=== PATIENT | female | born 1965 | race Caucasian/White ===

== ENCOUNTER → 2016-04-11 | Outpatient (CLI) | payer OTHER ==
[~2016-04-11] MED LIST: ALBU1.25 IH; ALBU17AE3 INH; ALBU2.5V4 IH; ALBU2.5V4 NEB; ALBUTEROL INHALER; CLTR1C90 TP; CODEINE; DESV50TA PO; DIAZ2TAB PO; FLUT1DIS26 IH; GUAI-647 PO; HYDR-3584 PO; HYDR-3922 PO; KLONOPIN; LEVO750T39 PO; LISI10TA2 PO; METF500T8 PO; PRD10T PO; PROMETHAZINE; RT-ALBUINH IH; TERB15CR8 TOP; TIOT4MIS2 IH; TRAZ100T92 PO; XANAX; [UNRECOGNIZED DRUG - REMARK]
--- NOTE | 2016-04-11 19:53 | Diagnostic Imaging Report ---
Digital mammogram bilateral screening. This study was compared to the prior exams of 01/14/2015 and 12/09/2014. At this time, there are no current complaints. The current study was also evaluated with a Computer Aided Detection (CAD) system. FINDINGS: The fibroglandular tissue in both breasts is dense. This does limit the sensitivity of this exam. Overall, there does not appear to have been any significant change when compared to the prior study. No primary or secondary sign of malignancy is noted. IMPRESSION: There is no radiographic evidence for malignancy. ACR BI-RADS Category 1: Negative. Result letter will be mailed to the patient. Note: At least 10% of breast cancer is not imaged by mammography. Dictated by: Dictated on workstation # [id number]
== END ==
LOC: RAD 14:09
PROVIDERS: ATTEND Nurse Practitioner Adult Health
DX: Z12.31 Encounter for screening mammogram for malignant neoplasm of breast (principal)

== ENCOUNTER 2017-02-16 05:30 | Outpatient (CLI) | payer MEDICAID ==
[~2017-02-16] VITALS: Ht 167.6 cm; Wt 78.0 kg
[2017-02-16] MEDS ORDERED: ASPI-586 PO (08:59)
== END 2017-02-16 09:05 ==
LOC: PREOP 05:30
PROVIDERS: ATTEND Surgery
DX: Z01.818 Encounter for other preprocedural examination (principal); L72.9 Follicular cyst of the skin and subcutaneous tissue, unspecified

== ENCOUNTER 2017-02-23 06:57 | Day surgery (SDC) | payer MEDICARE, MEDICAID ==
[~2017-02-23] VITALS: Ht 167.6 cm; Wt 78.0 kg
[~2017-02-23 06:57] MED LIST changes: +ASPI-586 PO
[2017-02-23 07:20] VITALS: BP 154/74
--- OUTSIDE RECORDS SUMMARY | 2017-02-23 07:44 | XMS REPORT ---
Author GERDA López [facility] eClinicalWorks Address Unknown Phone Unavailable Care Team Providers Care Psychologist Personnel Name Role Phone GERDA STARKS CP Unavailable Allergies, Adverse Reactions, Alerts Substance Reaction Event Type Xanax vomiting, wheezing, too stong for pt Drug Allergy Seroquel nausea Drug Allergy Neurontin nausea Drug Allergy Keflex dizziness Drug Allergy Flonase epistaxis Drug Allergy Chantix nausea and vomiting Drug Allergy Amitriptyline HCl nausea Drug Allergy Problems Problem Type Condition Code Onset Dates Condition Status Assessment Right ear impacted cerumen H61.21 Active Problem Prediabetes R73.09 Active Problem Essential hypertension I10 Active Problem Anxiety F41.9 Active Problem Nicotine addiction F17.200 Active Problem Right ear impacted cerumen H61.21 Active Problem Allergic rhinitis J30.9 Active Problem COPD (chronic obstructive pulmonary disease) J44.9 Active Problem Mood disorder F39 Active Problem Insomnia G47.00 Active Medications Medication Code System Code Instructions Start Date End Date Status Dosage Blood Glucose Monitor [facility] 0 one touch ultra 2 times a day 3 times weekly Dec 01, 2014 test blood sugar Trazodone HCl [facility] [address]-41 100 mg Orally PRN Dec 01, 2014 1 tablet at bedtime as needed Advair Diskus [facility] [address]-22 250-50 MCG/DOSE Inhalation Twice a day Feb 19, 2014 1 puff Spiriva HandiHaler [facility] [address]-09 18 MCG Inhalation Once a day Dec 01, 2014 1 capsule Proventil HFA [facility] [address]-66 108 (90 Base) MCG/ACT Inhalation every 4 hrs July 28, 2014 2 puffs as needed MetFORMIN HCl ER [facility] [address]-82 500 MG Orally Once a day Nov 11, 2014 1 tablet with evening meal Albuterol Sulfate [facility] [address]-68 (2.5 MG/3ML) 0.083% Inhalation every 6 hrs as needed Oct 31, 2014 3 ml Procedures Procedure Coding System Code Date Office Visit, Est Pt., Level 3 CPT-4 68270 Mar 04, 2015 Vital Signs Date/Time: Mar 04, 2015 Temperature 98.8 F Weight 170.1 lbs Height 66 in BMI 27.45 Index Blood Pressure Diastolic 70 mmHg Blood Pressure Systolic 138 mmHg Cardiac Monitoring Heart Rate 88 bpm Results No Known Results Summary Purpose eClinicalWorks Submission
[2017-02-23] MEDS ORDERED: RT-ALBUTEROL SULF 2.5 MG/3 ML PRE-MIX VIAL INH ONE (07:45)
--- OUTSIDE RECORDS SUMMARY | 2017-02-23 07:45 | XMS REPORT ---
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
--- OUTSIDE RECORDS SUMMARY | 2017-02-23 07:45 | XMS REPORT ---
Author Author TAVON STUART Organization eClinicalWorks Address Unknown Phone Unavailable Care Team Providers Care Cooling Tower Operator Name Role Phone TAVON STUART CP Unavailable Allergies No Known Allergies Problems Problem Type Condition Code Onset Dates Condition Status Assessment Hypercholesterolemia E78.0 Active Problem Prediabetes R73.09 Active Problem Essential hypertension I10 Active Problem Anxiety F41.9 Active Problem Nicotine addiction F17.200 Active Problem Right ear impacted cerumen H61.21 Active Problem Allergic rhinitis J30.9 Active Problem COPD (chronic obstructive pulmonary disease) J44.9 Active Problem Mood disorder F39 Active Problem Insomnia G47.00 Active Medications Medication Code System Code Instructions Start Date End Date Status Dosage Atorvastatin Calcium [facility] [address]-69 20 MG Orally Once a day Apr 30, 2015 1 tablet Results No Known Results Summary Purpose eClinicalWorks Submission
--- OUTSIDE RECORDS SUMMARY | 2017-02-23 07:45 | XMS REPORT ---
Author GERDA López Organization eClinicalWorks Address Unknown Phone Unavailable Care Team Providers Care Carbon Brushes Assembler Name Role Phone GERDA STARKS CP Unavailable Allergies No Known Allergies Problems Problem Type Condition Code Onset Dates Condition Status Problem Essential hypertension I10 Active Problem Nicotine addiction F17.200 Active Problem Mood disorder F39 Active Problem Anxiety F41.9 Active Problem COPD (chronic obstructive pulmonary disease) J44.9 Active Problem Prediabetes R73.09 Active Problem Insomnia G47.00 Active Problem Allergic rhinitis J30.9 Active Medications No Known Medications Results No Known Results Summary Purpose eClinicalWorks Submission
--- OUTSIDE RECORDS SUMMARY | 2017-02-23 07:45 | XMS REPORT ---
Author Author GERDA STARKS [facility] eClinicalWorks Address Unknown Phone Unavailable Care Team Providers Care Swing Frame Grinder Operator Name Role Phone GERDA STARKS CP Unavailable Allergies No Known Allergies Problems Problem Type Condition ICD-9 Code Onset Dates Condition Status Problem Nondependent tobacco use disorder 305.1 Active Problem Left eye pain 379.91 Active Problem Anxiety state, unspecified 300.00 Active Problem Prediabetes 790.29 Active Problem Hypertension 401.9 Active Problem COPD (chronic obstructive pulmonary disease) 496 Active Problem Emphysema/COPD 492.8 Active Problem Night sweats 780.8 Active Problem Allergic rhinitis 477.9 Active Problem Shortness of breath 786.05 Active Assessment Breast cancer screening V76.10 Active Problem Benign neoplasm of adrenal gland 227.0 Active Problem Insomnia, unspecified 780.52 Active Problem Unspecified episodic mood disorder 296.90 Active Medications No Known Medications Results No Known Results Summary Purpose eClinicalWorks Submission
--- OUTSIDE RECORDS SUMMARY | 2017-02-23 07:45 | XMS REPORT ---
Author GERDA López [facility] eClinicalWorks Address Unknown Phone Unavailable Care Team Providers Care Generation Engineer Name Role Phone GERDA STARKS CP Unavailable Allergies, Adverse Reactions, Alerts Substance Reaction Event Type Xanax vomiting, wheezing, too stong for pt Drug Allergy Seroquel nausea Drug Allergy Neurontin nausea Drug Allergy Keflex dizziness Drug Allergy Flonase epistaxis Drug Allergy Chantix nausea and vomiting Drug Allergy Amitriptyline HCl nausea Drug Allergy Problems Problem Type Condition Code Onset Dates Condition Status Assessment Prediabetes R73.09 Active Problem Essential hypertension I10 Active Assessment Essential hypertension I10 Active Assessment Allergic rhinitis J30.9 Active Problem Nicotine addiction F17.200 Active Problem Mood disorder F39 Active Problem Anxiety F41.9 Active Problem COPD (chronic obstructive pulmonary disease) J44.9 Active Problem Prediabetes R73.09 Active Problem Insomnia G47.00 Active Problem Allergic rhinitis J30.9 Active Medications Medication Code System Code Instructions Start Date End Date Status Dosage MetFORMIN HCl ER [facility] [address]-39 500 MG Orally Once a day Nov 11, 2014 1 tablet with evening meal Proventil HFA [facility] [address]-19 108 (90 Base) MCG/ACT Inhalation every 4 hrs July 28, 2014 2 puffs as needed Blood Glucose Monitor [facility] 0 one touch ultra 2 times a day 3 times weekly Dec 01, 2014 test blood sugar Advair Diskus [facility] [address]-05 250-50 MCG/DOSE Inhalation Twice a day Feb 19, 2014 1 puff Claritin [facility] [address]-70 10 MG Orally Once a day Jan 14, 2015 1 tablet Trazodone HCl [facility] [address]-42 100 mg Orally PRN Dec 01, 2014 1 tablet at bedtime as needed HydrOXYzine HCl [facility] [address]-88 10 MG Orally twice daily PRN September 23, 2014 1 Lisinopril [facility] [address]-07 10 MG Orally Once a day Nov 11, 2014 1 tablet Albuterol Sulfate [facility] [address]-38 (2.5 MG/3ML) 0.083% Inhalation every 6 hrs as needed Oct 31, 2014 3 ml Spiriva HandiHaler [facility] [address]-74 18 MCG Inhalation Once a day Dec 01, 2014 1 capsule Procedures Procedure Coding System Code Date Office Visit, Est Pt., Level 3 CPT-4 83642 Jan 14, 2015 Vital Signs Date/Time: Jan 14, 2015 Temperature 97.0 F Weight 166.0 lbs Height 66 in BMI 26.79 Index Blood Pressure Diastolic 78 mmHg Blood Pressure Systolic 138 mmHg Cardiac Monitoring Heart Rate 78 bpm Results No Known Results Summary Purpose eClinicalWorks Submission
--- OUTSIDE RECORDS SUMMARY | 2017-02-23 07:45 | XMS REPORT ---
Author TAVON Griffin Organization eClinicalWorks Address Unknown Phone Unavailable Care Team Providers Care Electrician Helper Powerhouse Name Role Phone TAVON STUART CP Unavailable Allergies No Known Allergies Problems Problem Type Condition Code Onset Dates Condition Status Problem Mood disorder F39 Active Problem Anxiety F41.9 Active Problem Nicotine addiction F17.200 Active Problem Compression fracture T14.8 Active Problem Slow transit constipation K59.01 Active Problem Paroxysmal atrial fibrillation I48.0 Active Problem Neuropathy G62.9 Active Problem Right ear impacted cerumen H61.21 Active Problem Non compliance w medication regimen Z91.14 Active Problem Hypercholesterolemia E78.0 Active Problem Prediabetes R73.09 Active Problem COPD (chronic obstructive pulmonary disease) J44.9 Active Problem Allergic rhinitis J30.9 Active Problem Essential hypertension I10 Active Problem Insomnia G47.00 Active Medications No Known Medications Results No Known Results Summary Purpose eClinicalWorks Submission
--- OUTSIDE RECORDS SUMMARY | 2017-02-23 07:45 | XMS REPORT ---
Author TAVON Griffin [facility] eClinicalWorks Address Unknown Phone Unavailable Care Team Providers Care Executive Personal Assistant Name Role Phone TAVON STUART Unavailable Allergies No Known Allergies Problems Problem Type Condition Code Onset Dates Condition Status Problem Mood disorder F39 Active Problem Anxiety F41.9 Active Problem Nicotine addiction F17.200 Active Problem Compression fracture T14.8 Active Assessment Compression fracture T14.8 Active Problem Slow transit constipation K59.01 Active Assessment Slow transit constipation K59.01 Active Assessment Hypercholesterolemia E78.0 Active Problem Paroxysmal atrial fibrillation I48.0 Active Problem Neuropathy G62.9 Active Problem Right ear impacted cerumen H61.21 Active Problem Non compliance w medication regimen Z91.14 Active Problem Hypercholesterolemia E78.0 Active Assessment Neuropathy G62.9 Active Assessment Essential hypertension I10 Active Assessment Paroxysmal atrial fibrillation I48.0 Active Assessment Anxiety F41.9 Active Problem Prediabetes R73.09 Active Problem COPD (chronic obstructive pulmonary disease) J44.9 Active Assessment COPD (chronic obstructive pulmonary disease) J44.9 Active Problem Allergic rhinitis J30.9 Active Assessment Prediabetes R73.09 Active Problem Essential hypertension I10 Active Problem Insomnia G47.00 Active Medications Medication Code System Code Instructions Start Date End Date Status Dosage Lisinopril [facility] [address]-28 10 MG Orally Once a day Nov 11, 2014 1 tablet Cetirizine HCl [facility] [address]-95 10 MG Orally Once a day Feb 13, 2015 1 tablet as needed Blood Glucose Monitor [facility] 0 one touch ultra Once a day Dec 01, 2014 test blood sugar MetFORMIN HCl ER [facility] [address]-08 500 MG Orally Once a day Nov 11, 2014 1 tablet with evening meal Albuterol Sulfate [facility] [address]-20 (2.5 MG/3ML) 0.083% Inhalation every 6 hrs as needed Oct 31, 2014 3 ml HydrOXYzine HCl [facility] [address]-69 10 MG Orally twice daily PRN September 23, 2014 1 Albuterol Sulfate [facility] [address]-10 108 (90 Base) MCG/ACT Inhalation every 4 hrs October 01, 2015 1 puff as needed Atorvastatin Calcium [facility] [address]-22 20 MG Orally Once a day Apr 30, 2015 1 tablet Gabapentin [facility] [address]-83 100 MG Orally 3 times a day June 15, 2015 as directed Triamcinolone Acetonide [facility] [address]-70 0.5 % Externally- apply to rash on legs Twice a day Apr 23, 2015 1 application to affected area Advair Diskus [facility] [address]-77 250-50 MCG/DOSE Inhalation Twice a day Feb 19, 2014 1 puff MiraLax [facility] [address]-77 17 gm/dose Orally Once a day October 01, 2015 as directed Tylenol/Codeine #3 [facility] [address]-29 300-30 MG Orally at night as needed October 09, 2015 1 tablet Spiriva HandiHaler [facility] [address]-81 18 MCG Inhalation Once a day Dec 01, 2014 1 capsule Proventil HFA [facility] [address]-80 108 (90 Base) MCG/ACT Inhalation every 4 hrs July 28, 2014 2 puffs as needed Toprol XL [facility] [address]-66 25 MG Orally Once a day October 01, 2015 1 tablet Procedures Procedure Coding System Code Date Office Visit, Est Pt., Level 4 CPT-4 19882 Oct 22, 2015 Results No Known Results Summary Purpose eClinicalWorks Submission
--- OUTSIDE RECORDS SUMMARY | 2017-02-23 07:45 | XMS REPORT ---
Author Author GERDA STARKS Organization eClinicalWorks Address Unknown Phone Unavailable Care Team Providers Care Forgeman Helper Name Role Phone GERDA STARKS CP Unavailable Allergies No Known Allergies Problems Problem Type Condition Code Onset Dates Condition Status Problem Nondependent tobacco use disorder 305.1 Active Problem Left eye pain 379.91 Active Problem Anxiety state, unspecified 300.00 Active Problem Prediabetes 790.29 Active Problem Hypertension 401.9 Active Problem COPD (chronic obstructive pulmonary disease) 496 Active Problem Emphysema/COPD 492.8 Active Problem Night sweats 780.8 Active Problem Allergic rhinitis 477.9 Active Problem Shortness of breath 786.05 Active Problem Benign neoplasm of adrenal gland 227.0 Active Problem Insomnia, unspecified 780.52 Active Problem Unspecified episodic mood disorder 296.90 Active Medications No Known Medications Results No Known Results Summary Purpose eClinicalWorks Submission
--- NOTE | 2017-02-23 07:46 | Progress Note-Pre Operative ---
Pre-Operative Progress Note H&P Reviewed The H&P was reviewed, patient examined and no changes noted. Date Seen by Provider: Feb 23, 2017 Time Seen by Provider: 07:45 Date H&P Reviewed: Feb 23, 2017 Time H&P Reviewed: 07:46 Pre-Operative Diagnosis: cyst of head CAIO LANCASTER DO Feb 23, 2017 07:46
--- OUTSIDE RECORDS SUMMARY | 2017-02-23 07:46 | XMS REPORT ---
Author NAYLA Law [facility] eClinicalWorks Address Unknown Phone Unavailable Care Team Providers Care Multi Township Assessor Name Role Phone NAYLA MCKEON CP Unavailable Allergies, Adverse Reactions, Alerts Substance Reaction Event Type Xanax vomiting, wheezing, too stong for pt Drug Allergy Seroquel nausea Drug Allergy Neurontin nausea Drug Allergy Keflex dizziness Drug Allergy Flonase epistaxis Drug Allergy Chantix nausea and vomiting Drug Allergy Amitriptyline HCl nausea Drug Allergy Problems Problem Type Condition ICD-9 Code Onset [...] Problem Shortness of breath 786.05 Active Assessment COPD (chronic obstructive pulmonary disease) 496 Active Problem Benign neoplasm of adrenal gland 227.0 Active Assessment Hypertension 401.9 Active Problem Insomnia, unspecified 780.52 Active Assessment Prediabetes 790.29 Active Problem Unspecified episodic mood disorder 296.90 Active Medications Medication Code System Code Instructions Start Date End Date Status Dosage Albuterol Sulfate [facility] [address]-43 (2.5 MG/3ML) 0.083% Inhalation every 6 hrs as needed Oct 31, 2014 3 ml Lisinopril [facility] [address]-17 10 MG Orally Once a day Nov 11, 2014 1 tablet Advair Diskus [facility] [address]-68 250-50 MCG/DOSE Inhalation Twice a day Feb 19, 2014 1 puff HydrOXYzine HCl [facility] [address]-64 10 MG Orally twice daily PRN September 23, [address] [facility] [address]-76 50 MG Orally Once a day October 16, 2014 1 tablet Proventil HFA [facility] [address]-76 108 (90 Base) MCG/ACT Inhalation every 4 hrs July 28, 2014 2 puffs as needed MetFORMIN HCl ER [facility] [address]-00 500 MG Orally Once a day Nov 11, 2014 1 tablet with evening meal Spiriva HandiHaler [facility] [address]-72 18 MCG Inhalation Once a day Dec 01, 2014 1 capsule Trazodone HCl [facility] [address]-12 100 mg Orally PRN Dec 01, 2014 1 tablet at bedtime as needed Procedures Procedure Coding System Code Date Office Visit, Est Pt., Level 4 CPT-4 22374 Dec 01, 2014 Vital Signs Date/Time: Dec 01, 2014 Temperature 98.6 F Weight 168.1 lbs Height 66 in BMI 27.13 Index Blood Pressure Diastolic 68 mmHg Blood Pressure Systolic 126 mmHg Cardiac Monitoring Heart Rate 84 bpm Results No Known Results Summary Purpose eClinicalWorks Submission
--- OUTSIDE RECORDS SUMMARY | 2017-02-23 07:46 | XMS REPORT ---
Author Author TAVON STUART Organization eClinicalWorks Address Unknown Phone Unavailable Care Team Providers Care Poultry Debeaker Name Role Phone TAVON STUART CP Unavailable [...]
--- OUTSIDE RECORDS SUMMARY | 2017-02-23 07:46 | XMS REPORT ---
Author Author GERDA STARKS Organization eClinicalWorks Address Unknown Phone Unavailable Care Team Providers Care Barrel Painter Name Role Phone GERDA STARKS CP Unavailable [...]
--- OUTSIDE RECORDS SUMMARY | 2017-02-23 07:46 | XMS REPORT ---
Author Author GERDA STARKS Organization eClinicalWorks Address Unknown Phone Unavailable Care Team Providers Care Cable Driller Name Role Phone GERDA STARKS CP Unavailable [...]
--- OUTSIDE RECORDS SUMMARY | 2017-02-23 07:46 | XMS REPORT ---
Author Author KIERSTEN CORBIN [facility] eClinicalWorks Address Unknown Phone Unavailable Care Team Providers Care Cellars Supervisor Name Role Phone KIERSTEN CORBIN Unavailable Allergies, Adverse Reactions, Alerts Substance Reaction [...] Active Problem Insomnia, unspecified 780.52 Active Assessment Depression, major, recurrent, in remission 296.35 Active Assessment Anxiety state, unspecified 300.00 Active Problem Shortness of breath 786.05 Active Problem Emphysema/COPD 492.8 Active Problem Allergic rhinitis 477.9 Active Problem Anxiety state, unspecified 300.00 Active Problem Nondependent tobacco use disorder 305.1 Active Problem Night sweats 780.8 Active Problem Left eye pain 379.91 Active Medications Medication Code System Code Instructions Start Date End Date Status Dosage Proventil HFA [facility] [address]-43 108 (90 Base) MCG/ACT Inhalation every 4 hrs July 28, 2014 2 puffs as needed Albuterol Sulfate [facility] [address]-03 (2.5 MG/3ML) 0.083% Inhalation every 6 hrs as needed Oct 31, 2014 3 ml Pristiq [facility] [address]-58 50 MG Orally Once a day October 16, 2014 1 tablet Trazodone HCl [facility] [address]-14 50 MG Orally PRN October 16, 2014 1 tablet at bedtime as needed Advair Diskus [facility] [address]-14 250-50 MCG/DOSE Feb 19, 2014 inhale 1 puff by Inhalation route in the morning and evening 2 times per day approximately 12 hours apart rinse mouth and spit HydrOXYzine HCl [facility] [address]-84 10 MG Orally twice daily PRN September 23, 2014 1 Procedures Procedure Coding System Code Date Office Visit, Est Pt., Level 3 CPT-4 11915 Nov 27, 2014 Vital Signs Date/Time: Nov 27, 2014 Temperature 98.0 F Weight 164.8 lbs Height 66 in BMI 26.60 Index Blood Pressure Diastolic 52 mmHg Blood Pressure Systolic 105 mmHg Cardiac Monitoring Heart Rate 108 bpm Results No Known Results Summary Purpose eClinicalWorks Submission
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
--- OUTSIDE RECORDS SUMMARY | 2017-02-23 07:46 | XMS REPORT ---
Author Author TAVON STUART Organization [employer] Address Unknown Phone Unavailable Care Team Providers Care Teacher Of The Visually Impaired Name Role Phone TAVON STUART CP Unavailable [...]
--- OUTSIDE RECORDS SUMMARY | 2017-02-23 07:47 | XMS REPORT ---
Author Author TAVON STUART Organization [employer] Address Unknown Phone Unavailable Care Team Providers Care Hand Ii Tube Bender Name Role Phone TAVON STUART CP Unavailable [...]
--- OUTSIDE RECORDS SUMMARY | 2017-02-23 07:47 | XMS REPORT ---
Author Author GERDA STARKS [facility] [employer] Address Unknown Phone Unavailable Care Team Providers Care Soup Person Name Role Phone GERDA STARKS CP Unavailable [...]
--- OUTSIDE RECORDS SUMMARY | 2017-02-23 07:47 | XMS REPORT ---
Author Author TAVON STUART Organization [facility] Address [address] [place] [address] Care Team Providers Care Wide Area Network Engineer Name Role Phone TAVON STUART Unavailable PROBLEMS Type Condition ICD9-CM Code [id number] Code Onset Dates Condition Status SNOMED Code Problem Nicotine addiction F17.200 Active 81351472 Problem Right ear impacted cerumen H61.21 Active 48806714 Problem Anxiety F41.9 Active 72615879 Problem Paroxysmal atrial fibrillation I48.0 Active 066305648 Problem Compression fracture T14.8 Active 617143493 Problem Hypercholesterolemia E78.0 Active 75928880 Problem Neuropathy G62.9 Active 212689339 Problem Slow transit constipation K59.01 Active 95026565 Problem Non compliance w medication regimen Z91.14 Active 263978124 Problem COPD (chronic obstructive pulmonary disease) J44.9 Active 35181380 Problem Allergic rhinitis J30.9 Active 99199245 Problem Essential hypertension I10 Active 44780770 Problem Insomnia G47.00 Active 916647797 Problem Prediabetes R73.09 Active 0405340 Problem Mood disorder F39 Active 42883664 ALLERGIES Unknown Allergies SOCIAL HISTORY No smoking Hx information available PLAN OF CARE VITAL SIGNS MEDICATIONS Unknown Medications RESULTS No Results PROCEDURES No Known procedures IMMUNIZATIONS No Known Immunizations
--- OUTSIDE RECORDS SUMMARY | 2017-02-23 07:47 | XMS REPORT ---
Author Author TAVON STUART Organization [employer] Address Unknown Phone Unavailable Care Team Providers Care Social Work Msw Name Role Phone TAVON STUART CP Unavailable [...]
--- OUTSIDE RECORDS SUMMARY | 2017-02-23 07:47 | XMS REPORT ---
Author Author TAVON STUART Organization [employer] Address Unknown Phone Unavailable Care Team Providers Care Enrober Name Role Phone TAVON STUART CP Unavailable [...]
--- OUTSIDE RECORDS SUMMARY | 2017-02-23 07:47 | XMS REPORT ---
Author GERDA López [facility] [employer] Address Unknown Phone Unavailable Care Team Providers Care Pianos And Organs Salesperson Name Role Phone GERDA STARKS CP Unavailable Allergies, Adverse Reactions, Alerts Substance Reaction Event Type Xanax vomiting, wheezing, too stong for pt Drug Allergy Seroquel nausea Drug Allergy Neurontin nausea Drug Allergy Keflex dizziness Drug Allergy Flonase epistaxis Drug Allergy Chantix nausea and vomiting Drug Allergy Amitriptyline HCl nausea Drug Allergy Problems Problem Type Condition Code Onset Dates Condition Status Assessment Essential hypertension I10 Active Problem Essential hypertension I10 Active Assessment Prediabetes R73.09 Active Assessment Allergic rhinitis J30.9 Active Problem Nicotine addiction F17.200 Active Problem Mood disorder F39 Active Problem Anxiety F41.9 Active Problem COPD (chronic obstructive pulmonary disease) J44.9 Active Problem Prediabetes R73.09 Active Problem Insomnia G47.00 Active Problem Allergic rhinitis J30.9 Active Medications Medication Code System Code Instructions Start Date End Date Status Dosage Advair Diskus [facility] [address]-04 250-50 MCG/DOSE Inhalation Twice a day Feb 19, 2014 1 puff Albuterol Sulfate [facility] [address]-27 (2.5 MG/3ML) 0.083% Inhalation every 6 hrs as needed Oct 31, 2014 3 ml Trazodone HCl [facility] [address]-65 100 mg Orally PRN Dec 01, 2014 1 tablet at bedtime as needed HydrOXYzine HCl [facility] [address]-99 10 MG Orally twice daily PRN September 23, 2014 1 MetFORMIN HCl ER [facility] [address]-77 500 MG Orally Once a day Nov 11, 2014 1 tablet with evening meal Blood Glucose Monitor [facility] 0 one touch ultra 2 times a day 3 times weekly Dec 01, 2014 test blood sugar Cetirizine HCl [facility] [address]-26 10 MG Orally Once a day Feb 13, 2015 1 tablet as needed Spiriva HandiHaler [facility] [address]-78 18 MCG Inhalation Once a day Dec 01, 2014 1 capsule Lisinopril [facility] [address]-37 10 MG Orally Once a day Nov 11, 2014 1 tablet Proventil HFA [facility] [address]-02 108 (90 Base) MCG/ACT Inhalation every 4 hrs July 28, 2014 2 puffs as needed Procedures Procedure Coding System Code Date Office Visit, Est Pt., Level 3 CPT-4 98309 Feb 13, 2015 GLYCATED HEMOGLOBIN TEST CPT-4 09333 Feb 13, 2015 Vital Signs Date/Time: Feb 13, 2015 Temperature 98.2 F Weight 172.3 lbs Height 66 in BMI 27.81 Index Blood Pressure Diastolic 70 mmHg Blood Pressure Systolic 148 mmHg Cardiac Monitoring Heart Rate 88 bpm Results Name Result Date Reference Range Unit Abnormality Flag A1C (IN HOUSE) ----A1C IN HOUSE 5.8% [id number] 4.30 - 5.6 % ----Lot # [id number] ----Exp date [id number] Summary Purpose [employer] Submission
--- OUTSIDE RECORDS SUMMARY | 2017-02-23 07:47 | XMS REPORT ---
Author TAVON Griffin Organization [employer] Address Unknown Phone Unavailable Care Team Providers Care Cloth Bale Header Name Role Phone TAVON STUATR CP Unavailable Allergies No Known Allergies Problems [...]
--- OUTSIDE RECORDS SUMMARY | 2017-02-23 07:47 | XMS REPORT ---
Author Author JEREMY SNOWDEN Organization [employer] Address Unknown Phone Unavailable Care Team Providers Care Pharmacist Manager Name Role Phone JEREMY SNOWDEN CP Unavailable Allergies, Adverse Reactions, Alerts Substance [...] 296.90 Active Problem Insomnia, unspecified 780.52 Active Problem Shortness of breath 786.05 Active Problem Emphysema/COPD 492.8 Active Problem Allergic rhinitis 477.9 Active Problem Anxiety state, unspecified 300.00 Active Problem Nondependent tobacco use disorder 305.1 Active Problem Night sweats 780.8 Active Problem Left eye pain 379.91 Active Assessment Breast cancer screening V76.10 Active Assessment Nondependent tobacco use disorder 305.1 Active Assessment Pap test, as part of routine gynecological examination V76.2 Active Assessment Perimenopausal symptoms 627.2 Active Assessment Routine gynecological examination V72.31 Active Medications Medication Code System Code Instructions Start Date End Date Status Dosage Albuterol Sulfate [facility] [address]-47 (2.5 MG/3ML) 0.083% Inhalation every 6 hrs as needed Oct 31, 2014 3 ml Advair Diskus [facility] [address]-17 250-50 MCG/DOSE Feb 19, 2014 inhale 1 puff by Inhalation route in the morning and evening 2 times per day approximately 12 hours apart rinse mouth and spit Proventil HFA [facility] [address]-01 108 (90 Base) MCG/ACT Inhalation every 4 hrs July 28, 2014 2 puffs as needed Trazodone HCl [facility] [address]-57 50 MG Orally Once a day 1 tablet at bedtime as needed Zofran ODT [facility] [address]-25 4 MG Orally every 8 hrs August 30, 2014 1 tablet on the tongue and allow to dissolve HydrOXYzine HCl [facility] [address]-84 50 MG Orally every 6 hrs 1 tablet as needed Valium [facility] [address]-77 2 MG Orally Once a day PRN anxiety May 30, 2014 1 tablet Pristiq [facility] [address]-41 50 MG Orally Once a day 1 tablet Procedures Procedure Coding System Code Date Preventive Care Est Pt. Age 40-64 CPT-4 34717 Nov 06, 2014 SPECIMEN HANDLING CPT-4 66542 Nov 06, 2014 Vital Signs Date/Time: Nov 06, 2014 Temperature 97.9 F Weight 167.4 lbs Height 66 in BMI 27.02 Index Blood Pressure Diastolic 82 mmHg Blood Pressure Systolic 120 mmHg Cardiac Monitoring Heart Rate 88 bpm Results Name Result Date Reference Range Unit Abnormality Flag PDF Report PAP TEST W/ HPV REGARDLESS Summary Purpose [employer] Submission
--- OUTSIDE RECORDS SUMMARY | 2017-02-23 07:48 | XMS REPORT ---
Author Author MARILU SQUIRES Organization [facility] Address [address] [place] [address] Care Team Providers Care Assembler Piano Name Role Phone CARLA SQUIRESKUSUM Unavailable PROBLEMS Type Condition ICD9-CM Code IWF78-US Code Onset Dates Condition Status SNOMED Code Problem Nicotine addiction F17.200 Active 11424570 Problem Right ear impacted cerumen H61.21 Active 22098712 Problem Anxiety F41.9 Active 57612088 Problem Paroxysmal atrial fibrillation I48.0 Active 716756717 Problem Compression fracture T14.8 Active 745724778 Problem Hypercholesterolemia E78.0 Active 96994723 Problem Neuropathy G62.9 Active 444094621 Problem Slow transit constipation K59.01 Active 62979530 Problem Non compliance w medication regimen Z91.14 Active 288232102 Assessment Atrial fibrillation, unspecified type I48.91 Nov, Active 32130313 Assessment Syncope, unspecified syncope type R55 Nov, Active 286315453 Assessment Hyperlipidemia, unspecified hyperlipidemia type E78.5 Nov, Active 82694817 Problem COPD (chronic obstructive pulmonary disease) J44.9 Active 76928512 Problem Allergic rhinitis J30.9 Active 64650072 Problem Essential hypertension I10 Active 66419340 Problem Insomnia G47.00 Active 964798742 Problem Prediabetes R73.09 Active 6509141 Problem Mood disorder F39 Active 26859484 ALLERGIES Substance Reaction Event Type Date Status Xanax vomiting, wheezing, too stong for pt Drug Allergy Nov, Active Seroquel nausea Drug Allergy Nov, Active Neurontin nausea Drug Allergy Nov, Active Keflex dizziness Drug Allergy Nov, Active Flonase epistaxis Drug Allergy Nov, Active Chantix nausea and vomiting Drug Allergy Nov, Active Amitriptyline HCl nausea Drug Allergy Nov, Active SOCIAL HISTORY No smoking Hx information available PLAN OF CARE VITAL SIGNS Height 66 in 2015-11-27 Weight 164 lbs 2015-11-27 Heart Rate 92 bpm 2015-11-27 Respiratory Rate 18 2015-11-27 BMI 26.47 kg/m2 2015-11-27 Blood pressure systolic 144 mmHg 2015-11-27 Blood pressure diastolic 88 mmHg 2015-11-27 MEDICATIONS Medication Instructions Dosage Frequency Start Date End Date Duration Status Lisinopril 10 MG Orally Once a day 1 tablet 24h Oct, Active Cetirizine HCl 10 MG Orally Once a day 1 tablet as needed 24h Jan, Active Triamcinolone Acetonide 0.5 % Externally- apply to rash on legs Twice a day 1 application to affected area 12h Apr, Active HydrOXYzine HCl 10 MG Orally twice daily PRN 1 Sep, Active MiraLax 17 gm/dose Orally Once a day as directed 24h Sep, Active Atorvastatin Calcium 20 MG Orally Once a day 1 tablet 24h 11 Apr, 2015 Active Advair Diskus 250-50 MCG/DOSE Inhalation Twice a day 1 puff 12h Feb, Active Gabapentin 100 MG Orally 3 times a day as directed 8h May, Active Albuterol Sulfate 108 (90 Base) MCG/ACT Inhalation every 4 hrs 1 puff as needed 4h Sep, Active Acetaminophen-Codeine #4 300-60 MG Orally every 6 hrs 1 tablet as needed 6h Sep, Active MetFORMIN HCl ER 500 MG Orally Once a day 1 tablet with evening meal 24h Oct, Active Toprol XL 25 MG Orally Once a day 1 tablet 24h Sep, Active Tylenol/Codeine #3 300-30 MG Orally at night as needed 1 tablet Sep, Active RESULTS Name Result Date Reference Range Echo 2D 2015-11-30 Exercise Stress Nuclear Test 2015-11-30 PROCEDURES Procedure Date Ordered Related Diagnosis Body Site EKG, TRACING (IN-HOUSE) 2015-11-27 N/A Office Visit, New Pt., Level 4 Nov 27, 2015 ELECTROCARDIOGRAM, TRACING Nov 27, 2015 IMMUNIZATIONS No Known Immunizations
--- OUTSIDE RECORDS SUMMARY | 2017-02-23 07:48 | XMS REPORT ---
Author Author TAVON STUART [facility] [employer] Address Unknown Phone Unavailable Care Team Providers Care Product Support Specialist Name Role Phone TAVON STUART CP Unavailable [...] (chronic obstructive pulmonary disease) J44.9 Active Assessment Acute pain R52 Active Problem Allergic rhinitis J30.9 Active Problem Essential hypertension I10 Active Problem Insomnia G47.00 Active Medications Medication Code System Code Instructions Start Date End Date Status Dosage Tylenol/Codeine #[address] [facility] [address]-67 300-30 MG Orally 3 times a day NEEDED October 09, 2015 1 tablet Results No Known Results Summary Purpose [employer] Submission
--- OUTSIDE RECORDS SUMMARY | 2017-02-23 07:48 | XMS REPORT ---
Author MARGARITA Daniels [facility] [employer] Address Unknown Phone Unavailable Care Team Providers Care Hostess Cashier Name Role Phone MARGARITA FRAZIER CP Unavailable Allergies No Known Allergies Problems Problem Type Condition Code Onset Dates Condition Status Problem Right ear impacted cerumen H61.21 Active Problem Hypercholesterolemia E78.0 Active Problem Neuropathy G62.9 Active Problem Chronic obstructive pulmonary disease with acute exacerbation J44.1 Active Problem Depression, unspecified depression type F32.9 Active Problem Major depressive disorder, recurrent, moderate F33.1 Active Problem Slow transit constipation K59.01 Active Problem Non compliance w medication regimen Z91.14 Active Problem Paroxysmal atrial fibrillation I48.0 Active Problem Compression fracture T14.8 Active Problem Essential hypertension I10 Active Problem Prediabetes R73.09 Active Assessment Major depressive disorder, recurrent, moderate F33.1 Active Problem Insomnia G47.00 Active Problem Mood disorder F39 Active Problem COPD (chronic obstructive pulmonary disease) J44.9 Active Problem Nicotine addiction F17.200 Active Problem Allergic rhinitis J30.9 Active Problem Anxiety F41.9 Active Medications No Known Medications Procedures Procedure Coding System Code Date Psych diagnostic evaluation, established patient CPT-4 77450 Dec 24, 2015 Results No Known Results Summary Purpose [employer] Submission
--- OUTSIDE RECORDS SUMMARY | 2017-02-23 07:48 | XMS REPORT ---
Author Author TAVON STUART Organization [facility] Address [address] [place] [address] Care Team Providers Care Sock Liner Name Role Phone NARCISO TAVON Unavailable PROBLEMS Type Condition ICD9-CM Code MEL70-TN Code Onset Dates Condition Status SNOMED Code Problem Paroxysmal atrial fibrillation I48.0 Active 039364601 Problem Non compliance w medication regimen Z91.14 Active 113250704 Problem Compression fracture T14.8 Active 394260661 Problem Restless legs syndrome G25.81 Active 02719839 Problem Chronic pain syndrome G89.4 Active 617467212 Problem Depression, unspecified depression type F32.9 Active 46422975 Problem Chronic obstructive pulmonary disease with acute exacerbation J44.1 Active 988856356 Problem Routine gynecological examination Z01.419 Active 655585609 Problem Coccygeal pain M53.3 Active 19192178 Problem Insomnia G47.00 Active 992065525 Problem COPD (chronic obstructive pulmonary disease) J44.9 Active 32512518 Problem Anxiety F41.9 Active 67734560 Problem Mood disorder F39 Active 94881131 Problem Nicotine addiction F17.200 Active 07353415 Problem Right ear impacted cerumen H61.21 Active 10336905 Problem Essential hypertension I10 Active 94275340 Problem Hypercholesterolemia E78.0 Active 19293347 Problem Allergic rhinitis J30.9 Active 98343623 Problem Slow transit constipation K59.01 Active 76136436 ALLERGIES Unknown Allergies SOCIAL HISTORY No smoking Hx information available PLAN OF CARE VITAL SIGNS MEDICATIONS Unknown Medications RESULTS No Results PROCEDURES No Known procedures IMMUNIZATIONS No Known Immunizations
--- OUTSIDE RECORDS SUMMARY | 2017-02-23 07:48 | XMS REPORT ---
Author NAYLA Law Organization [employer] Address Unknown Phone Unavailable Care Team Providers Care Goods Layer Name Role Phone NAYLA MCKEON CP Unavailable Allergies No Known Allergies Problems [...] End Date Status Dosage Blood Glucose Monitor NDC 0 one touch ultra 2 times a day 3 times weekly Dec 01, 2014 test blood sugar Results No Known Results Summary Purpose [employer] Submission
--- OUTSIDE RECORDS SUMMARY | 2017-02-23 07:48 | XMS REPORT ---
Author Author YANDEL HUNT Organization [employer] Address Unknown Phone Unavailable Care Team Providers Care Dispatcher Maintenance Name Role Phone YANDEL HUNT CP Unavailable Allergies, Adverse Reactions, Alerts Substance Reaction Event Type Xanax vomiting, wheezing, too stong for pt Drug Allergy Seroquel nausea Drug Allergy Neurontin nausea Drug Allergy Keflex dizziness Drug Allergy Flonase epistaxis Drug Allergy Chantix nausea and vomiting Drug Allergy Amitriptyline HCl nausea Drug Allergy Problems Problem Type Condition Code Onset Dates Condition Status Assessment Dermatitis L30.9 Active Problem Prediabetes R73.09 Active Problem Essential hypertension I10 Active Problem Anxiety F41.9 Active Problem Nicotine addiction F17.200 Active Problem Right ear impacted cerumen H61.21 Active Problem Allergic rhinitis J30.9 Active Problem COPD (chronic obstructive pulmonary disease) J44.9 Active Problem Mood disorder F39 Active Problem Insomnia G47.00 Active Medications Medication Code System Code Instructions Start Date End Date Status Dosage Blood Glucose Monitor [facility] 0 one touch ultra 2 times a day 3 times weekly Dec 01, 2014 test blood sugar Spiriva HandiHaler [facility] [address]-58 18 MCG Inhalation Once a day Dec 01, 2014 1 capsule MetFORMIN HCl ER [facility] [address]-22 500 MG Orally Once a day Nov 11, 2014 1 tablet with evening meal Proventil HFA [facility] [address]-49 108 (90 Base) MCG/ACT Inhalation every 4 hrs July 28, 2014 2 puffs as needed Albuterol Sulfate [facility] [address]-47 (2.5 MG/3ML) 0.083% Inhalation every 6 hrs as needed Oct 31, 2014 3 ml Triamcinolone Acetonide [facility] [address]-40 0.5 % Externally- apply to rash on legs Twice a day Apr 23, 2015 1 application to affected area Advair Diskus [facility] [address]-12 250-50 MCG/DOSE Inhalation Twice a day Feb 19, 2014 1 puff Procedures Procedure Coding System Code Date Office Visit, Est Pt., Level 3 CPT-4 83899 Apr 23, 2015 Vital Signs Date/Time: Apr 23, 2015 Temperature 97.7 F Weight 174.5 lbs Height 66 in BMI 28.16 Index Blood Pressure Diastolic 78 mmHg Blood Pressure Systolic 124 mmHg Cardiac Monitoring Heart Rate 72 bpm Results No Known Results Summary Purpose [employer]Works Submission
--- OUTSIDE RECORDS SUMMARY | 2017-02-23 07:48 | XMS REPORT ---
Author Author TAVON STUART Organization [facility] Address [address] [place] [address] Care Team Providers Care Tobacco Drying Machine Operator Name Role Phone HOLDEN STUARTNETTE Unavailable PROBLEMS Type Condition ICD9-CM Code [id number] Code Onset Dates Condition Status SNOMED Code Problem Paroxysmal atrial fibrillation I48.0 Active 915869697 Problem Non compliance w medication regimen Z91.14 Active 711398344 Problem Compression fracture T14.8 Active 712251949 Problem Restless legs syndrome G25.81 Active 07041627 Problem Chronic pain syndrome G89.4 Active 950589574 Problem Depression, unspecified depression type F32.9 Active 40810497 Problem Chronic obstructive pulmonary disease with acute exacerbation J44.1 Active 479360358 Problem Routine gynecological examination Z01.419 Active 340542887 Problem Coccygeal pain M53.3 Active 39293238 Problem Insomnia G47.00 Active 152819538 Problem COPD (chronic obstructive pulmonary disease) J44.9 Active 34501754 Problem Anxiety F41.9 Active 20082354 Problem Mood disorder F39 Active 46331392 Problem Nicotine addiction F17.200 Active 06831623 Problem Right ear impacted cerumen H61.21 Active 02026068 Problem Essential hypertension I10 Active 78416671 Problem Hypercholesterolemia E78.0 Active 35396122 Problem Allergic rhinitis J30.9 Active 51645464 Problem Slow transit constipation K59.01 Active 29569040 ALLERGIES Substance Reaction Event Type Date Status Xanax vomiting, wheezing, too stong for pt Drug Allergy Mar, Active Seroquel nausea Drug Allergy Mar, Active Neurontin nausea Drug Allergy Mar, Active Keflex dizziness Drug Allergy Mar, Active Flonase epistaxis Drug Allergy Mar, Active Chantix nausea and vomiting Drug Allergy Mar, Active Amitriptyline HCl nausea Drug Allergy Mar, Active SOCIAL HISTORY No smoking Hx information available PLAN OF CARE Activity Details Follow Up 4 Weeks Reason:recheck a fib VITAL SIGNS Height 66 in 2016-03-31 Weight 169 lbs 2016-03-31 Temperature 98.1 degrees Fahrenheit 2016-03-31 Heart Rate 80 bpm 2016-03-31 Respiratory Rate 18 2016-03-31 BMI 27.27 kg/m2 2016-03-31 Blood pressure systolic 140 mmHg 2016-03-31 Blood pressure diastolic 60 mmHg 2016-03-31 MEDICATIONS Medication Instructions Dosage Frequency Start Date End Date Duration Status Albuterol Sulfate 108 (90 Base) MCG/ACT Inhalation every 4 hrs 1 puff as needed 4h Sep, Active Albuterol Sulfate (2.5 MG/3ML) 0.083% Inhalation every 6 hrs as needed 3 ml Oct, Active Toprol XL 25 MG Orally Once a day 1 tablet 24h Feb, Active Spiriva HandiHaler 18 MCG Inhalation Once a day 1 capsule 24h Nov, Active Pravastatin Sodium 20 mg Orally Once a day 1 tablet 24h Feb, Active Gabapentin 300 MG Orally Three times a day 1 capsule 8h Active Blood Glucose Monitor one touch ultra test blood sugar 24h Nov, Active RESULTS Name Result Date Reference Range TRICHOMONAS (IN HOUSE) 2016-03-31 TRICHOMONAS NEG Control + Lot # [id number] Exp date 02/2017 UA LONG DIP (IN HOUSE) 2016-03-31 Lot # [id number] Exp date 11/2016 Clarity clear Color yellow Odor no GLU Neg SYLVIA Neg KET Neg SG 1.020 BLO 2+ pH 5.5 Protein Neg URO 0.2 NIT Neg BHARATH Trace Lot # Exp BACTERIAL VAGINOSIS (IN HOUSE) 2016-03-31 RESULTS Neg Control + Lot # [id number] Exp date 09/2016 CBC 2016-03-31 WBC TNP CULTURE, GENITAL 2016-03-31 Genital Culture, Routine Final report Result 1 Request Problem TNP LIPID PANEL 2016-03-31 Cholesterol, Total 168 100-199 Triglycerides 84 0-149 HDL Cholesterol 56 >39 VLDL Cholesterol Jarrett 17 5-40 LDL Cholesterol Calc 95 0-99 CMP 2016-03-31 Glucose, Serum 120 65-99 BUN 14 6-24 Creatinine, Serum 0.63 0.57-1.00 eGFR If NonAfricn Am 104 >59 eGFR If Africn Am 120 >59 BUN/Creatinine Ratio 22 9-23 Sodium, Serum 145 134-144 Potassium, Serum 4.2 3.5-5.2 Chloride, Serum 104 96-106 Carbon Dioxide, Total 26 18-29 Calcium, Serum 9.5 8.7-10.2 Protein, Total, Serum 7.2 6.0-8.5 Albumin, Serum 4.5 3.5-5.5 Globulin, Total 2.7 1.5-4.5 A/G Ratio 1.7 1.1-2.5 Bilirubin, Total 0.4 0.0-1.2 Alkaline Phosphatase, S 90 39-117 AST (SGOT) 16 0-40 ALT (SGPT) 15 0-32 PAP TEST, HPV IF ASCUS 2016-03-31 DIAGNOSIS: Specimen adequacy: Clinician provided ICD10: Performed by: . . Note: . PDF Report 2016-03-31 PDF Report1 LCLS GC/CHLAM PROBE (STATE) 2016-03-31 CHLAMYDIA negative GC negative PROCEDURES Procedure Date Ordered Related Diagnosis Body Site VENIPUNCT, ROUTINE* Mar 31, 2016 Office Visit, Est Pt., Level 4 Mar 31, 2016 URINALYSIS, AUTO, W/O SCOPE Mar 31, 2016 No Charge Mar 31, 2016 COMPLETE CBC W/AUTO DIFF WBC Mar 31, 2016 COMPREHEN METABOLIC PANEL Mar 31, 2016 SPECIMEN HANDLING Mar 31, 2016 TRICHOMONAS ASSAY W/OPTIC Mar 31, 2016 CULTURE, BACTERIA, OTHER Mar 31, 2016 LIPID PANEL Mar 31, 2016 HAN VAG, DNA, DIR PROBE Mar 31, 2016 IMMUNIZATIONS No Known Immunizations
--- OUTSIDE RECORDS SUMMARY | 2017-02-23 07:48 | XMS REPORT ---
Author Author GERDA STARKS Organization [employer] Address Unknown Phone Unavailable Care Team Providers Care Beauty Shop Manager Name Role Phone GERDA STARKS CP Unavailable [...] Date End Date Status Dosage Proventil HFA [facility] [address]-88 108 (90 Base) MCG/ACT Inhalation every 4 hrs July 28, 2014 2 puffs as needed HydrOXYzine HCl [facility] [address]-26 10 MG Orally twice daily PRN September 23, 2014 1 Trazodone HCl [facility] [address]-91 100 mg Orally PRN October 16, 2014 1 tablet at bedtime as needed Albuterol Sulfate [facility] [address]-73 (2.5 MG/3ML) 0.083% Inhalation every 6 hrs as needed Oct 31, 2014 3 ml Pristiq [facility] [address]-34 50 MG Orally Once a day October 16, 2014 1 tablet Advair Diskus [facility] [address]-05 250-50 MCG/DOSE Feb 19, 2014 inhale 1 puff by Inhalation route in the morning and evening 2 times per day approximately 12 hours apart rinse mouth and spit Results No Known Results Summary Purpose [employer] Submission
--- OUTSIDE RECORDS SUMMARY | 2017-02-23 07:48 | XMS REPORT ---
Author Author GERDA STARKS Organization [employer] Address Unknown Phone Unavailable Care Team Providers Care Sidehand Name Role Phone GERDA STARKS CP Unavailable [...]
--- OUTSIDE RECORDS SUMMARY | 2017-02-23 07:48 | XMS REPORT ---
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 Name Role Phone HOLDEN STUARTNETTE Unavailable PROBLEMS Type Condition ICD9-CM Code UIV99-DW Code Onset Dates Condition Status SNOMED Code Problem Paroxysmal atrial fibrillation I48.0 Active 829602019 Problem Non compliance w medication regimen Z91.14 Active 676702581 Problem Compression fracture T14.8 Active 690028394 Problem Restless legs syndrome G25.81 Active 39298949 Problem Chronic pain syndrome G89.4 Active 276598371 Problem Depression, unspecified depression type F32.9 Active 96972550 Problem Chronic obstructive pulmonary disease with acute exacerbation J44.1 Active 129700573 Problem Routine gynecological examination Z01.419 Active 803815018 Problem Coccygeal pain M53.3 Active 06524621 Problem Insomnia G47.00 Active 374686048 Problem COPD (chronic obstructive pulmonary disease) J44.9 Active 61860118 Problem Anxiety F41.9 Active 05748942 Problem Mood disorder F39 Active 17096876 Problem Nicotine addiction F17.200 Active 20062690 Problem Right ear impacted cerumen H61.21 Active 96678351 Problem Essential hypertension I10 Active 89253294 Problem Hypercholesterolemia E78.0 Active 15633142 Problem Allergic rhinitis J30.9 Active 31486421 Problem Slow transit constipation K59.01 Active 73319179 ALLERGIES Substance Reaction Event Type Date Status Xanax vomiting, wheezing, too stong for pt Drug Allergy Feb, Active Seroquel nausea Drug Allergy Feb, Active Neurontin nausea Drug Allergy Feb, Active Keflex dizziness Drug Allergy Feb, Active Flonase epistaxis Drug Allergy Feb, Active Chantix nausea and vomiting Drug Allergy Feb, Active Amitriptyline HCl nausea Drug Allergy Feb, Active SOCIAL HISTORY No smoking Hx information available PLAN OF CARE Activity Details Follow Up 3 Months, prn Reason: VITAL SIGNS Height 66 in 2016-03-15 Weight 172.2 lbs 2016-03-15 Temperature 99.1 degrees Fahrenheit 2016-03-15 Heart Rate 80 bpm 2016-03-15 Respiratory Rate 20 2016-03-15 Oximetry on room air:97 % 2016-03-15 BMI 27.79 kg/m2 2016-03-15 Blood pressure systolic 150 mmHg 2016-03-15 Blood pressure diastolic 80 mmHg 2016-03-15 MEDICATIONS Medication Instructions Dosage Frequency Start Date End Date Duration Status Pravastatin Sodium 20 mg Orally Once a day 1 tablet 24h Feb, Active Albuterol Sulfate 108 (90 Base) MCG/ACT Inhalation every 4 hrs 1 puff as needed 4h Sep, Active Albuterol Sulfate (2.5 MG/3ML) 0.083% Inhalation every 6 hrs as needed 3 ml Oct, Active Spiriva HandiHaler 18 MCG Inhalation Once a day 1 capsule 24h Nov, Active Debrox 6.5 % Otic Twice a day 5 drops into affected ear 12h Feb, Feb, 4 day(s) Active Blood Glucose Monitor one touch ultra test blood sugar 24h Nov, Active Spiriva HandiHaler 18 MCG as directed Feb, Active Tylenol/Codeine #3 300-30 MG Orally at night as needed 1 tablet Sep, Active Toprol XL 25 MG Orally Once a day 1 tablet 24h Feb, Active RESULTS No Results PROCEDURES Procedure Date Ordered Related Diagnosis Body Site MEASURE BLOOD OXYGEN LEVEL Mar 15, 2016 Office Visit, Est Pt., Level 4 Mar 15, 2016 IMMUNIZATIONS No Known Immunizations
--- OUTSIDE RECORDS SUMMARY | 2017-02-23 07:49 | XMS REPORT ---
Author Author KEDAR SR [facility] [employer] Address Unknown Phone Unavailable Care Team Providers Care Proposal Editor Name Role Phone KEDAR SR CP Unavailable Allergies, Adverse Reactions, Alerts Substance Reaction Event Type Xanax vomiting, wheezing, too stong for pt Drug Allergy Seroquel nausea Drug Allergy Neurontin nausea Drug Allergy Keflex dizziness Drug Allergy Flonase epistaxis Drug Allergy Chantix nausea and vomiting Drug Allergy Amitriptyline HCl nausea Drug Allergy Problems Problem Type Condition Code Onset Dates Condition Status Problem Essential hypertension I10 Active Problem COPD (chronic obstructive pulmonary disease) J44.9 Active Problem Prediabetes R73.09 Active Assessment COPD with acute exacerbation J44.1 Active Problem Right ear impacted cerumen H61.21 Active Problem Anxiety F41.9 Active Problem Neuropathy G62.9 Active Problem Insomnia G47.00 Active Problem Allergic rhinitis J30.9 Active Problem Nicotine addiction F17.200 Active Problem Mood disorder F39 Active Medications Medication Code System Code Instructions Start Date End Date Status Dosage MetFORMIN HCl ER [facility] [address]-93 500 MG Orally Once a day Nov 11, 2014 1 tablet with evening meal Spiriva HandiHaler [facility] [address]-08 18 MCG Inhalation Once a day Dec 01, 2014 1 capsule Atorvastatin Calcium [facility] [address]-80 20 MG Orally Once a day Apr 30, 2015 1 tablet Blood Glucose Monitor [facility] 0 one touch ultra Once a day Dec 01, 2014 test blood sugar Proventil HFA [facility] [address]-98 108 (90 Base) MCG/ACT Inhalation every 4 hrs July 28, 2014 2 puffs as needed Albuterol Sulfate [facility] [address]-56 (2.5 MG/3ML) 0.083% Inhalation every 6 hrs as needed Oct 31, 2014 3 ml Gabapentin [facility] [address]-86 100 MG Orally 3 times a day June 15, 2015 as directed Lisinopril [facility] [address]-79 10 MG Orally Once a day Nov 11, 2014 1 tablet Azithromycin [facility] [address]-76 250 MG Orally Once a day July 14, 2015 July 19, 2015 2 tablets on the first day, then 1 tablet daily for 4 days PredniSONE [facility] [address]-34 10 MG Orally twice a day July 14, 2015 July 19, 2015 1 tablet Advair Diskus [facility] [address]-56 250-50 MCG/DOSE Inhalation Twice a day Feb 19, 2014 1 puff Procedures Procedure Coding System Code Date Office Visit, Est Pt., Level 3 CPT-4 03238 July 14, 2015 MEASURE BLOOD OXYGEN LEVEL CPT-4 37384 July 14, 2015 Vital Signs Date/Time: July 14, 2015 Temperature 98.2 F Weight 173.6 lbs Height 66 in Oximetry 98 % Blood Pressure Diastolic 78 mmHg Blood Pressure Systolic 134 mmHg Cardiac Monitoring Heart Rate 96 bpm BMI 28.02 Index Results No Known Results Summary Purpose [employer] Submission
--- OUTSIDE RECORDS SUMMARY | 2017-02-23 07:49 | XMS REPORT ---
Author Author GERDA STARKS Organization [employer] Address Unknown Phone Unavailable Care Team Providers Care Adjunct Communications Faculty Member Name Role Phone GERDA STARKS CP Unavailable [...]
--- OUTSIDE RECORDS SUMMARY | 2017-02-23 07:53 | XMS REPORT | Continuity of Care Document ---
Author Author [facility] Address Unknown Phone Unavailable Allergies Active Description Code Type Severity Reaction Onset Reported/Identified Relationship to Patient Clinical Status Yes Keflex Drug Allergy N/A N/A 01/13/2010 Yes Keflex Drug Allergy 01/13/2010 Yes Neurontin 100 mg Capsule Drug Allergy N/A N/A 02/02/2012 Yes Neurontin 100 mg Capsule Drug Allergy 02/02/2012 Yes amitriptyline 25 mg tablet Drug Allergy N/A N/A 02/14/2012 Yes amitriptyline 25 mg tablet Drug Allergy 02/14/2012 Yes Celexa 20 mg tablet Drug Allergy N/A N/A 03/27/2012 Yes Celexa 20 mg tablet Drug Allergy 03/27/2012 Yes Chantix 1 mg tablet Drug Allergy N/A N/A 07/25/2012 Yes Seroquel 50 mg tablet Drug Allergy N/A N/A 11/11/2013 Yes Flonase 50 mcg/actuation spray,suspension Drug Allergy N/A N/A 05/01/2014 Yes Xanax 1 mg tablet Drug Allergy N/A N/A 05/30/2014 Yes alprazolam [id number] Drug Allergy Unknown NAUSEA 11/11/2014 Yes cephalexin [id number] Drug Allergy Unknown NAUSEA 11/11/2014 Yes varenicline [id number] Drug Allergy Mild NAUSEA 02/16/2017 Yes amitriptyline [id number] Drug Allergy Unknown NAUSEA 02/16/2017 Yes cephalexin [id number] Drug Allergy Unknown N/A 02/16/2017 Yes fluticasone [id number] Drug Allergy Unknown N/A 02/16/2017 Yes gabapentin [id number] Drug Allergy Unknown NAUSEA 02/16/2017 Yes quetiapine [id number] Drug Allergy Unknown NAUSEA 02/16/2017 Medications Problems Date Dx Coded Attending Type Code Diagnosis Diagnosed By 06/05/2009 NAYLA MCKEON DO 311 DEPRESSIVE DISORDER NOS 06/05/2009 MCKEON DO, NAYLA K 496 COPD 06/05/2009 MCKEON DO, NAYLA K 686.9 UNSPECIFIED LOCAL INFECTION OF SKIN AND SUBCUTANEOUS TISSUE 06/05/2009 MCKEON DO, NAYLA K 311 DEPRESSIVE DISORDER NOS 06/05/2009 MCKEON DO, NAYLA K 496 COPD 06/05/2009 MCKEON DO, NAYLA K 686.9 UNSPECIFIED LOCAL INFECTION OF SKIN AND SUBCUTANEOUS TISSUE 06/05/2009 311 DEPRESSIVE DISORDER NOS 06/05/2009 496 COPD 06/05/2009 686.9 UNSPECIFIED LOCAL INFECTION OF SKIN AND SUBCUTANEOUS TISSUE 06/05/2009 311 DEPRESSIVE DISORDER NOS 06/05/2009 496 COPD 06/05/2009 686.9 UNSPECIFIED LOCAL INFECTION OF SKIN AND SUBCUTANEOUS TISSUE 06/05/2009 311 DEPRESSIVE DISORDER NOS 06/05/2009 496 COPD 06/05/2009 686.9 UNSPECIFIED LOCAL INFECTION OF SKIN AND SUBCUTANEOUS TISSUE 06/05/2009 MCKEON DO NAYLA K 311 DEPRESSIVE DISORDER NOS 06/05/2009 MCKEON DO, NAYLA K 496 COPD 06/05/2009 MCKEON DO, NAYLA K 686.9 UNSPECIFIED LOCAL INFECTION OF SKIN AND SUBCUTANEOUS TISSUE 06/05/2009 311 DEPRESSIVE DISORDER NOS 06/05/2009 496 COPD 06/05/2009 686.9 UNSPECIFIED LOCAL INFECTION OF SKIN AND SUBCUTANEOUS TISSUE 06/05/2009 311 DEPRESSIVE DISORDER NOS 06/05/2009 496 COPD 06/05/2009 686.9 UNSPECIFIED LOCAL INFECTION OF SKIN AND SUBCUTANEOUS TISSUE 06/05/2009 MCKEON DO, NAYLA K 311 DEPRESSIVE DISORDER NOS 06/05/2009 MCKEON DO, NAYLA K 496 COPD 06/05/2009 MCKEON DO, NAYLA K 686.9 UNSPECIFIED LOCAL INFECTION OF SKIN AND SUBCUTANEOUS TISSUE 06/05/2009 MCKEON DO, NAYLA K 311 DEPRESSIVE DISORDER NOS 06/05/2009 MCKEON DO, NAYLA K 496 COPD 06/05/2009 MCKEON DO, NAYLA K 686.9 UNSPECIFIED LOCAL INFECTION OF SKIN AND SUBCUTANEOUS TISSUE 06/05/2009 [employer], BECKIE R 311 DEPRESSIVE DISORDER NOS 06/05/2009 [employer], BECKIE R 496 COPD 06/05/2009 [employer], BECKIE R 686.9 UNSPECIFIED LOCAL INFECTION OF SKIN AND SUBCUTANEOUS TISSUE 06/05/2009 RACQUEL SY APRN S 311 DEPRESSIVE DISORDER NOS 06/05/2009 KER[employer]E [employer], RACQUEL S 496 COPD 06/05/2009 [employer], RACQUEL S 686.9 UNSPECIFIED LOCAL INFECTION OF SKIN AND SUBCUTANEOUS TISSUE 06/05/2009 [employer], BECKIE R 311 DEPRESSIVE DISORDER NOS 06/05/2009 [employer], BECKIE R 496 COPD 06/05/2009 [employer]MENT LE[employer], BECKIE R 686.9 UNSPECIFIED LOCAL INFECTION OF SKIN AND SUBCUTANEOUS TISSUE 06/05/2009 MCKEON DO, NAYLA K 311 DEPRESSIVE DISORDER NOS 06/05/2009 MCKEON DO, NAYLA K 496 COPD 06/05/2009 MCKEON DO, NAYLA K 686.9 UNSPECIFIED LOCAL INFECTION OF SKIN AND SUBCUTANEOUS TISSUE 06/05/2009 [employer], BECKIE R 311 DEPRESSIVE DISORDER NOS 06/05/2009 [employer], BECKIE R 496 COPD 06/05/2009 [employer], BECKIE R 686.9 UNSPECIFIED LOCAL INFECTION OF SKIN AND SUBCUTANEOUS TISSUE 06/05/2009 EVELYN GIRALDO APRNRICIA R 311 DEPRESSIVE DISORDER NOS 06/05/2009 KRISTAL JOHNSONN DAMIAN R 496 COPD 06/05/2009 [employer] DAMIAN R 686.9 UNSPECIFIED LOCAL INFECTION OF SKIN AND SUBCUTANEOUS TISSUE 06/05/2009 [employer], BECKIE R 311 DEPRESSIVE DISORDER NOS 06/05/2009 [employer], BECKIE R 496 COPD 06/05/2009 [employer], BECKIE R 686.9 UNSPECIFIED LOCAL INFECTION OF SKIN AND SUBCUTANEOUS TISSUE 06/05/2009 TIGRE MOLINA PHD 311 DEPRESSIVE DISORDER NOS 06/05/2009 TIRGE MOLINA PHD 49Sonu COPD 06/05/2009 TIGRE MOLINA PHD 686.9 UNSPECIFIED LOCAL INFECTION OF SKIN AND SUBCUTANEOUS TISSUE 06/05/2009 TRACY [facility], CRISTÓBAL R 311 DEPRESSIVE DISORDER NOS 06/05/2009 TRACY [facility], CRISTÓBAL R 496 COPD 06/05/2009 TRACY [facility] CRISTÓBAL R 686.9 UNSPECIFIED LOCAL INFECTION OF SKIN AND SUBCUTANEOUS TISSUE 06/05/2009 JASPREET MARRERO MD 311 DEPRESSIVE DISORDER NOS 06/05/2009 JASPREET MARRERO MD 496 COPD 06/05/2009 JASPREET MARRERO MD 686.9 UNSPECIFIED LOCAL INFECTION OF SKIN AND SUBCUTANEOUS TISSUE 06/05/2009 TIGRE MOLINA PHD 311 DEPRESSIVE DISORDER NOS 06/05/2009 TIGRE MOLINA PHD 496 COPD 06/05/2009 TIGRE MOLINA PHD 686.9 UNSPECIFIED LOCAL INFECTION OF SKIN AND SUBCUTANEOUS TISSUE 06/05/2009 [employer], KIERSTEN 311 DEPRESSIVE DISORDER NOS 06/05/2009 [employer], KIERSTEN 496 COPD 06/05/2009 [employer], KIERSTEN 686.9 UNSPECIFIED LOCAL INFECTION OF SKIN AND SUBCUTANEOUS TISSUE 06/05/2009 [employer], DAMIAN R 311 DEPRESSIVE DISORDER NOS 06/05/2009 GIRALDO [employer], DAMIAN R 496 COPD 06/05/2009 GIRALDO [employer], DAMIAN R 686.9 UNSPECIFIED LOCAL INFECTION OF SKIN AND SUBCUTANEOUS TISSUE 06/05/2009 [employer], KIERSTEN 311 DEPRESSIVE DISORDER NOS 06/05/2009 [employer] LE[employer], KIERSTEN 496 COPD 06/05/2009 [employer] LE[employer], KIERSTEN 686.9 UNSPECIFIED LOCAL INFECTION OF SKIN AND SUBCUTANEOUS TISSUE 06/05/2009 LINDA REYES NAYLA K 311 DEPRESSIVE DISORDER NOS 06/05/2009 LINDA REYES NAYLA K 496 COPD 06/05/2009 LINDA REYES NAYLA K 686.9 UNSPECIFIED LOCAL INFECTION OF SKIN AND SUBCUTANEOUS TISSUE 06/05/2009 TIGRE MOLINA PHD 311 DEPRESSIVE DISORDER NOS 06/05/2009 TIGRE MOLINA PHD 496 COPD 06/05/2009 TIGRE MOLINA PHD 686.9 UNSPECIFIED LOCAL INFECTION OF SKIN AND SUBCUTANEOUS TISSUE 06/05/2009 MCKEON DO NAYLA K 311 DEPRESSIVE DISORDER NOS 06/05/2009 MCKEON DO NAYLA K 496 COPD 06/05/2009 MCKEON DO ANYLA K 686.9 UNSPECIFIED LOCAL INFECTION OF SKIN AND SUBCUTANEOUS TISSUE 06/05/2009 MCKEON DO NAYLA K 311 DEPRESSIVE DISORDER NOS 06/05/2009 MCKEON DO NAYLA K 496 COPD 06/05/2009 MCKEON DO, NAYLA K 686.9 UNSPECIFIED LOCAL INFECTION OF SKIN AND SUBCUTANEOUS TISSUE 06/05/2009 [employer], KIERSTEN 311 DEPRESSIVE DISORDER NOS 06/05/2009 [employer]MENT LE[employer], KIERSTEN 496 COPD 06/05/2009 [employer] DE[employer]MENT LEAD, KIERSTEN 686.9 UNSPECIFIED LOCAL INFECTION OF SKIN AND SUBCUTANEOUS TISSUE 06/05/2009 TIGRE MOLINA PHD 311 DEPRESSIVE DISORDER NOS 06/05/2009 TIGRE MOLINA PHD 496 COPD 06/05/2009 TRACY VALADEZ, [address] 686.9 UNSPECIFIED LOCAL INFECTION OF SKIN AND SUBCUTANEOUS TISSUE 06/05/2009 KIERSTEN CORBIN APRN 311 DEPRESSIVE DISORDER NOS 06/05/2009 [employer] DEPLOYMENT LEADANTIONETTE SpencerKIERSTEN 496 COPD 06/05/2009 [employer]MENT LE[employer], KIERSTEN 686.9 UNSPECIFIED LOCAL INFECTION OF SKIN AND SUBCUTANEOUS TISSUE 06/05/2009 NAYLA MCKEON DO 311 DEPRESSIVE DISORDER NOS 06/05/2009 NAYLA MCKEON DO 496 COPD 06/05/2009 NAYLA MCKEON DO K 686.9 UNSPECIFIED LOCAL INFECTION OF SKIN AND SUBCUTANEOUS TISSUE 06/19/2009 NAYLA MCKEON DO K 300.02 AN GEN ANXIETY 06/19/2009 NAYLA MCKEON DO K 307.81 Headache, Tension 06/19/2009 NAYLA MCKEON DO K 995.3 ALLERGY UNSPECIFIED NOT ELSEWHERE CLASSIFIED 06/19/2009 NAYLA MCKEON DO K 300.02 AN GEN ANXIETY 06/19/2009 NAYLA MCKEON DO K 307.81 Headache, Tension 06/19/2009 NAYLA MCKEON DO K 995.3 ALLERGY UNSPECIFIED NOT ELSEWHERE CLASSIFIED 06/19/2009 300.02 AN GEN ANXIETY 06/19/2009 307.81 Headache, Tension 06/19/2009 995.3 ALLERGY UNSPECIFIED NOT ELSEWHERE CLASSIFIED 06/19/2009 300.02 AN GEN ANXIETY 06/19/2009 307.81 Headache, Tension 06/19/2009 995.3 ALLERGY UNSPECIFIED NOT ELSEWHERE CLASSIFIED 06/19/2009 300.02 AN GEN ANXIETY 06/19/2009 307.81 Headache, Tension 06/19/2009 995.3 ALLERGY UNSPECIFIED NOT ELSEWHERE CLASSIFIED 06/19/2009 NAYLA MCKEON DO K 300.02 AN GEN ANXIETY 06/19/2009 NAYLA MCKEON DO K 307.81 Headache, Tension 06/19/2009 VICKY MCKEON DOA K 995.3 ALLERGY UNSPECIFIED NOT ELSEWHERE CLASSIFIED 06/19/2009 300.02 AN GEN ANXIETY 06/19/2009 307.81 Headache, Tension 06/19/2009 995.3 ALLERGY UNSPECIFIED NOT ELSEWHERE CLASSIFIED 06/19/2009 300.02 AN GEN ANXIETY 06/19/2009 307.81 Headache, Tension 06/19/2009 995.3 ALLERGY UNSPECIFIED NOT ELSEWHERE CLASSIFIED 06/19/2009 NAYLA MCKEON DO K 300.02 AN GEN ANXIETY 06/19/2009 MCKEON DO, NAYLA K 307.81 Headache, Tension 06/19/2009 MCKEON DO, NAYLA K 995.3 ALLERGY UNSPECIFIED NOT ELSEWHERE CLASSIFIED 06/19/2009 MCKEON DO, NAYLA K 300.02 AN GEN ANXIETY 06/19/2009 MCKEON DO, NAYLA K 307.81 Headache, Tension 06/19/2009 MCKEON DO, NAYLA K 995.3 ALLERGY UNSPECIFIED NOT ELSEWHERE CLASSIFIED 06/19/2009 [employer], BECKIE R 300.02 AN GEN ANXIETY 06/19/2009 [employer] DE[employer]MENT LEAD, BECKIE R 307.81 Headache, Tension 06/19/2009 [employer]MENT LE[employer], BECKIE R 995.3 ALLERGY UNSPECIFIED NOT ELSEWHERE CLASSIFIED 06/19/2009 KERRIE JANE RACQUEL S 300.02 AN GEN ANXIETY 06/19/2009 KERRIE JANE RACQUEL S 307.81 Headache, Tension 06/19/2009 [employer] DE[employer]MENT LEAD, RACQUEL S 995.3 ALLERGY UNSPECIFIED NOT ELSEWHERE CLASSIFIED 06/19/2009 RIVERA JOHNSONN BECKIE R 300.02 AN GEN ANXIETY 06/19/2009 [employer] DE[employer]MENT LEAD, BECKIE R 307.81 Headache, Tension 06/19/2009 [employer] DE[employer]MENT LEAD, BECKIE R 995.3 ALLERGY UNSPECIFIED NOT ELSEWHERE CLASSIFIED 06/19/2009 MCKEON DO, NAYLA K 300.02 AN GEN ANXIETY 06/19/2009 MCKEON DO, NAYLA K 307.81 Headache, Tension 06/19/2009 MCKEON DO, NAYLA K 995.3 ALLERGY UNSPECIFIED NOT ELSEWHERE CLASSIFIED 06/19/2009 [employer]MENT [employer], BECKIE R 300.02 AN GEN ANXIETY 06/19/2009 [employer] DEPL[employer]MENT LEAD, BECKIE R 307.81 Headache, Tension 06/19/2009 [employer] DE[employer]MENT LEAD, BECKIE R 995.3 ALLERGY UNSPECIFIED NOT ELSEWHERE CLASSIFIED 06/19/2009 KRISTAL JOHNSONN DAMIAN R 300.02 AN GEN ANXIETY 06/19/2009 KRISTAL JOHNSONN DAMIAN R 307.81 Headache, Tension 06/19/2009 [employer] [employer] DE[employer]MENT LEAD, DAMIAN R 995.3 ALLERGY UNSPECIFIED NOT ELSEWHERE CLASSIFIED 06/19/2009 [employer] DE[employer]MENT LE[employer], BECKIE R 300.02 AN GEN ANXIETY 06/19/2009 [employer] DE[employer]MENT LEAD, BECKIE R 307.81 Headache, Tension 06/19/2009 [employer]MENT LEAD, BECKIE R 995.3 ALLERGY UNSPECIFIED NOT ELSEWHERE CLASSIFIED 06/19/2009 TIGRE MOLINA PHD 300.02 AN GEN ANXIETY 06/19/2009 TIGRE MOLINA PHD 307.81 Headache, Tension 06/19/2009 TIGRE MOLINA PHD 995.3 ALLERGY UNSPECIFIED NOT ELSEWHERE CLASSIFIED 06/19/2009 [facility], CRISTÓBAL R 300.02 AN GEN ANXIETY 06/19/2009 [facility], CRISTÓBAL R 307.81 Headache, Tension 06/19/2009 [facility], CRISTÓBAL R 995.3 ALLERGY UNSPECIFIED NOT ELSEWHERE CLASSIFIED 06/19/2009 JASPREET MARRERO MD 300.02 AN GEN ANXIETY 06/19/2009 JASPREET MARRERO MD 307.81 Headache, Tension 06/19/2009 JASPREET MARRERO MD 995.3 ALLERGY UNSPECIFIED NOT ELSEWHERE CLASSIFIED 06/19/2009 TIGRE MOLINA PHD 300.02 AN GEN ANXIETY 06/19/2009 TIGRE MOLINA PHD 307.81 Headache, Tension 06/19/2009 TIGRE MOLINA PHD 995.3 ALLERGY UNSPECIFIED NOT ELSEWHERE CLASSIFIED 06/19/2009 [employer], KIERSTEN 300.02 AN GEN ANXIETY 06/19/2009 [employer] DE[employer]MENT LEAD, KIERSTEN 307.81 Headache, Tension 06/19/2009 [employer] [employer] DE[employer]MENT LEAD, KIERSTEN 995.3 ALLERGY UNSPECIFIED NOT ELSEWHERE CLASSIFIED 06/19/2009 TINY GIRALDO APRNIA R 300.02 AN GEN ANXIETY 06/19/2009 KRI[address] JANE DAMIAN R 307.81 Headache, Tension 06/19/2009 KRISTAL JANE DAMIAN R 995.3 ALLERGY UNSPECIFIED NOT ELSEWHERE CLASSIFIED 06/19/2009 [employer] DE[employer]MENT LEAD, KIERSTEN 300.02 AN GEN ANXIETY 06/19/2009 [employer] DEPL[employer]MENT LEAD, KIERSTEN 307.81 Headache, Tension 06/19/2009 [employer] DE[employer]MENT LEAD, KIERSTEN 995.3 ALLERGY UNSPECIFIED NOT ELSEWHERE CLASSIFIED 06/19/2009 MCKEON DOVICKYA K 300.02 AN GEN ANXIETY 06/19/2009 MCKEON DO NAYLA K 307.81 Headache, Tension 06/19/2009 MCKEON DO NAYLA K 995.3 ALLERGY UNSPECIFIED NOT ELSEWHERE CLASSIFIED 06/19/2009 TIGRE MOLINA PHD 300.02 AN GEN ANXIETY 06/19/2009 TIGRE MOLINA PHD 307.81 Headache, Tension 06/19/2009 TRACY VALADEZ, [address] 995.3 ALLERGY UNSPECIFIED NOT ELSEWHERE CLASSIFIED 06/19/2009 NAYLA MCKEON DO K 300.02 AN GEN ANXIETY 06/19/2009 VICKY MCKEON DOA K 307.81 Headache, Tension 06/19/2009 LINDA REYES NAYLA K 995.3 ALLERGY UNSPECIFIED NOT ELSEWHERE CLASSIFIED 06/19/2009 NAYLA MCKEON DO K 300.02 AN GEN ANXIETY 06/19/2009 VICKY MCKEON DOA K 307.81 Headache, Tension 06/19/2009 LINDA REYES NAYLA K 995.3 ALLERGY UNSPECIFIED NOT ELSEWHERE CLASSIFIED 06/19/2009 [employer], KIERSTEN 300.02 AN GEN ANXIETY 06/19/2009 [employer] DE[employer]MENT LEAD, KIERSTEN 307.81 Headache, Tension 06/19/2009 [employer] DE[employer]MENT LEAD, KIERSTEN 995.3 ALLERGY UNSPECIFIED NOT ELSEWHERE CLASSIFIED 06/19/2009 TRACY VALADEZ, [address] 300.02 AN GEN ANXIETY 06/19/2009 TIGRE MOLINA PHD 307.81 Headache, Tension 06/19/2009 TRACY VALADEZ, [address] 995.3 ALLERGY UNSPECIFIED NOT ELSEWHERE CLASSIFIED 06/19/2009 [employer] DEPL[employer]MENT LEAD, KIERSTEN 300.02 AN GEN ANXIETY 06/19/2009 [employer] 7 DEPLOYMENT LEAD, KIERSTEN 307.81 Headache, Tension 06/19/2009 [employer] 7 DEPL[employer]MENT LEAD, KIERSTEN 995.3 ALLERGY UNSPECIFIED NOT ELSEWHERE CLASSIFIED 06/19/2009 NAYLA MCKEON DO K 300.02 AN GEN ANXIETY 06/19/2009 VICKY MCKEON DOA K 307.81 Headache, Tension 06/19/2009 NAYLA MCKEON DO K 995.3 ALLERGY UNSPECIFIED NOT ELSEWHERE CLASSIFIED 09/28/2009 Ot 989.5 TOXIC EFFECT VENOM 09/28/2009 Ot E000.8 OTHER EXTERNAL CAUSE STATUS 09/28/2009 Ot E030 UNSPECIFIED ACTIVITY 09/28/2009 Ot E849.0 ACCIDENT IN HOME 09/28/2009 Ot E905.3 HORNET/WASP/BEE STING 12/08/2009 NAYLA MCKEON DO 691.8 Other Atopic Dermatitis And Related Conditions 12/08/2009 NAYLA MCKEON DO 691.8 Other Atopic Dermatitis And Related Conditions 12/08/2009 691.8 Other Atopic Dermatitis And Related Conditions 12/08/2009 691.8 Other Atopic Dermatitis And Related Conditions 12/08/2009 691.8 Other Atopic Dermatitis And Related Conditions 12/08/2009 MCKEON DO NAYLA K 691.8 Other Atopic Dermatitis And Related Conditions 12/08/2009 691.8 Other Atopic Dermatitis And Related Conditions 12/08/2009 691.8 Other Atopic Dermatitis And Related Conditions 12/08/2009 MCKEON DO NAYLA K 691.8 Other Atopic Dermatitis And Related Conditions 12/08/2009 MCKEON DO NAYLA K 691.8 Other Atopic Dermatitis And Related Conditions 12/08/2009 RIVERA JOHNSONN BECKIE R 691.8 Other Atopic Dermatitis And Related Conditions 12/08/2009 KERRIE JANE RACQUEL S 691.8 Other Atopic Dermatitis And Related Conditions 12/08/2009 RIVERA JANE BECKIE R 691.8 Other Atopic Dermatitis And Related Conditions 12/08/2009 LINDA REYES NAYLA K 691.8 Other Atopic Dermatitis And Related Conditions 12/08/2009 RIVERA JANE, BECKIE R 691.8 Other Atopic Dermatitis And Related Conditions 12/08/2009 DAMIAN GIRALDO APRN R 691.8 Other Atopic Dermatitis And Related Conditions 12/08/2009 RIVERA JANE BECKIE R 691.8 Other Atopic Dermatitis And Related Conditions 12/08/2009 TRACY VALADEZ, [address] 691.8 Other Atopic Dermatitis And Related Conditions 12/08/2009 CRISTÓBAL GARCIA 691.8 Other Atopic Dermatitis And Related Conditions 12/08/2009 JASPREET MARRERO MD 691.8 Other Atopic Dermatitis And Related Conditions 12/08/2009 TRACY VALADEZ, [address] 691.8 Other Atopic Dermatitis And Related Conditions 12/08/2009 KIERSTEN CORBIN APRN 691.8 Other Atopic Dermatitis And Related Conditions 12/08/2009 TINY GIRALDO APRNIA R 691.8 Other Atopic Dermatitis And Related Conditions 12/08/2009 KIERSTEN CORBIN APRN 691.8 Other Atopic Dermatitis And Related Conditions 12/08/2009 LINDA REYES NAYLA K 691.8 Other Atopic Dermatitis And Related Conditions 12/08/2009 TRACY VALADEZ, [address] 691.8 Other Atopic Dermatitis And Related Conditions 12/08/2009 LINDA REYES NAYLA K 691.8 Other Atopic Dermatitis And Related Conditions 12/08/2009 LINDA REYES NAYLA K 691.8 Other Atopic Dermatitis And Related Conditions 12/08/2009 KIERSTEN CORBIN APRN 691.8 Other Atopic Dermatitis And Related Conditions 12/08/2009 TRACY VALADEZ, [address] 691.8 Other Atopic Dermatitis And Related Conditions 12/08/2009 KIERSTEN CORBIN APRN 691.8 Other Atopic Dermatitis And Related Conditions 12/08/2009 MCKEON DO, NAYLA K 691.8 Other Atopic Dermatitis And Related Conditions 01/13/2010 MCKEON DO, NAYLA K 110.5 TINEA CORPORIS 01/13/2010 MCKEON DO, NAYLA K 110.5 TINEA CORPORIS 01/13/2010 110.5 TINEA CORPORIS 01/13/2010 110.5 TINEA CORPORIS 01/13/2010 110.5 TINEA CORPORIS 01/13/2010 MCKEON DO, NAYLA K 110.5 TINEA CORPORIS 01/13/2010 110.5 TINEA CORPORIS 01/13/2010 110.5 TINEA CORPORIS 01/13/2010 MCKEON DO, NAYLA K 110.5 TINEA CORPORIS 01/13/2010 MCKEON DO, NAYLA K 110.5 TINEA CORPORIS 01/13/2010 RIVERA JANE, BECKIE R 110.5 TINEA CORPORIS 01/13/2010 [employer], RACQUEL S 110.5 TINEA CORPORIS 01/13/2010 RIVERA JANE, BECKIE R 110.5 TINEA CORPORIS 01/13/2010 MCKEON DO, NAYLA K 110.5 TINEA CORPORIS 01/13/2010 RIVERA JOHNSONN, BECKIE R 110.5 TINEA COR[employer]IS 01/13/2010 DAMIAN GIRALDO APRN R 110.5 TINEA CORPORIS 01/13/2010 RIVERA JANE, BECKIE R 110.5 TINEA CORPORIS 01/13/2010 TIGRE MOLINA PHD 110.5 TINEA CORPORIS 01/13/2010 TRACY [facility], CRISTÓBAL R 110.5 TINEA CORPORIS 01/13/2010 ELIDA BISWAS, JASPREET 110.5 TINEA CORPORIS 01/13/2010 TRACY VALADEZ, [address] 110.5 TINEA CORPORIS 01/13/2010 KIERSTEN CORBIN APRN 110.5 TINEA COR[employer]IS 01/13/2010 TINY GIRALDO APRNIA R 110.5 TINEA [employer]IS 01/13/2010 KIERSTEN CORBIN APRN 110.5 TINEA COR[employer]IS 01/13/2010 MCKEON DO, NAYLA K 110.5 TINEA COR[employer]IS 01/13/2010 TRACY PHD, [address] 110.5 TINEA CORPORIS 01/13/2010 MCKEON DO, NAYLA K 110.5 TINEA CORPORIS 01/13/2010 MCKEON DO, NAYLA K 110.5 TINEA CORPORIS 01/13/2010 [employer], KIERSTEN 110.5 TINEA COR[employer]IS 01/13/2010 TRACY PHD, [address] 110.5 TINEA CORPORIS 01/13/2010 [employer] DE[employer]MENT LEAD, KIERSTEN 110.5 TINEA CORPORIS 01/13/2010 MCKEON DO, NAYLA K 110.5 TINEA CORPORIS 01/22/2010 MCKEON DO, NAYLA K 110.4 TINEA PEDIS 01/22/2010 MCKEON DO, NAYLA K 110.4 TINEA PEDIS 01/22/2010 110.4 TINEA PEDIS 01/22/2010 110.4 TINEA PEDIS 01/22/2010 110.4 TINEA PEDIS 01/22/2010 MCKEON DO, NAYLA K 110.4 TINEA PEDIS 01/22/2010 110.4 TINEA PEDIS 01/22/2010 110.4 TINEA PEDIS 01/22/2010 MCKEON DO, NAYLA K 110.4 TINEA PEDIS 01/22/2010 MCKEON DO, NAYLA K 110.4 TINEA PEDIS 01/22/2010 [employer] DE[employer], BECKIE R 110.4 TINEA PEDIS 01/22/2010 KER[employer]E [employer] DEPL[employer]MENT LEAD, RACQUEL S 110.4 TINEA PEDIS 01/22/2010 [employer] DEPL[employer]MENT LEAD, BECKIE R 110.4 TINEA PEDIS 01/22/2010 MCKEON DO, NAYLA K 110.4 TINEA PEDIS 01/22/2010 [employer] DEPL[employer]MENT LEAD, BECKIE R 110.4 TINEA PEDIS 01/22/2010 K[employer] 7 DEPL[employer]MENT LEAD, DAMIAN R 110.4 TINEA PEDIS 01/22/2010 RIVERA JANE, BECKIE R 110.4 TINEA PEDIS 01/22/2010 TRACY PHD, [address] 110.4 TINEA PEDIS 01/22/2010 TRACY ELLIOTT, CRISTÓBAL R 110.4 TINEA PEDIS 01/22/2010 ELIDA BISWAS, JASPREET 110.4 TINEA PEDIS 01/22/2010 TRACY PHD, [address] 110.4 TINEA PEDIS 01/22/2010 [employer] DE[employer]MENT LE[employer], KIERSTEN 110.4 TINEA PEDIS 01/22/2010 [employer] 7 DEPL[employer]MENT LEAD, DAMIAN R 110.4 TINEA PEDIS 01/22/2010 [employer] DEPL[employer]MENT LEAD, KIERSTEN 110.4 TINEA PEDIS 01/22/2010 MCKEON DO, NAYLA K 110.4 TINEA PEDIS 01/22/2010 TRACY VALADEZ, [address] 110.4 TINEA PEDIS 01/22/2010 MCKEON DO, NAYLA K 110.4 TINEA PEDIS 01/22/2010 MCKEON DO, NAYLA K 110.4 TINEA PEDIS 01/22/2010 [employer] DE[employer]MENT LE[employer], KIERSTEN 110.4 TINEA PEDIS 01/22/2010 TRACY VALADEZ, [address] 110.4 TINEA PEDIS 01/22/2010 [employer], KIERSTEN 110.4 TINEA PEDIS 01/22/2010 MCKEON DO, NAYLA K 110.4 TINEA PEDIS 01/30/2010 Ot 110.5 DERMATOPHYTOSIS OF BODY 01/30/2010 Ot 782.1 NONSPECIF SKIN ERUPT NEC 03/03/2010 MCKEON DO, NAYLA K 465.9 UPPER RESPIRATORY INFECTION 03/03/2010 MCKEON DO, NAYLA K 465.9 UPPER RESPIRATORY INFECTION 03/03/2010 465.9 UPPER RESPIRATORY INFECTION 03/03/2010 465.9 UPPER RESPIRATORY INFECTION 03/03/2010 465.9 UPPER RESPIRATORY INFECTION 03/03/2010 MCKEON DO, NAYLA K 465.9 UPPER RESPIRATORY INFECTION 03/03/2010 465.9 UPPER RESPIRATORY INFECTION 03/03/2010 465.9 UPPER RESPIRATORY INFECTION 03/03/2010 MCKEON DO, NAYLA K 465.9 UPPER RESPIRATORY INFECTION 03/03/2010 MCKEON DO, NAYLA K 465.9 UPPER RESPIRATORY INFECTION 03/03/2010 [employer] [employer], BECKIE R 465.9 UPPER RESPIRATORY INFECTION 03/03/2010 KERRIE WINDOWS 7 DEPLOYMENT LEADRACQUEL 465.9 UPPER RESPIRATORY INFECTION 03/03/2010 [employer] DE[employer]MENT LE[employer], BECKIE R 465.9 UPPER RESPIRATORY INFECTION 03/03/2010 MCKEON DO, NAYLA K 465.9 UPPER RESPIRATORY INFECTION 03/03/2010 [employer] 7 DEPL[employer]MENT LEAD, BECKIE R 465.9 UPPER RESPIRATORY INFECTION 03/03/2010 [address] [employer] 7 DEPLOYMENT LEADEVELYN SpencerDAMIAN R 465.9 UPPER RESPIRATORY INFECTION 03/03/2010 [employer] 7 DE[employer]MENT LEAD, BECKIE R 465.9 UPPER RESPIRATORY INFECTION 03/03/2010 TRACY PHD, TIG[address] 465.9 UPPER RESPIRATORY INFECTION 03/03/2010 [facility], CRISTÓBAL R 465.9 UPPER RESPIRATORY INFECTION 03/03/2010 ELIDA BISWAS, JASPREET 465.9 UPPER RESPIRATORY INFECTION 03/03/2010 TRACY PHD, TIG[address] 465.9 UPPER RESPIRATORY INFECTION 03/03/2010 [employer] LE[employer], KIERSTEN 465.9 UPPER RESPIRATORY INFECTION 03/03/2010 GIR[employer], DAMIAN R 465.9 UPPER RESPIRATORY INFECTION 03/03/2010 [employer] [employer] LE[employer], KIERSTEN 465.9 UPPER RESPIRATORY INFECTION 03/03/2010 MCKEON DO, NAYLA K 465.9 UPPER RESPIRATORY INFECTION 03/03/2010 TRACY PHD, TIG[address] 465.9 UPPER RESPIRATORY INFECTION 03/03/2010 MCKEON DO, NAYLA K 465.9 UPPER RESPIRATORY INFECTION 03/03/2010 MCKEON DO, NAYLA K 465.9 UPPER RESPIRATORY INFECTION 03/03/2010 [employer]MENT LE[employer], KIERSTEN 465.9 UPPER RESPIRATORY INFECTION 03/03/2010 TRACY PHD, TIGRE [address] 465.9 UPPER RESPIRATORY INFECTION 03/03/2010 [employer] DEPL[employer]MENT LEAD, KIERSTEN 465.9 UPPER RESPIRATORY INFECTION 03/03/2010 MCKEON DO, NAYLA K 465.9 UPPER RESPIRATORY INFECTION 03/09/2010 MCKEON DO, NAYLA K 786.2 COUGH 03/09/2010 MCKEON DO, NAYLA K 786.2 COUGH 03/09/2010 786.2 COUGH 03/09/2010 786.2 COUGH 03/09/2010 786.2 COUGH 03/09/2010 MCKEON DO, NAYLA K 786.2 COUGH 03/09/2010 786.2 COUGH 03/09/2010 786.2 COUGH 03/09/2010 MCKEON DO, NAYLA K 786.2 COUGH 03/09/2010 MCKEON DO, NAYLA K 786.2 COUGH 03/09/2010 [employer]MENT LE[employer], BECKIE R 786.2 COUGH 03/09/2010 [employer]MENT [employer], RACQUEL S 786.2 COUGH 03/09/2010 [employer] [employer] 7 DEPL[employer]MENT LE[employer], BECKIE R 786.2 COUGH 03/09/2010 MCKEON DO, NAYLA K 786.2 COUGH 03/09/2010 [employer] LEAD, BECKIE R 786.2 COUGH 03/09/2010 K[employer]MENT LE[employer], DAMIAN R 786.2 COUGH 03/09/2010 [employer] DE[employer]MENT LEAD, BECKIE R 786.2 COUGH 03/09/2010 TRACY PHD, TIGRE Street 786.2 COUGH 03/09/2010 TRACY [facility], CRISTÓBAL R 786.2 COUGH 03/09/2010 JASPREET MARRERO MD 786.2 COUGH 03/09/2010 TRACY PHD, TIGRE Street 786.2 COUGH 03/09/2010 EMERALD [employer] DE[employer]MENT LEAD, KIERSTEN 786.2 COUGH 03/09/2010 [employer] DEPL[employer]MENT LEAD, DAMIAN Saab 786.2 COUGH 03/09/2010 [employer] DEPL[employer]MENT LEAD, KIERSTEN 786.2 COUGH 03/09/2010 MCKEON DO, NAYLA K 786.2 COUGH 03/09/2010 TRACY PHD, TIGRE Street 786.2 COUGH 03/09/2010 MCKEON DO, NAYLA K 786.2 COUGH 03/09/2010 MCKEON DO, NAYLA K 786.2 COUGH 03/09/2010 [employer] DE[employer]MENT LEAD, KIERSTEN 786.2 COUGH 03/09/2010 TRACY PHD, TIGRE Street 786.2 COUGH 03/09/2010 [employer] DEPL[employer]MENT LEAD, KIERSTEN 786.2 COUGH 03/09/2010 MCKEON DO, NAYLA K 786.2 COUGH 04/29/2011 MCKEON DO NAYLA K 382.00 Otitis Media Acute Suppurative 04/29/2011 MCKEON DO, NAYLA K 382.00 Otitis Media Acute Suppurative 04/29/2011 382.00 Otitis Media Acute Suppurative 04/29/2011 382.00 Otitis Media Acute Suppurative 04/29/2011 382.00 Otitis Media Acute Suppurative 04/29/2011 MCKEON DO NAYLA K 382.00 Otitis Media Acute Suppurative 04/29/2011 382.00 Otitis Media Acute Suppurative 04/29/2011 382.00 Otitis Media Acute Suppurative 04/29/2011 MCKEON DO NAYLA K 382.00 Otitis Media Acute Suppurative 04/29/2011 MCKEON DO, NAYLA K 382.00 Otitis Media Acute Suppurative 04/29/2011 BECKIE STAFFORD APRN R 382.00 Otitis Media Acute Suppurative 04/29/2011 RACQUEL SY APRN 382.00 Otitis Media Acute Suppurative 04/29/2011 SARATH STAFFORD APRNINA R 382.00 Otitis Media Acute Suppurative 04/29/2011 MCKEON VICKY REYESA K 382.00 Otitis Media Acute Suppurative 04/29/2011 [employer]MENT LE[employer], BECKIE R 382.00 Otitis Media Acute Suppurative 04/29/2011 TINY GIRALDO APRNIA R 382.00 Otitis Media Acute Suppurative 04/29/2011 SARATH STAFFORD APRNINA R 382.00 Otitis Media Acute Suppurative 04/29/2011 TIGRE MOLINA PHD 382.00 Otitis Media Acute Suppurative 04/29/2011 TRACY [facility], CRISTÓBAL R 382.00 Otitis Media Acute Suppurative 04/29/2011 JASPREET MARRERO MD 382.00 Otitis Media Acute Suppurative 04/29/2011 TIGRE MOLINA PHD 382.00 Otitis Media Acute Suppurative 04/29/2011 EMERALD JANE, KIERSTEN 382.00 Otitis Media Acute Suppurative 04/29/2011 DAMIAN GIRALDO APRN R 382.00 Otitis Media Acute Suppurative 04/29/2011 EMERALD JANE, KIERSTEN 382.00 Otitis Media Acute Suppurative 04/29/2011 NAYLA MCKEON DO K 382.00 Otitis Media Acute Suppurative 04/29/2011 TIGRE MOLINA PHD 382.00 Otitis Media Acute Suppurative 04/29/2011 NAYLA MCKEON DO K 382.00 Otitis Media Acute Suppurative 04/29/2011 VICKY MCKEON DOA K 382.00 Otitis Media Acute Suppurative 04/29/2011 EMERALD JANE, KIERSTEN 382.00 Otitis Media Acute Suppurative 04/29/2011 TIGRE MOLINA PHD 382.00 Otitis Media Acute Suppurative 04/29/2011 MEERALD JANE, KIERSTEN 382.00 Otitis Media Acute Suppurative 04/29/2011 VICKY MCKEON DOA K 382.00 Otitis Media Acute Suppurative 2011 VICKY MCKEON DOA K 782.0 Disturbance Of Skin Sensation 2011 VICKY MCKEON DOA K 782.0 Disturbance Of Skin Sensation 2011 782.0 Disturbance Of Skin Sensation 2011 782.0 Disturbance Of Skin Sensation 2011 782.0 Disturbance Of Skin Sensation 2011 VICKY MCKEON DOA K 782.0 Disturbance Of Skin Sensation 2011 782.0 Disturbance Of Skin Sensation 2011 782.0 Disturbance Of Skin Sensation 2011 MCKEON DO, NAYLA K 782.0 Disturbance Of Skin Sensation 2011 MCKEON DO, NAYLA K 782.0 Disturbance Of Skin Sensation 2011 [employer] DE[employer]MENT LEAD, BECKIE R 782.0 Disturbance Of Skin Sensation 2011 K[employer]E [employer] DEPLOYMENT LEAD, RACQUEL S 782.0 Disturbance Of Skin Sensation 2011 [employer] DEPLOYMENT LEAD, BECKIE R 782.0 Disturbance Of Skin Sensation 2011 MCKEON DO, NAYLA K 782.0 Disturbance Of Skin Sensation 2011 [employer] DEPLOYMENT LEAD, BECKIE R 782.0 Disturbance Of Skin Sensation 2011 [employer] DEPL[employer]MENT LEAD, DAMIAN R 782.0 Disturbance Of Skin Sensation 2011 [employer] DEPLOYMENT LEAD, BECKIE R 782.0 Disturbance Of Skin Sensation 2011 TIGRE MOLINA PHD 782.0 Disturbance Of Skin Sensation 2011 TRACY ELLIOTT, CRISTÓBAL R 782.0 Disturbance Of Skin Sensation 2011 JASPREET MARRERO MD 782.0 Disturbance Of Skin Sensation 2011 TIGRE MOLINA PHD 782.0 Disturbance Of Skin Sensation 2011 [employer] DEPL[employer]MENT LEAD, KIERSTEN 782.0 Disturbance Of Skin Sensation 2011 EVELYN GIRALDO APRNRICIA R 782.0 Disturbance Of Skin Sensation 2011 [employer] DEPLOYMENT LEAD, KIERSTEN 782.0 Disturbance Of Skin Sensation 2011 MCKEON DO, NAYLA K 782.0 Disturbance Of Skin Sensation 2011 TIGRE MOLINA PHD 782.0 Disturbance Of Skin Sensation 2011 MCKEON DO, NAYLA K 782.0 Disturbance Of Skin Sensation 2011 MCKEON DO, NAYLA K 782.0 Disturbance Of Skin Sensation 2011 [employer] DEPLOYMENT LEAD, KIERSTEN 782.0 Disturbance Of Skin Sensation 2011 TIGRE MOLINA PHD 782.0 Disturbance Of Skin Sensation 2011 [employer] DEPLOYMENT LEAD, KIERSTEN 782.0 Disturbance Of Skin Sensation 2011 MCKEON DO, NAYLA K 782.0 Disturbance Of Skin Sensation 08/25/2011 MCKEON DO, NAYLA K 110.4 Dermatophytosis Of Foot 08/25/2011 MCKEON DO, NAYLA K 110.4 Dermatophytosis Of Foot 08/25/2011 110.4 Dermatophytosis Of Foot 08/25/2011 110.4 Dermatophytosis Of Foot 08/25/2011 110.4 Dermatophytosis Of Foot 08/25/2011 MCKEON DO, NAYLA K 110.4 Dermatophytosis Of Foot 08/25/2011 110.4 Dermatophytosis Of Foot 08/25/2011 110.4 Dermatophytosis Of Foot 08/25/2011 MCKOEN DO, NAYLA K 110.4 Dermatophytosis Of Foot 08/25/2011 MCKEON DO, NAYLA K 110.4 Dermatophytosis Of Foot 08/25/2011 RIVERA JANE, BECKIE R 110.4 Dermatophytosis Of Foot 08/25/2011 RACQUEL SY APRN S 110.4 Dermatophytosis Of Foot 08/25/2011 RIVERA JANE, BECKIE R 110.4 Dermatophytosis Of Foot 08/25/2011 MCKEON DO, NAYLA K 110.4 Dermatophytosis Of Foot 08/25/2011 SARATH STAFFORD APRNINA R 110.4 Dermatophytosis Of Foot 08/25/2011 DAMIAN GIRALDO APRN R 110.4 Dermatophytosis Of Foot 08/25/2011 SARATH STAFFORD APRNINA R 110.4 Dermatophytosis Of Foot 08/25/2011 TRACY VALADEZ, TIG[address] 110.4 Dermatophytosis Of Foot 08/25/2011 TRACY ELLIOTT, CRISTÓBAL R 110.4 Dermatophytosis Of Foot 08/25/2011 JASPREET MARRERO MD 110.4 Dermatophytosis Of Foot 08/25/2011 TIGRE MOLINA PHD 110.4 Dermatophytosis Of Foot 08/25/2011 KIERSTEN CORBIN APRN 110.4 Dermatophytosis Of Foot 08/25/2011 DAMIAN GIRALDO APRN R 110.4 Dermatophytosis Of Foot 08/25/2011 KIERSTEN CORBIN APRN 110.4 Dermatophytosis Of Foot 08/25/2011 LINDA DOVICKYA K 110.4 Dermatophytosis Of Foot 08/25/2011 TRACY VALADEZ, [address] 110.4 Dermatophytosis Of Foot 08/25/2011 MCKEON DO NAYLA K 110.4 Dermatophytosis Of Foot 08/25/2011 MCKEON DO, NAYLA K 110.4 Dermatophytosis Of Foot 08/25/2011 EMERALD JANE, KIERSTEN 110.4 Dermatophytosis Of Foot 08/25/2011 TRACY VALADEZ, TIGRE Steret 110.4 Dermatophytosis Of Foot 08/25/2011 EMERALD JOHNSONN, KIERSTEN 110.4 Dermatophytosis Of Foot 08/25/2011 NAYLA MCKEON DO K 110.4 DERMATOPHYTOSIS OF FOOT 09/20/2011 NAYLA MCKEON DO 522.5 Periapical Abscess Without Sinus 09/20/2011 NYALA MCKEON DO 627.8 OTHER SPECIFIED MENOPAUSAL AND POSTMENOPAUSAL DISORDERS 09/20/2011 NAYLA MCKEON DO K 522.5 Periapical Abscess Without Sinus 09/20/2011 NAYLA MCKEON DO 627.8 OTHER SPECIFIED MENOPAUSAL AND POSTMENOPAUSAL DISORDERS 09/20/2011 522.5 Periapical Abscess Without Sinus 09/20/2011 627.8 OTHER SPECIFIED MENOPAUSAL AND POSTMENOPAUSAL DISORDERS 09/20/2011 522.5 Periapical Abscess Without Sinus 09/20/2011 627.8 OTHER SPECIFIED MENOPAUSAL AND POSTMENOPAUSAL DISORDERS 09/20/2011 522.5 Periapical Abscess Without Sinus 09/20/2011 627.8 OTHER SPECIFIED MENOPAUSAL AND POSTMENOPAUSAL DISORDERS 09/20/2011 NAYLA MCKEON DO K 522.5 Periapical Abscess Without Sinus 09/20/2011 NAYLA MCKEON DO K 627.8 OTHER SPECIFIED MENOPAUSAL AND POSTMENOPAUSAL DISORDERS 09/20/2011 522.5 Periapical Abscess Without Sinus 09/20/2011 627.8 OTHER SPECIFIED MENOPAUSAL AND POSTMENOPAUSAL DISORDERS 09/20/2011 522.5 Periapical Abscess Without Sinus 09/20/2011 627.8 OTHER SPECIFIED MENOPAUSAL AND POSTMENOPAUSAL DISORDERS 09/20/2011 NAYLA MCKEON DO K 522.5 Periapical Abscess Without Sinus 09/20/2011 NAYLA MCKEON DO K 627.8 OTHER SPECIFIED MENOPAUSAL AND POSTMENOPAUSAL DISORDERS 09/20/2011 NAYLA MCKEON DO K 522.5 Periapical Abscess Without Sinus 09/20/2011 NAYLA MCKEON DO K 627.8 OTHER SPECIFIED MENOPAUSAL AND POSTMENOPAUSAL DISORDERS 09/20/2011 SARATH STAFFORD APRNINA R 522.5 Periapical Abscess Without Sinus 09/20/2011 [employer] DEPL[employer]MENT LEAD, BECKIE R 627.8 OTHER SPECIFIED MENOPAUSAL AND POSTMENOPAUSAL DISORDERS 09/20/2011 RACQUEL SY APRN 522.5 Periapical Abscess Without Sinus 09/20/2011 RACQUEL SY APRN 627.8 OTHER SPECIFIED MENOPAUSAL AND POSTMENOPAUSAL DISORDERS 09/20/2011 RIVERA JOHNSONNSARATHBECKIE R 522.5 Periapical Abscess Without Sinus 09/20/2011 [employer] DEPLOYMENT LEAD, BECKIE R 627.8 OTHER SPECIFIED MENOPAUSAL AND POSTMENOPAUSAL DISORDERS 09/20/2011 MCKEON DO, NAYLA K 522.5 Periapical Abscess Without Sinus 09/20/2011 MCKEON DO, NAYLA K 627.8 OTHER SPECIFIED MENOPAUSAL AND POSTMENOPAUSAL DISORDERS 09/20/2011 SARATH STAFFORD APRNINA R 522.5 Periapical Abscess Without Sinus 09/20/2011 SARATH STAFFORD APRNINA R 627.8 OTHER SPECIFIED MENOPAUSAL AND POSTMENOPAUSAL DISORDERS 09/20/2011 DAMIAN GIRALDO APRN R 522.5 Periapical Abscess Without Sinus 09/20/2011 DAMIAN GIRALDO APRN R 627.8 OTHER SPECIFIED MENOPAUSAL AND POSTMENOPAUSAL DISORDERS 09/20/2011 BECKIE STAFFORD APRN R 522.5 Periapical Abscess Without Sinus 09/20/2011 SARATH STAFFORD APRNINA R 627.8 OTHER SPECIFIED MENOPAUSAL AND POSTMENOPAUSAL DISORDERS 09/20/2011 TIGRE MOLINA PHD 522.5 Periapical Abscess Without Sinus 09/20/2011 TIGRE MOLINA PHD 627.8 OTHER SPECIFIED MENOPAUSAL AND POSTMENOPAUSAL DISORDERS 09/20/2011 [facility] 522.5 Periapical Abscess Without Sinus 09/20/2011 [facility] 627.8 OTHER SPECIFIED MENOPAUSAL AND POSTMENOPAUSAL DISORDERS 09/20/2011 JASPREET MARRERO MD 522.5 Periapical Abscess Without Sinus 09/20/2011 JASPREET MARRERO MD 627.8 OTHER SPECIFIED MENOPAUSAL AND POSTMENOPAUSAL DISORDERS 09/20/2011 TIGRE MOLINA PHD 522.5 Periapical Abscess Without Sinus 09/20/2011 TIGRE MOLINA PHD 627.8 OTHER SPECIFIED MENOPAUSAL AND POSTMENOPAUSAL DISORDERS 09/20/2011 KIERSTEN CORBIN APRN 522.5 Periapical Abscess Without Sinus 09/20/2011 KIERSTEN CORBIN APRN 627.8 OTHER SPECIFIED MENOPAUSAL AND POSTMENOPAUSAL DISORDERS 09/20/2011 DAMIAN GIRALDO APRN R 522.5 Periapical Abscess Without Sinus 09/20/2011 DAMIAN GIRALDO APRN R 627.8 OTHER SPECIFIED MENOPAUSAL AND POSTMENOPAUSAL DISORDERS 09/20/2011 [employer] DEPL[employer]MENT LEAD, KIERSTEN 522.5 Periapical Abscess Without Sinus 09/20/2011 [employer] 7 DEPLOYMENT LEAD, KIERSTEN 627.8 OTHER SPECIFIED MENOPAUSAL AND POSTMENOPAUSAL DISORDERS 09/20/2011 NAYLA MCKEON DO 522.5 Periapical Abscess Without Sinus 09/20/2011 NAYLA MCKEON DO 627.8 OTHER SPECIFIED MENOPAUSAL AND POSTMENOPAUSAL DISORDERS 09/20/2011 TIGRE MOLINA PHD 522.5 Periapical Abscess Without Sinus 09/20/2011 TIGRE MOLINA PHD 627.8 OTHER SPECIFIED MENOPAUSAL AND POSTMENOPAUSAL DISORDERS 09/20/2011 NAYLA MCKEON DO 522.5 Periapical Abscess Without Sinus 09/20/2011 NAYLA MCKEON DO 627.8 OTHER SPECIFIED MENOPAUSAL AND POSTMENOPAUSAL DISORDERS 09/20/2011 NAYLA MCKEON DO 522.5 Periapical Abscess Without Sinus 09/20/2011 NAYLA MCKEON DO 627.8 OTHER SPECIFIED MENOPAUSAL AND POSTMENOPAUSAL DISORDERS 09/20/2011 [employer] DEPL[employer]MENT LEAD, KIERSTEN 522.5 Periapical Abscess Without Sinus 09/20/2011 [employer] 7 DEPLOYMENT LEAD, KIERSTEN 627.8 OTHER SPECIFIED MENOPAUSAL AND POSTMENOPAUSAL DISORDERS 09/20/2011 TIGRE MOLINA PHD 522.5 Periapical Abscess Without Sinus 09/20/2011 TIGRE MOLINA PHD 627.8 OTHER SPECIFIED MENOPAUSAL AND POSTMENOPAUSAL DISORDERS 09/20/2011 [employer] DEPLOYMENT LEAD, KIERSTEN 522.5 Periapical Abscess Without Sinus 09/20/2011 [employer] 7 DEPLOYMENT LEAD, KIERSTEN 627.8 OTHER SPECIFIED MENOPAUSAL AND POSTMENOPAUSAL DISORDERS 09/20/2011 NAYLA MCKEON DO 522.5 Periapical Abscess Without Sinus 09/20/2011 NAYLA MCKEON DO 627.8 OTHER SPECIFIED MENOPAUSAL AND POSTMENOPAUSAL DISORDERS 11/28/2011 NAYLA MCKEON DO 466.0 Bronchitis, Acute 11/28/2011 NAYLA MCKEON DO V65.42 COUNSELING - SMOKING CESSATION 11/28/2011 NAYLA MCKEON DO 466.0 Bronchitis, Acute 11/28/2011 NAYLA MCKEON DO V65.42 COUNSELING - SMOKING CESSATION 11/28/2011 466.0 Bronchitis, Acute 11/28/2011 V65.42 COUNSELING - SMOKING CESSATION 11/28/2011 466.0 Bronchitis, Acute 11/28/2011 V65.42 COUNSELING - SMOKING CESSATION 11/28/2011 466.0 Bronchitis, Acute 11/28/2011 V65.42 COUNSELING - SMOKING CESSATION 11/28/2011 MCKEON DO, NAYLA K 466.0 Bronchitis, Acute 11/28/2011 MCKEON DO, NAYLA K V65.42 COUNSELING - SMOKING CESSATION 11/28/2011 466.0 Bronchitis, Acute 11/28/2011 V65.42 COUNSELING - SMOKING CESSATION 11/28/2011 466.0 Bronchitis, Acute 11/28/2011 V65.42 COUNSELING - SMOKING CESSATION 11/28/2011 MCKEON DO, NAYLA K 466.0 Bronchitis, Acute 11/28/2011 MCKEON DO, NAYLA K V65.42 COUNSELING - SMOKING CESSATION 11/28/2011 MCKEON DO, NAYLA K 466.0 Bronchitis, Acute 11/28/2011 MCKEON DO, NAYLA K V65.42 COUNSELING - SMOKING CESSATION 11/28/2011 RIVERA JOHNSONN BECKIE R 466.0 Bronchitis, Acute 11/28/2011 [employer] DEPL[employer]MENT LEAD, BECKIE R V65.42 COUNSELING - SMOKING CESSATION 11/28/2011 KERRIE JANE RACQUEL S 466.0 Bronchitis, Acute 11/28/2011 [employer] DE[employer]MENT LEAD RACQUEL S V65.42 COUNSELING - SMOKING CESSATION 11/28/2011 [employer]A [employer] DEPL[employer]MENT LEAD, BECKIE R 466.0 Bronchitis, Acute 11/28/2011 RIVERA JANE BECKIE R V65.42 COUNSELING - SMOKING CESSATION 11/28/2011 MCKEON DO, NAYLA K 466.0 Bronchitis, Acute 11/28/2011 MCKEON DO, NAYLA K V65.42 COUNSELING - SMOKING CESSATION 11/28/2011 RIVERA JOHNSONN BECKIE R 466.0 Bronchitis, Acute 11/28/2011 RIVERA JOHNSONN BECKIE R V65.42 COUNSELING - SMOKING CESSATION 11/28/2011 KRISTAL JANE DAMIAN R 466.0 Bronchitis, Acute 11/28/2011 KRISTAL JANE DAMIAN R V65.42 COUNSELING - SMOKING CESSATION 11/28/2011 RIVERA JANE BECKIE R 466.0 Bronchitis, Acute 11/28/2011 RIVERA JANE BECKIE R V65.42 COUNSELING - SMOKING CESSATION 11/28/2011 TRACY PHD, TIGRE [address] 466.0 Bronchitis, Acute 11/28/2011 TRACY VALADEZ, [address]IGRE Street V65.42 COUNSELING - SMOKING CESSATION 11/28/2011 TRACY [facility], CRISTÓBAL R 466.0 Bronchitis, Acute 11/28/2011 TRACY ELLIOTT, CRISTÓBAL R V65.42 COUNSELING - SMOKING CESSATION 11/28/2011 JASPREET MARRERO MD 466.0 Bronchitis, Acute 11/28/2011 JASPREET MARRERO MD V65.42 COUNSELING - SMOKING CESSATION 11/28/2011 TRACY VALADEZ, [address] 466.0 Bronchitis, Acute 11/28/2011 TRACY VALADEZ, [address]IGRE [address] V65.42 COUNSELING - SMOKING CESSATION 11/28/2011 [employer] DE[employer]MENT LEAD, KIERSTEN 466.0 Bronchitis, Acute 11/28/2011 EM[employer] DEPL[employer]MENT LEAD, KIERSTEN V65.42 COUNSELING - SMOKING CESSATION 11/28/2011 GIRALDO [employer]OWS [employer] DEPL[employer]MENT LEAD, DAMIAN R 466.0 Bronchitis, Acute 11/28/2011 GIRALDO BUCK, DAMIAN R V65.42 COUNSELING - SMOKING CESSATION 11/28/2011 [employer] 7 DEPLOYMENT LEAD, KIERSTEN 466.0 Bronchitis, Acute 11/28/2011 [employer] 7 DEPLOYMENT LEAD, KIERSTEN V65.42 COUNSELING - SMOKING CESSATION 11/28/2011 MCKEON DO NAYLA K 466.0 Bronchitis, Acute 11/28/2011 MCKEON DO NAYLA K V65.42 COUNSELING - SMOKING CESSATION 11/28/2011 TRACY VALADEZ, TGIRE [address] 466.0 Bronchitis, Acute 11/28/2011 TRACY VALADEZ, TIGRE Street V65.42 COUNSELING - SMOKING CESSATION 11/28/2011 MCKEON DO NAYLA K 466.0 Bronchitis, Acute 11/28/2011 MCKEON DO NAYLA K V65.42 COUNSELING - SMOKING CESSATION 11/28/2011 MCKEON DO, NAYLA K 466.0 Bronchitis, Acute 11/28/2011 MCKEON DO NAYLA K V65.42 COUNSELING - SMOKING CESSATION 11/28/2011 [employer] DEPL[employer]MENT LEAD, KIERSTEN 466.0 Bronchitis, Acute 11/28/2011 EM[employer] 7 DEPLOYMENT LEAD, KIERSTEN V65.42 COUNSELING - SMOKING CESSATION 11/28/2011 TRACY VALADEZ, [address] 466.0 Bronchitis, Acute 11/28/2011 TRACY VALADEZ, TIGRE [address] V65.42 COUNSELING - SMOKING CESSATION 11/28/2011 [employer] 7 DEPLOYMENT LEAD, KIERSTEN 466.0 Bronchitis, Acute 11/28/2011 [employer] 7 DEPLOYMENT LEAD, KIERSTEN V65.42 COUNSELING - SMOKING CESSATION 11/28/2011 MCKEON DO NAYLA K 466.0 Bronchitis, Acute 11/28/2011 MCKEON DO NAYLA K V65.42 COUNSELING - SMOKING CESSATION 01/02/2012 NAYLA MCKEON DO 682.9 Cellulitis And Abscess Of Unspecified Sites 01/02/2012 NAYLA MCKEON DO 780.52 INSOMNIA UNSPECIFIED 01/02/2012 NAYLA MCKEON DO V58.69 LONG-TERM (CURRENT) USE OF OTHER MEDICATIONS 01/02/2012 NAYLA MCKEON DO 682.9 Cellulitis And Abscess Of Unspecified Sites 01/02/2012 NAYLA MCKEON DO 780.52 INSOMNIA UNSPECIFIED 01/02/2012 NAYLA MCKEON DO V58.69 LONG-TERM (CURRENT) USE OF OTHER MEDICATIONS 01/02/2012 682.9 Cellulitis And Abscess Of Unspecified Sites 01/02/2012 780.52 INSOMNIA UNSPECIFIED 01/02/2012 V58.69 LONG-TERM (CURRENT) USE OF OTHER MEDICATIONS 01/02/2012 682.9 Cellulitis And Abscess Of Unspecified Sites 01/02/2012 780.52 INSOMNIA UNSPECIFIED 01/02/2012 V58.69 LONG-TERM (CURRENT) USE OF OTHER MEDICATIONS 01/02/2012 682.9 Cellulitis And Abscess Of Unspecified Sites 01/02/2012 780.52 INSOMNIA UNSPECIFIED 01/02/2012 V58.69 LONG-TERM (CURRENT) USE OF OTHER MEDICATIONS 01/02/2012 NAYLA MCKEON DO 682.9 Cellulitis And Abscess Of Unspecified Sites 01/02/2012 NAYLA MCKEON DO 780.52 INSOMNIA UNSPECIFIED 01/02/2012 NAYLA MCKEON DO V58.69 LONG-TERM (CURRENT) USE OF OTHER MEDICATIONS 01/02/2012 682.9 Cellulitis And Abscess Of Unspecified Sites 01/02/2012 780.52 INSOMNIA UNSPECIFIED 01/02/2012 V58.69 LONG-TERM (CURRENT) USE OF OTHER MEDICATIONS 01/02/2012 682.9 Cellulitis And Abscess Of Unspecified Sites 01/02/2012 780.52 INSOMNIA UNSPECIFIED 01/02/2012 V58.69 LONG-TERM (CURRENT) USE OF OTHER MEDICATIONS 01/02/2012 NAYLA MCKEON DO 682.9 Cellulitis And Abscess Of Unspecified Sites 01/02/2012 NAYLA MCKEON DO 780.52 INSOMNIA UNSPECIFIED 01/02/2012 NAYLA MCKEON DO V58.69 LONG-TERM (CURRENT) USE OF OTHER MEDICATIONS 01/02/2012 MCKEON DO, NAYLA K 682.9 Cellulitis And Abscess Of Unspecified Sites 01/02/2012 MCKEON DO NAYLA K 780.52 INSOMNIA UNSPECIFIED 01/02/2012 MCKEON DO NAYLA K V58.69 LONG-TERM (CURRENT) USE OF OTHER MEDICATIONS 01/02/2012 RIVERA JANE BECKIE R 682.9 Cellulitis And Abscess Of Unspecified Sites 01/02/2012 RIVERA JANE BECKIE R 780.52 INSOMNIA UNSPECIFIED 01/02/2012 RIVERA JANE BECKIE R V58.69 LONG-TERM (CURRENT) USE OF OTHER MEDICATIONS 01/02/2012 [employer] DE[employer]MENT LEAD, RACQUEL S 682.9 Cellulitis And Abscess Of Unspecified Sites 01/02/2012 [employer] DEPL[employer]MENT LEAD, RACQUEL S 780.52 INSOMNIA UNSPECIFIED 01/02/2012 [employer] DEPLOYMENT LEAD, RACQUEL S V58.69 LONG-TERM (CURRENT) USE OF OTHER MEDICATIONS 01/02/2012 SARATH STAFFORD APRNINA R 682.9 Cellulitis And Abscess Of Unspecified Sites 01/02/2012 RIVERA JANE BECKIE R 780.52 INSOMNIA UNSPECIFIED 01/02/2012 RIVERA JANE BECKIE R V58.69 LONG-TERM (CURRENT) USE OF OTHER MEDICATIONS 01/02/2012 LINDA REYES NAYLA K 682.9 Cellulitis And Abscess Of Unspecified Sites 01/02/2012 MCKEON DO NAYLA K 780.52 INSOMNIA UNSPECIFIED 01/02/2012 LINDA REYES NAYLA K V58.69 LONG-TERM (CURRENT) USE OF OTHER MEDICATIONS 01/02/2012 RIVERA JANE BECKIE R 682.9 Cellulitis And Abscess Of Unspecified Sites 01/02/2012 RIVERA JANE BECKIE R 780.52 INSOMNIA UNSPECIFIED 01/02/2012 RIVERA JANE BECKIE R V58.69 LONG-TERM (CURRENT) USE OF OTHER MEDICATIONS 01/02/2012 TINY GIRALDO APRNIA R 682.9 Cellulitis And Abscess Of Unspecified Sites 01/02/2012 KRISTAL JANE DAMIAN R 780.52 INSOMNIA UNSPECIFIED 01/02/2012 EVELYN GIRALDO APRNRICIA R V58.69 LONG-TERM (CURRENT) USE OF OTHER MEDICATIONS 01/02/2012 RIVERA JANE BECKIE R 682.9 Cellulitis And Abscess Of Unspecified Sites 01/02/2012 RIVERA JOHNSONN BECKIE R 780.52 INSOMNIA UNSPECIFIED 01/02/2012 [employer] DE[employer]MENT LEAD, BECKIE R V58.69 LONG-TERM (CURRENT) USE OF OTHER MEDICATIONS 01/02/2012 TIGRE MOLINA PHD 682.9 Cellulitis And Abscess Of Unspecified Sites 01/02/2012 TIGRE MOLINA PHD 780.52 INSOMNIA UNSPECIFIED 01/02/2012 TIGRE MOLINA PHD V58.69 LONG-TERM (CURRENT) USE OF OTHER MEDICATIONS 01/02/2012 [facility], CRISTÓBAL R 682.9 Cellulitis And Abscess Of Unspecified Sites 01/02/2012 TRACY [facility], CRISTÓBAL R 780.52 INSOMNIA UNSPECIFIED 01/02/2012 [facility], CRISTÓBAL R V58.69 LONG-TERM (CURRENT) USE OF OTHER MEDICATIONS 01/02/2012 JASPREET MARRERO MD 682.9 Cellulitis And Abscess Of Unspecified Sites 01/02/2012 JASPREET MARRERO MD 780.52 INSOMNIA UNSPECIFIED 01/02/2012 JASPREET MARRERO MD V58.69 LONG-TERM (CURRENT) USE OF OTHER MEDICATIONS 01/02/2012 TIGRE MOLINA PHD 682.9 Cellulitis And Abscess Of Unspecified Sites 01/02/2012 TIGRE MOLINA PHD 780.52 INSOMNIA UNSPECIFIED 01/02/2012 TIGRE MOLINA PHD V58.69 LONG-TERM (CURRENT) USE OF OTHER MEDICATIONS 01/02/2012 [employer], KIERSTEN 682.9 Cellulitis And Abscess Of Unspecified Sites 01/02/2012 [employer], KIERSTEN 780.52 INSOMNIA UNSPECIFIED 01/02/2012 [employer], KIERSTEN V58.69 LONG-TERM (CURRENT) USE OF OTHER MEDICATIONS 01/02/2012 KRISTAL JANE DAMIAN R 682.9 Cellulitis And Abscess Of Unspecified Sites 01/02/2012 [employer], DAMIAN R 780.52 INSOMNIA UNSPECIFIED 01/02/2012 [employer], DAMIAN R V58.69 LONG-TERM (CURRENT) USE OF OTHER MEDICATIONS 01/02/2012 [employer], KIERSTEN 682.9 Cellulitis And Abscess Of Unspecified Sites 01/02/2012 [employer], KIERSTEN 780.52 INSOMNIA UNSPECIFIED 01/02/2012 [employer], KIERSTEN V58.69 LONG-TERM (CURRENT) USE OF OTHER MEDICATIONS 01/02/2012 NAYLA MCKEON DO 682.9 Cellulitis And Abscess Of Unspecified Sites 01/02/2012 NAYLA MCKEON DO K 780.52 INSOMNIA UNSPECIFIED 01/02/2012 LINDA REYES NAYLA K V58.69 LONG-TERM (CURRENT) USE OF OTHER MEDICATIONS 01/02/2012 TIGRE MOLINA PHD 682.9 Cellulitis And Abscess Of Unspecified Sites 01/02/2012 TIGRE MOLINA PHD 780.52 INSOMNIA UNSPECIFIED 01/02/2012 TIGRE MOLINA PHD V58.69 LONG-TERM (CURRENT) USE OF OTHER MEDICATIONS 01/02/2012 VICKY MCKEON DOA K 682.9 Cellulitis And Abscess Of Unspecified Sites 01/02/2012 VICKY MCKEON DOA K 780.52 INSOMNIA UNSPECIFIED 01/02/2012 LINDA REYES NAYLA K V58.69 LONG-TERM (CURRENT) USE OF OTHER MEDICATIONS 01/02/2012 VICKY MCKEON DOA K 682.9 Cellulitis And Abscess Of Unspecified Sites 01/02/2012 VICKY MCKEON DOA K 780.52 INSOMNIA UNSPECIFIED 01/02/2012 VICKY MCKEON DOA K V58.69 LONG-TERM (CURRENT) USE OF OTHER MEDICATIONS 01/02/2012 [employer], KIERSTEN 682.9 Cellulitis And Abscess Of Unspecified Sites 01/02/2012 [employer], KIERSTEN 780.52 INSOMNIA UNSPECIFIED 01/02/2012 [employer], KIERSTEN V58.69 LONG-TERM (CURRENT) USE OF OTHER MEDICATIONS 01/02/2012 TIGRE MOLINA PHD 682.9 Cellulitis And Abscess Of Unspecified Sites 01/02/2012 TIGRE MOLINA PHD 780.52 INSOMNIA UNSPECIFIED 01/02/2012 TIGRE MOLINA PHD V58.69 LONG-TERM (CURRENT) USE OF OTHER MEDICATIONS 01/02/2012 [employer], KIERSTEN 682.9 Cellulitis And Abscess Of Unspecified Sites 01/02/2012 [employer] KIERSTEN 780.52 INSOMNIA UNSPECIFIED 01/02/2012 [employer] KIERSTEN V58.69 LONG-TERM (CURRENT) USE OF OTHER MEDICATIONS 01/02/2012 NAYLA MCKEON DO 682.9 CELLULITIS AND ABSCESS OF UNSPECIFIED SITES 01/02/2012 MCKEON DO, NAYLA K 780.52 INSOMNIA UNSPECIFIED 01/02/2012 MCKEON DO, NAYLA K V58.69 LONG-TERM (CURRENT) USE OF OTHER MEDICATIONS 01/26/2012 MCKEON DO, NAYLA K 465.9 Upper Respiratory Infection 01/26/2012 MCKEON DO, NAYLA K 786.2 Cough 01/26/2012 MCKEON DO, NAYLA K 465.9 Upper Respiratory Infection 01/26/2012 MCKEON DO, NAYLA K 786.2 Cough 01/26/2012 465.9 Upper Respiratory Infection 01/26/2012 786.2 Cough 01/26/2012 465.9 Upper Respiratory Infection 01/26/2012 786.2 Cough 01/26/2012 465.9 Upper Respiratory Infection 01/26/2012 786.2 Cough 01/26/2012 MCKEON DO, NAYLA K 465.9 Upper Respiratory Infection 01/26/2012 MCKEON DO, NAYLA K 786.2 Cough 01/26/2012 465.9 Upper Respiratory Infection 01/26/2012 786.2 Cough 01/26/2012 465.9 Upper Respiratory Infection 01/26/2012 786.2 Cough 01/26/2012 MCKEON DO, NAYLA K 465.9 Upper Respiratory Infection 01/26/2012 MCKEON DO, NAYLA K 786.2 Cough 01/26/2012 MCKEON DO, NAYLA K 465.9 Upper Respiratory Infection 01/26/2012 MCKEON DO, NAYLA K 786.2 Cough 01/26/2012 [employer], BECKIE R 465.9 Upper Respiratory Infection 01/26/2012 [employer], BECKIE R 786.2 Cough 01/26/2012 [employer], RACQUEL S 465.9 Upper Respiratory Infection 01/26/2012 [employer], RACQUEL S 786.2 Cough 01/26/2012 [employer], BECKIE R 465.9 Upper Respiratory Infection 01/26/2012 [employer] DE[employer]MENT LE[employer], BECKIE R 786.2 Cough 01/26/2012 MCKEON DO, NAYLA K 465.9 Upper Respiratory Infection 01/26/2012 MCKEON DO, NAYLA K 786.2 Cough 01/26/2012 [employer], BECKIE R 465.9 Upper Respiratory Infection 01/26/2012 [employer], BECKIE R 786.2 Cough 01/26/2012 KRISTAL JOHNSONNEVELYNDAMIAN R 465.9 Upper Respiratory Infection 01/26/2012 KRISTAL JANE, DAMIAN R 786.2 Cough 01/26/2012 [employer], BECKIE R 465.9 Upper Respiratory Infection 01/26/2012 [employer], BECKIE R 786.2 Cough 01/26/2012 TRACY VALADEZ, [address] 465.9 Upper Respiratory Infection 01/26/2012 TRACY VALADEZ, [address]IG[address] 786.2 Cough 01/26/2012 TRACY [facility], CRISTÓBAL R 465.9 Upper Respiratory Infection 01/26/2012 TRACY [facility], CRISTÓBAL R 786.2 Cough 01/26/2012 JASPREET MARRERO MD 465.9 Upper Respiratory Infection 01/26/2012 JASPREET MARRERO MD 786.2 Cough 01/26/2012 TRACY VALADEZ, [address] 465.9 Upper Respiratory Infection 01/26/2012 TRACY VALADEZ, [address] 786.2 Cough 01/26/2012 [employer], KIERSTEN 465.9 Upper Respiratory Infection 01/26/2012 [employer] DE[employer]MENT [employer], KIERSTEN 786.2 Cough 01/26/2012 KRISTAL JANE, DAMIAN R 465.9 Upper Respiratory Infection 01/26/2012 KRISTAL JANE, DAMIAN R 786.2 Cough 01/26/2012 [employer], KIERSTEN 465.9 Upper Respiratory Infection 01/26/2012 [employer] DE[employer]MENT LE[employer], KIERSTEN 786.2 Cough 01/26/2012 MCKEON DO, NAYLA K 465.9 Upper Respiratory Infection 01/26/2012 MCKEON DO, NAYLA K 786.2 Cough 01/26/2012 TRACY VALADEZ, [address] 465.9 Upper Respiratory Infection 01/26/2012 TRACY VALADEZ, [address] 786.2 Cough 01/26/2012 MCKEON DO, NAYLA K 465.9 Upper Respiratory Infection 01/26/2012 MCKEON DO, NAYLA K 786.2 Cough 01/26/2012 MCKEON DO, NAYLA K 465.9 Upper Respiratory Infection 01/26/2012 MCKEON DO, NAYLA K 786.2 Cough 01/26/2012 [employer], KIERSTEN 465.9 Upper Respiratory Infection 01/26/2012 [employer]MENT [employer], KIERSTEN 786.2 Cough 01/26/2012 TIGRE MOLINA PHD 465.9 Upper Respiratory Infection 01/26/2012 TIGRE MOLINA PHD 786.2 Cough 01/26/2012 [employer], KIERSTEN 465.9 Upper Respiratory Infection 01/26/2012 [employer]MENT [employer], KIERSTEN 786.2 Cough 01/26/2012 MCKEON DO, NAYLA K 465.9 UPPER RESPIRATORY INFECTION 01/26/2012 MCKEON DO, NAYLA K 786.2 COUGH 02/02/2012 MCKEON DO, NAYLA K 784.91 Postnasal Drip 02/02/2012 MCKEON DO, NAYLA K 784.91 Postnasal Drip 02/02/2012 784.91 Postnasal Drip 02/02/2012 784.91 Postnasal Drip 02/02/2012 784.91 Postnasal Drip 02/02/2012 MCKEON DO, NAYLA K 784.91 Postnasal Drip 02/02/2012 784.91 Postnasal Drip 02/02/2012 784.91 Postnasal Drip 02/02/2012 MCKEON DO NAYLA K 784.91 Postnasal Drip 02/02/2012 MCKEON DO, NAYLA K 784.91 Postnasal Drip 02/02/2012 RIVERA JANE, BECKIE R 784.91 Postnasal Drip 02/02/2012 NEERU SY APRNA S 784.91 Postnasal Drip 02/02/2012 [employer], BECKIE R 784.91 Postnasal Drip 02/02/2012 MCKEON DO NAYLA K 784.91 Postnasal Drip 02/02/2012 RIVERA JOHNSONN, BECKIE R 784.91 Postnasal Drip 02/02/2012 EVELYN GIRALDO APRNRICIA R 784.91 Postnasal Drip 02/02/2012 RIVERA JANE, BECKIE R 784.91 Postnasal Drip 02/02/2012 TRACY PHD, [address] 784.91 Postnasal Drip 02/02/2012 TRACY [facility], CRISTÓBAL R 784.91 Postnasal Drip 02/02/2012 ELIDA BISWAS, JASPREET 784.91 Postnasal Drip 02/02/2012 TRACY PHD, [address]IG[address] 784.91 Postnasal Drip 02/02/2012 EMERALD JANE, KIERSTEN 784.91 Postnasal Drip 02/02/2012 KRISTAL JANE, DAMIAN R 784.91 Postnasal Drip 02/02/2012 EMERALD JANE, KIERSTEN 784.91 Postnasal Drip 02/02/2012 MCKEON VICKY REYESA K 784.91 Postnasal Drip 02/02/2012 TRACY PHD, [address]IG[address] 784.91 Postnasal Drip 02/02/2012 MCKEON DO, NAYLA K 784.91 Postnasal Drip 02/02/2012 MCKEON DO, NAYLA K 784.91 Postnasal Drip 02/02/2012 [employer], KIERSTEN 784.91 Postnasal Drip 02/02/2012 TRACY PHD, [address] 784.91 Postnasal Drip 02/02/2012 [employer] DE[employer]MENT LE[employer], KIERSTEN 784.91 Postnasal Drip 02/02/2012 MCKEON DO, NAYLA K 784.91 POSTNASAL DRIP 02/14/2012 MCKEON DO, NAYLA K 780.99 ANHEDONIA 02/14/2012 MCKEON DO, NAYLA K 780.99 ANHEDONIA 02/14/2012 780.99 ANHEDONIA 02/14/2012 780.99 ANHEDONIA 02/14/2012 780.99 ANHEDONIA 02/14/2012 MCKEON DO, NAYLA K 780.99 ANHEDONIA 02/14/2012 780.99 ANHEDONIA 02/14/2012 780.99 ANHEDONIA 02/14/2012 MCKEON DO, NAYLA K 780.99 ANHEDONIA 02/14/2012 MCKEON DO, NAYLA K 780.99 ANHEDONIA 02/14/2012 [employer], BECKIE R 780.99 ANHEDONIA 02/14/2012 RACQUEL SY APRN 780.99 ANHEDONIA 02/14/2012 [employer] DE[employer]MENT LE[employer], BECKIE R 780.99 ANHEDONIA 02/14/2012 MCKEON DO, NAYLA K 780.99 ANHEDONIA 02/14/2012 RIVERA JANE, BECKIE R 780.99 ANHEDONIA 02/14/2012 EVELYN GIRALDO APRNRICIA R 780.99 ANHEDONIA 02/14/2012 RIVERA JANE, BECKIE R 780.99 ANHEDONIA 02/14/2012 TRACY PHD, [address]IG[address] 780.99 ANHEDONIA 02/14/2012 TRACY [facility], CRISTÓBAL R 780.99 ANHEDONIA 02/14/2012 JASPREET MARRERO MD 780.99 ANHEDONIA 02/14/2012 TRACY PHD, [address] 780.99 ANHEDONIA 02/14/2012 [employer] DE[employer]MENT LE[employer], KIERSTEN 780.99 ANHEDONIA 02/14/2012 TINY GIRALDO APRNIA R 780.99 ANHEDONIA 02/14/2012 [employer] DE[employer]MENT LEAD, KIERSTEN 780.99 ANHEDONIA 02/14/2012 MCKEON DO, NAYLA K 780.99 ANHEDONIA 02/14/2012 TRACY PHD, [address] 780.99 ANHEDONIA 02/14/2012 MCKEON DO, NAYLA K 780.99 ANHEDONIA 02/14/2012 MCKEON DO, NAYLA K 780.99 ANHEDONIA 02/14/2012 [employer] 7 DEPLOYMENT LEADKIERSTEN Spencer 780.99 ANHEDONIA 02/14/2012 TRACY VALADEZ, [address] 780.99 ANHEDONIA 02/14/2012 [employer] DE[employer]MENT LEAD, KIERSTEN 780.99 ANHEDONIA 02/14/2012 MCKEON DO, NAYLA K 780.99 ANHEDONIA 03/27/2012 MCKEON DO, NAYLA K 790.29 OTHER ABNORMAL GLUCOSE 03/27/2012 MCKEON DO, NAYLA K 790.29 OTHER ABNORMAL GLUCOSE 03/27/2012 790.29 OTHER ABNORMAL GLUCOSE 03/27/2012 790.29 Other Abnormal Glucose 03/27/2012 790.29 Other Abnormal Glucose 03/27/2012 MCKEON DO, NAYLA K 790.29 Other Abnormal Glucose 03/27/2012 790.29 Other Abnormal Glucose 03/27/2012 790.29 Other Abnormal Glucose 03/27/2012 MCKEON DO, NAYLA K 790.29 Other Abnormal Glucose 03/27/2012 MCKEON DO, NAYLA K 790.29 Other Abnormal Glucose 03/27/2012 RIVERA JOHNSONN, BECKIE R 790.29 Other Abnormal Glucose 03/27/2012 NEERU SY APRNA S 790.29 Other Abnormal Glucose 03/27/2012 [employer], BECKIE R 790.29 Other Abnormal Glucose 03/27/2012 MCKEON DO, NAYLA K 790.29 Other Abnormal Glucose 03/27/2012 [employer] DE[employer]MENT LEAD, BECKIE R 790.29 Other Abnormal Glucose 03/27/2012 EVELYN GIRALDO APRNRICIA R 790.29 Other Abnormal Glucose 03/27/2012 RIVERA JANE, BECKIE R 790.29 Other Abnormal Glucose 03/27/2012 TRACY VALADEZ, [address] 790.29 Other Abnormal Glucose 03/27/2012 TRACY CRISTÓBAL GALLAGHER R 790.29 Other Abnormal Glucose 03/27/2012 JASPREET MARRERO MD 790.29 Other Abnormal Glucose 03/27/2012 TRACY VALADEZ, [address] 790.29 Other Abnormal Glucose 03/27/2012 [employer]MENT LEAD, KIERSTEN 790.29 Other Abnormal Glucose 03/27/2012 DAMIAN GIRALDO APRN R 790.29 Other Abnormal Glucose 03/27/2012 [employer] DE[employer]MENT LEAD, KIERSTEN 790.29 Other Abnormal Glucose 03/27/2012 NAYLA MCKEON DO 790.29 Other Abnormal Glucose 03/27/2012 TRACY VALADEZ, [address] 790.29 Other Abnormal Glucose 03/27/2012 NAYLA MCKEON DO 790.29 Other Abnormal Glucose 03/27/2012 NAYLA MCKEON DO K 790.29 Other Abnormal Glucose 03/27/2012 [employer] DE[employer]MENT LEAD, KIERSTEN 790.29 Other Abnormal Glucose 03/27/2012 TRACY VALADEZ, [address] 790.29 Other Abnormal Glucose 03/27/2012 [employer] DE[employer]MENT LEAD, KIERSTEN 790.29 Other Abnormal Glucose 04/02/2012 NAYLA MCKEON DO V76.10 BREAST CANCER SCREENING 04/02/2012 NAYLA MCKEON DO V76.2 CERVICAL CANCER SCREENING (PAP SMEAR) 04/02/2012 V76.10 BREAST CANCER SCREENING 04/02/2012 V76.2 CERVICAL CANCER SCREENING (PAP SMEAR) 04/02/2012 V76.10 Breast Cancer Screening 04/02/2012 V76.2 Cervical Cancer Screening (pap Smear) 04/02/2012 V76.10 Breast Cancer Screening 04/02/2012 V76.2 Cervical Cancer Screening (pap Smear) 04/02/2012 NAYLA MCKEON DO V76.10 Breast Cancer Screening 04/02/2012 NAYLA MCKEON DO V76.2 Cervical Cancer Screening (pap Smear) 04/02/2012 V76.10 Breast Cancer Screening 04/02/2012 V76.2 Cervical Cancer Screening (pap Smear) 04/02/2012 V76.10 Breast Cancer Screening 04/02/2012 V76.2 Cervical Cancer Screening (pap Smear) 04/02/2012 NAYLA MCKEON DO V76.10 Breast Cancer Screening 04/02/2012 NAYLA MCKEON DO V76.2 Cervical Cancer Screening (pap Smear) 04/02/2012 NAYLA MCKEON DO V76.10 Breast Cancer Screening 04/02/2012 NAYLA MCKEON DO V76.2 Cervical Cancer Screening (pap Smear) 04/02/2012 BECKIE STAFFORD APRN V76.10 Breast Cancer Screening 04/02/2012 [employer], BECKIE R V76.2 Cervical Cancer Screening (pap Smear) 04/02/2012 NEERU SY APRNA S V76.10 Breast Cancer Screening 04/02/2012 NEERU SY APRNA S V76.2 Cervical Cancer Screening (pap Smear) 04/02/2012 [employer], BECKIE R V76.10 Breast Cancer Screening 04/02/2012 RIVERA JOHNSONN, BECKIE R V76.2 Cervical Cancer Screening (pap Smear) 04/02/2012 MCKEON DO, NAYLA K V76.10 Breast Cancer Screening 04/02/2012 MCKEON DO, NAYLA K V76.2 Cervical Cancer Screening (pap Smear) 04/02/2012 RIVERA JOHNSONN, BECKIE R V76.10 Breast Cancer Screening 04/02/2012 RIVERA JOHNOSNN, BECKIE R V76.2 Cervical Cancer Screening (pap Smear) 04/02/2012 KRISTAL JANE, DAMIAN R V76.10 Breast Cancer Screening 04/02/2012 KRISTAL JANE DAMIAN R V76.2 Cervical Cancer Screening (pap Smear ) 04/02/2012 RIVERA JOHNSONN, BECKIE R V76.10 Breast Cancer Screening 04/02/2012 RIVERA JOHNSONN, BECKIE R V76.2 Cervical Cancer Screening (pap Smear) 04/02/2012 TRACY VALADEZ, [address] V76.10 Breast Cancer Screening 04/02/2012 TRACY VALADEZ, [address] V76.2 Cervical Cancer Screening (pap Smear) 04/02/2012 TRACY [facility], CRISTÓBAL R V76.10 Breast Cancer Screening 04/02/2012 TRACY [facility], CRISTÓBAL Saab V76.2 Cervical Cancer Screening (pap Smear) 04/02/2012 JASPREET MARRERO MD V76.10 Breast Cancer Screening 04/02/2012 JASPREET MARRERO MD V76.2 Cervical Cancer Screening (pap Smear) 04/02/2012 TRACY PHD, [address] V76.10 Breast Cancer Screening 04/02/2012 TRACY PHD, [address] V76.2 Cervical Cancer Screening (pap Smear) 04/02/2012 KIERSTEN CORBIN APRN V76.10 Breast Cancer Screening 04/02/2012 EMERALD JANE KIERSTEN V76.2 Cervical Cancer Screening (pap Smear) 04/02/2012 TINY GIRALDO APRNIA R V76.10 Breast Cancer Screening 04/02/2012 DAMIAN GIRALDO APRN V76.2 Cervical Cancer Screening (pap Smear ) 04/02/2012 [employer] LEAD, KIERSTEN V76.10 Breast Cancer Screening 04/02/2012 [employer] DEPL[employer]MENT LEAD, KIERSTEN V76.2 Cervical Cancer Screening (pap Smear) 04/02/2012 VICKY MCKEON DOA K V76.10 Breast Cancer Screening 04/02/2012 VICKY MCKEON DOA K V76.2 Cervical Cancer Screening (pap Smear) 04/02/2012 TRACY VALADEZ, [address] V76.10 Breast Cancer Screening 04/02/2012 TRACY VALADEZ, [address] V76.2 Cervical Cancer Screening (pap Smear) 04/02/2012 VICKY MCKEON DOA K V76.10 Breast Cancer Screening 04/02/2012 VICKY MCKEON DOA K V76.2 Cervical Cancer Screening (pap Smear) 04/02/2012 VICKY MCKEON DOA K V76.10 Breast Cancer Screening 04/02/2012 VICKY MCKEON DOA K V76.2 Cervical Cancer Screening (pap Smear) 04/02/2012 [employer] DE[employer]MENT LEAD, KIERSTEN V76.10 Breast Cancer Screening 04/02/2012 [employer] DEPL[employer]MENT LEAD, KIERSTEN V76.2 Cervical Cancer Screening (pap Smear) 04/02/2012 TRACY PHD, [address] V76.10 Breast Cancer Screening 04/02/2012 TRACY VALADEZ, [address] V76.2 Cervical Cancer Screening (pap Smear) 04/02/2012 [employer] DE[employer]MENT LEAD, KIERSTEN V76.10 Breast Cancer Screening 04/02/2012 EMERALD JANE KIERSTEN V76.2 Cervical Cancer Screening (pap Smear) 04/11/2012 599.0 URINARY TRACT INFECTION 04/11/2012 599.0 Urinary Tract Infection 04/11/2012 599.0 Urinary Tract Infection 04/11/2012 LINDA REYES NAYLA K 599.0 Urinary Tract Infection 04/11/2012 599.0 Urinary Tract Infection 04/11/2012 599.0 Urinary Tract Infection 04/11/2012 MCKEON DO NAYLA K 599.0 Urinary Tract Infection 04/11/2012 MCKEON DO NAYLA K 599.0 Urinary Tract Infection 04/11/2012 BECKIE STAFFORD APRN 599.0 Urinary Tract Infection 04/11/2012 [employer] DE[employer] LE[employer], RACQUEL S 599.0 Urinary Tract Infection 04/11/2012 [employer] DEPL[employer]MENT LEAD, BECKIE R 599.0 Urinary Tract Infection 04/11/2012 MCKEON DO, NAYLA K 599.0 Urinary Tract Infection 04/11/2012 [employer] DEPL[employer]MENT LEAD, BECKIE R 599.0 Urinary Tract Infection 04/11/2012 [employer] DEPL[employer]MENT LEAD, DAMIAN R 599.0 Urinary Tract Infection 04/11/2012 [employer] DEPL[employer]MENT LEAD, BECKIE R 599.0 Urinary Tract Infection 04/11/2012 TRACY VALADEZ, [address] 599.0 Urinary Tract Infection 04/11/2012 TRACY [facility], CRISTÓBAL R 599.0 Urinary Tract Infection 04/11/2012 JASPREET MARRERO MD 599.0 Urinary Tract Infection 04/11/2012 TRACY VALADEZ, [address] 599.0 Urinary Tract Infection 04/11/2012 [employer] DEPL[employer]MENT LEAD, KIERSTEN 599.0 Urinary Tract Infection 04/11/2012 KRISTAL JANE, DAMIAN R 599.0 Urinary Tract Infection 04/11/2012 [employer] 7 DEPLOYMENT LEADANTIONETTE SpencerKIERSTEN 599.0 Urinary Tract Infection 04/11/2012 MCKEON DO, NAYLA K 599.0 Urinary Tract Infection 04/11/2012 TRACY VALADEZ, [address] 599.0 Urinary Tract Infection 04/11/2012 MCKEON DO, NAYLA K 599.0 Urinary Tract Infection 04/11/2012 MCKEON DO, NAYLA K 599.0 Urinary Tract Infection 04/11/2012 KIERSTEN CORBIN APRN 599.0 Urinary Tract Infection 04/11/2012 TRACY VALADEZ, [address] 599.0 Urinary Tract Infection 04/11/2012 [employer] DE[employer] LEAD, KIERSTEN 599.0 Urinary Tract Infection 04/27/2012 626.2 EXCESSIVE OR FREQUENT MENSTRUATION 04/27/2012 626.2 MENORRHAGIA 04/27/2012 MCKEON DO, NAYLA K 626.2 MENORRHAGIA 04/27/2012 626.2 MENORRHAGIA 04/27/2012 626.2 MENORRHAGIA 04/27/2012 MCKEON DO, NAYLA K 626.2 MENORRHAGIA 04/27/2012 MCKEON DO, NAYLA K 626.2 MENORRHAGIA 04/27/2012 [employer] DE[employer]MENT LEAD, BECKIE R 626.2 MENORRHAGIA 04/27/2012 [employer] DEPL[employer]MENT LEAD, RACQUEL S 626.2 MENORRHAGIA 04/27/2012 [employer] DEPL[employer]MENT LEAD, BECKIE R 626.2 MENORRHAGIA 04/27/2012 MCKEON DO, NAYLA K 626.2 MENORRHAGIA 04/27/2012 [employer] DEPL[employer]MENT LEAD, BECKIE R 626.2 MENORRHAGIA 04/27/2012 [employer] DEPL[employer]MENT LEAD, DAMIAN R 626.2 MENORRHAGIA 04/27/2012 [employer] DEPL[employer]MENT LEAD, BECKIE R 626.2 MENORRHAGIA 04/27/2012 TRACY PHD, [address] 626.2 MENORRHAGIA 04/27/2012 TRACY [facility], CRISTÓBAL R 626.2 MENORRHAGIA 04/27/2012 ELIDA BISWAS, JASPREET 626.2 MENORRHAGIA 04/27/2012 TRACY PHD, [address] 626.2 MENORRHAGIA 04/27/2012 [employer] DEPL[employer]MENT LEAD, KIERSTEN 626.2 MENORRHAGIA 04/27/2012 KRISTAL JANE, DAMIAN R 626.2 MENORRHAGIA 04/27/2012 EMERALD JANE, KIERSTEN 626.2 MENORRHAGIA 04/27/2012 MCKEON DO NAYLA K 626.2 MENORRHAGIA 04/27/2012 TRACY PHD, [address] 626.2 MENORRHAGIA 04/27/2012 MCKEON DO, NAYLA K 626.2 MENORRHAGIA 04/27/2012 MCKEON DO, NAYLA K 626.2 MENORRHAGIA 04/27/2012 EMERALD JANE, KIERSTEN 626.2 MENORRHAGIA 04/27/2012 TRACY VALADEZ, [address] 626.2 MENORRHAGIA 04/27/2012 EMERALD JANE, KIERSTEN 626.2 MENORRHAGIA 06/08/2012 464.00 LARYNGITIS 06/08/2012 780.4 lightheadedness 06/08/2012 788.39 STRESS INCONTINENCE 06/08/2012 MCKEON DO, NAYLA K 464.00 LARYNGITIS 06/08/2012 MCKEON DO, NAYLA K 780.4 lightheadedness 06/08/2012 MCKEON DO, NAYLA K 788.39 STRESS INCONTINENCE 06/08/2012 464.00 Laryngitis 06/08/2012 780.4 Lightheadedness 06/08/2012 788.39 STRESS INCONTINENCE 06/08/2012 464.00 Laryngitis 06/08/2012 780.4 Lightheadedness 06/08/2012 788.39 STRESS INCONTINENCE 06/08/2012 MCKEON DO, NAYLA K 464.00 Laryngitis 06/08/2012 MCKEON DO, NAYLA K 780.4 Lightheadedness 06/08/2012 MCKEON DO, NAYLA K 788.39 STRESS INCONTINENCE 06/08/2012 MCKEON DO, NAYLA K 464.00 Laryngitis 06/08/2012 MCKEON DO, NAYLA K 780.4 Lightheadedness 06/08/2012 MCKEON DO, NAYLA K 788.39 STRESS INCONTINENCE 06/08/2012 [employer] DE[employer]MENT LEAD, BECKIE R 464.00 Laryngitis 06/08/2012 [employer] DEPL[employer]MENT LEAD, BECKIE R 780.4 Lightheadedness 06/08/2012 RIVERA JOHNSONN, BECKIE R 788.39 STRESS INCONTINENCE 06/08/2012 KERRIE JANE RACQUEL S 464.00 Laryngitis 06/08/2012 RAH SY APRNNDA S 780.4 Lightheadedness 06/08/2012 RAH SY APRNNDA S 788.39 STRESS INCONTINENCE 06/08/2012 RIVERA JANE, BECKIE R 464.00 Laryngitis 06/08/2012 RIVERA JOHNSONN, BECKIE R 780.4 Lightheadedness 06/08/2012 RIVERA JANE, BECKIE R 788.39 STRESS INCONTINENCE 06/08/2012 MCKEON DO, NAYLA K 464.00 Laryngitis 06/08/2012 MCKEON DO, NAYLA K 780.4 Lightheadedness 06/08/2012 MCKEON DO, NAYLA K 788.39 STRESS INCONTINENCE 06/08/2012 RIVERA JANE, BECKIE R 464.00 Laryngitis 06/08/2012 [employer] DEPL[employer]MENT LEAD, BECKIE R 780.4 Lightheadedness 06/08/2012 [employer] 7 DEPLOYMENT LEAD, BECKIE R 788.39 STRESS INCONTINENCE 06/08/2012 KRISTAL JANE DAMIAN R 464.00 Laryngitis 06/08/2012 KRISTAL JANE, DAMIAN R 780.4 Lightheadedness 06/08/2012 KRISTAL JANE, DAMIAN R 788.39 STRESS INCONTINENCE 06/08/2012 RIVERA JANE, BECKIE R 464.00 Laryngitis 06/08/2012 RIVERA JANE, BECKIE R 780.4 Lightheadedness 06/08/2012 RIVERA JANE BECKIE R 788.39 STRESS INCONTINENCE 06/08/2012 TRACY AVLADEZ, [address] 464.00 Laryngitis 06/08/2012 TRACY VALADEZ, [address] 780.4 Lightheadedness 06/08/2012 TRACY VALADEZ, [address] 788.39 STRESS INCONTINENCE 06/08/2012 TRACY LS, CRISTÓBAL R 464.00 Laryngitis 06/08/2012 TRACY LSCS, CRISTÓBAL R 780.4 Lightheadedness 06/08/2012 TRACY LSCS, CRISTÓBAL R 788.39 STRESS INCONTINENCE 06/08/2012 JASPREET MARRERO MD 464.00 Laryngitis 06/08/2012 JASPREET MARRERO MD 780.4 Lightheadedness 06/08/2012 JASPREET MARRERO MD 788.39 STRESS INCONTINENCE 06/08/2012 TRACY VALADEZ, [address] 464.00 Laryngitis 06/08/2012 TRACY VALADEZ, [address] 780.4 Lightheadedness 06/08/2012 TIGRE MOLINA PHD 788.39 STRESS INCONTINENCE 06/08/2012 [employer] DEPL[employer]MENT LEAD, KIERSTEN 464.00 Laryngitis 06/08/2012 EMERALD JANE, KIERSTEN 780.4 Lightheadedness 06/08/2012 EMERALD JANE, KIERSTEN 788.39 STRESS INCONTINENCE 06/08/2012 EVELYN GIRALDO APRNRICIA R 464.00 Laryngitis 06/08/2012 KRISTAL JANE DAMIAN R 780.4 Lightheadedness 06/08/2012 KRISTAL JANE DAMIAN R 788.39 STRESS INCONTINENCE 06/08/2012 EMERALD JANE, KIERSTEN 464.00 Laryngitis 06/08/2012 EMER[employer]D [employer], KIERSTEN 780.4 Lightheadedness 06/08/2012 EM[address] [employer], KIERSTEN 788.39 STRESS INCONTINENCE 06/08/2012 VICKY MCKEON DOA K 464.00 Laryngitis 06/08/2012 NAYLA MCKEON DO K 780.4 Lightheadedness 06/08/2012 NAYLA MCKEON DO K 788.39 STRESS INCONTINENCE 06/08/2012 TIGRE MOLINA PHD 464.00 Laryngitis 06/08/2012 TIGRE MOLINA PHD 780.4 Lightheadedness 06/08/2012 TIGRE MOLINA PHD 788.39 STRESS INCONTINENCE 06/08/2012 MCKEON DO, NAYLA K 464.00 Laryngitis 06/08/2012 MCKEON NAYLA REYES K 780.4 Lightheadedness 06/08/2012 VICKY MCKEON DOA K 788.39 STRESS INCONTINENCE 06/08/2012 MCKEON NAYLA REYES K 464.00 Laryngitis 06/08/2012 MCKEON VICKY REYESA K 780.4 Lightheadedness 06/08/2012 VICKY CMKEON DOA K 788.39 STRESS INCONTINENCE 06/08/2012 EM[employer], KIERSTEN 464.00 Laryngitis 06/08/2012 EMER[employer]D [employer], KIERSTEN 780.4 Lightheadedness 06/08/2012 EMER[employer]D [employer], KIERSTEN 788.39 STRESS INCONTINENCE 06/08/2012 TRACY PHD, TIGRE [address] 464.00 Laryngitis 06/08/2012 TRACY PHD, TIGRE [address] 780.4 Lightheadedness 06/08/2012 TRACY VALADEZ, TIG[address] 788.39 STRESS INCONTINENCE 06/08/2012 EMER[employer]D [employer], KIERSTEN 464.00 Laryngitis 06/08/2012 EM[address] [employer], KIERSTEN 780.4 Lightheadedness 06/08/2012 EM[address] [employer], KIERSTEN 788.39 STRESS INCONTINENCE 06/22/2012 NAYLA MCKEON DO K 564.00 CONSTIPATION 06/22/2012 NAYLA MCKEON DO K 786.05 SHORTNESS OF BREATH 06/22/2012 NAYLA MCKEON DO K 786.2 COUGH 06/22/2012 NAYLA MCKEON DO K 787.01 NAUSEA WITH VOMITING 06/22/2012 NAYLA MCKEON DO K 796.2 ELEVATED BLOOD PRESSURE READING WITHOUT DIAGNOSIS OF HYPERTENSION 06/22/2012 564.00 CONSTIPATION 06/22/2012 786.05 Shortness Of Breath 06/22/2012 786.2 Cough 06/22/2012 787.01 Nausea With Vomiting 06/22/2012 796.2 ELEVATED BLOOD PRESSURE READING WITHOUT DIAGNOSIS OF HYPERTENSION 06/22/2012 564.00 CONSTIPATION 06/22/2012 786.05 Shortness Of Breath 06/22/2012 786.2 Cough 06/22/2012 787.01 Nausea With Vomiting 06/22/2012 796.2 ELEVATED BLOOD PRESSURE READING WITHOUT DIAGNOSIS OF HYPERTENSION 06/22/2012 NAYLA MCKEON DO K 564.00 CONSTIPATION 06/22/2012 MCKEON DO, NAYLA K 786.05 Shortness Of Breath 06/22/2012 MCKEON DO, NAYLA K 786.2 Cough 06/22/2012 MCKEON DO, NAYLA K 787.01 Nausea With Vomiting 06/22/2012 MCKEON DO, NAYLA K 796.2 ELEVATED BLOOD PRESSURE READING WITHOUT DIAGNOSIS OF HYPERTENSION 06/22/2012 MCKEON DO, NAYLA K 564.00 CONSTIPATION 06/22/2012 MCKEON DO, NAYLA K 786.05 Shortness Of Breath 06/22/2012 MCKEON DO, NAYLA K 786.2 Cough 06/22/2012 MCKEON DO, NAYLA K 787.01 Nausea With Vomiting 06/22/2012 MCKEON DO, NAYLA K 796.2 ELEVATED BLOOD PRESSURE READING WITHOUT DIAGNOSIS OF HYPERTENSION 06/22/2012 RIVERA [employer], BECKIE R 564.00 CONSTIPATION 06/22/2012 RIVERA [employer] LE[employer], BECKIE R 786.05 Shortness Of Breath 06/22/2012 [employer], BECKIE R 786.2 Cough 06/22/2012 R[employer], BECKIE R 787.01 Nausea With Vomiting 06/22/2012 [employer], BECKIE R 796.2 ELEVATED BLOOD PRESSURE READING WITHOUT DIAGNOSIS OF HYPERTENSION 06/22/2012 KERRIE JANE RACQUEL S 564.00 CONSTIPATION 06/22/2012 KERRIE JANE RACQUEL S 786.05 Shortness Of Breath 06/22/2012 KERRIE JANE RACQUEL S 786.2 Cough 06/22/2012 KERRIE JANE RACQUEL S 787.01 Nausea With Vomiting 06/22/2012 RAH SY APRNNDA S 796.2 ELEVATED BLOOD PRESSURE READING WITHOUT DIAGNOSIS OF HYPERTENSION 06/22/2012 [employer], BECKIE R 564.00 CONSTIPATION 06/22/2012 [employer], BECKIE R 786.05 Shortness Of Breath 06/22/2012 [employer], BECKIE R 786.2 Cough 06/22/2012 [employer], BECKIE R 787.01 Nausea With Vomiting 06/22/2012 [employer], BECKIE R 796.2 ELEVATED BLOOD PRESSURE READING WITHOUT DIAGNOSIS OF HYPERTENSION 06/22/2012 MCKEON DO, NAYLA K 564.00 CONSTIPATION 06/22/2012 MCKEON DO, NAYLA K 786.05 Shortness Of Breath 06/22/2012 MCKEON DO, NAYLA K 786.2 Cough 06/22/2012 MCKEON DO, NAYLA K 787.01 Nausea With Vomiting 06/22/2012 MCKEON DO, NAYLA K 796.2 ELEVATED BLOOD PRESSURE READING WITHOUT DIAGNOSIS OF HYPERTENSION 06/22/2012 [employer], BECKIE R 564.00 CONSTIPATION 06/22/2012 [employer]MENT LE[employer], BECKIE R 786.05 Shortness Of Breath 06/22/2012 [employer]MENT LEAD, BECKIE R 786.2 Cough 06/22/2012 [employer] DE[employer]MENT LEAD, BECKIE R 787.01 Nausea With Vomiting 06/22/2012 [employer] DE[employer]MENT LEAD, BECKIE R 796.2 ELEVATED BLOOD PRESSURE READING WITHOUT DIAGNOSIS OF HYPERTENSION 06/22/2012 [employer] DE[employer]MENT LEAD, DAMIAN R 564.00 CONSTIPATION 06/22/2012 KRISTAL JANE DAMIAN R 786.05 Shortness Of Breath 06/22/2012 [employer] DEPL[employer]MENT LEAD DAMIAN R 786.2 Cough 06/22/2012 EVELYN GIRALDO APRNRICIA R 787.01 Nausea With Vomiting 06/22/2012 EVELYN GIRALDO APRNRICIA R 796.2 ELEVATED BLOOD PRESSURE READING WITHOUT DIAGNOSIS OF HYPERTENSION 06/22/2012 RIVERA JANE, BECKIE R 564.00 CONSTIPATION 06/22/2012 RIVERA JOHNSONN, BECKIE R 786.05 Shortness Of Breath 06/22/2012 RIVERA JANE BECKIE R 786.2 Cough 06/22/2012 RIVERA JANE, BECKIE R 787.01 Nausea With Vomiting 06/22/2012 RIVERA JANE, BECKIE R 796.2 ELEVATED BLOOD PRESSURE READING WITHOUT DIAGNOSIS OF HYPERTENSION 06/22/2012 TIGRE MOLINA PHD 564.00 CONSTIPATION 06/22/2012 TIGRE MOLINA PHD 786.05 Shortness Of Breath 06/22/2012 TIGRE MOLINA PHD 786.2 Cough 06/22/2012 TIGRE MOLINA PHD 787.01 Nausea With Vomiting 06/22/2012 TIGRE MOLINA PHD 796.2 ELEVATED BLOOD PRESSURE READING WITHOUT DIAGNOSIS OF HYPERTENSION 06/22/2012 TRACY [facility], CRISTÓBAL R 564.00 CONSTIPATION 06/22/2012 [facility], CRISTÓBAL R 786.05 Shortness Of Breath 06/22/2012 TRACY [facility], CRISTÓBAL R 786.2 Cough 06/22/2012 [facility], CRISTÓBAL R 787.01 Nausea With Vomiting 06/22/2012 [facility], CRISTÓBAL R 796.2 ELEVATED BLOOD PRESSURE READING WITHOUT DIAGNOSIS OF HYPERTENSION 06/22/2012 JASPREET MARRERO MD 564.00 CONSTIPATION 06/22/2012 JASPREET MARRERO MD 786.05 Shortness Of Breath 06/22/2012 ELIDA BISWAS, JASPREET 786.2 Cough 06/22/2012 JASPREET MARRERO MD 787.01 Nausea With Vomiting 06/22/2012 JASPREET MARRERO MD 796.2 ELEVATED BLOOD PRESSURE READING WITHOUT DIAGNOSIS OF HYPERTENSION 06/22/2012 TRACY VALADEZ, [address] 564.00 CONSTIPATION 06/22/2012 TRACY VALADEZ, [address] 786.05 Shortness Of Breath 06/22/2012 TRACY VALADEZ, [address] 786.2 Cough 06/22/2012 TRACY VALADEZ, [address] 787.01 Nausea With Vomiting 06/22/2012 TRACY VALADEZ, [address] 796.2 ELEVATED BLOOD PRESSURE READING WITHOUT DIAGNOSIS OF HYPERTENSION 06/22/2012 [employer] LE[employer], KIERSTEN 564.00 CONSTIPATION 06/22/2012 [employer] DEPLOYMENT LEAD, KIERSTEN 786.05 Shortness Of Breath 06/22/2012 [employer] DE[employer]MENT LEAD, KIERSTEN 786.2 Cough 06/22/2012 [employer] DEPLOYMENT LEAD, KIERSTEN 787.01 Nausea With Vomiting 06/22/2012 [employer] DEPL[employer]MENT LEAD, KIERSTEN 796.2 ELEVATED BLOOD PRESSURE READING WITHOUT DIAGNOSIS OF HYPERTENSION 06/22/2012 GIRALDO BUCK DAMIAN R 564.00 CONSTIPATION 06/22/2012 GIRALDO BUCK DAMIAN R 786.05 Shortness Of Breath 06/22/2012 [employer] DE[employer]MENT LE[employer], DAMIAN R 786.2 Cough 06/22/2012 GIRALDO BUCK DAMIAN R 787.01 Nausea With Vomiting 06/22/2012 [employer] DEPLOYMENT LEAD, DAIMAN R 796.2 ELEVATED BLOOD PRESSURE READING WITHOUT DIAGNOSIS OF HYPERTENSION 06/22/2012 [employer] DEPLOYMENT LEAD, KIERSTEN 564.00 CONSTIPATION 06/22/2012 [employer] 7 DEPLOYMENT LEAD, KIERSTEN 786.05 Shortness Of Breath 06/22/2012 [employer] DEPLOYMENT LEAD, KIERSTEN 786.2 Cough 06/22/2012 [employer] DEPLOYMENT LEAD, KIERSTEN 787.01 Nausea With Vomiting 06/22/2012 [employer] DEPLOYMENT LEAD, KIERSTEN 796.2 ELEVATED BLOOD PRESSURE READING WITHOUT DIAGNOSIS OF HYPERTENSION 06/22/2012 MCKEON DO, NAYLA K 564.00 CONSTIPATION 06/22/2012 MCKEON DO, NAYLA K 786.05 Shortness Of Breath 06/22/2012 MCKEON DO, NAYLA K 786.2 Cough 06/22/2012 MCKEON DO, NAYLA K 787.01 Nausea With Vomiting 06/22/2012 MCKEON DO, NAYLA K 796.2 ELEVATED BLOOD PRESSURE READING WITHOUT DIAGNOSIS OF HYPERTENSION 06/22/2012 TIGRE MOLINA PHD 564.00 CONSTIPATION 06/22/2012 TIGRE MOLINA PHD 786.05 Shortness Of Breath 06/22/2012 TIGRE MOLINA PHD 786.2 Cough 06/22/2012 TIGRE MOLINA PHD 787.01 Nausea With Vomiting 06/22/2012 TIGRE MOLINA PHD 796.2 ELEVATED BLOOD PRESSURE READING WITHOUT DIAGNOSIS OF HYPERTENSION 06/22/2012 MCKEON DO, NAYLA K 564.00 CONSTIPATION 06/22/2012 MCKEON DO, NAYLA K 786.05 Shortness Of Breath 06/22/2012 MCKEON DO, NAYLA K 786.2 Cough 06/22/2012 MCKEON DO, NAYLA K 787.01 Nausea With Vomiting 06/22/2012 MCKEON DO, NAYLA K 796.2 ELEVATED BLOOD PRESSURE READING WITHOUT DIAGNOSIS OF HYPERTENSION 06/22/2012 MCKEON DO, NAYLA K 564.00 CONSTIPATION 06/22/2012 MCKEON DO, NAYLA K 786.05 Shortness Of Breath 06/22/2012 MCKEON DO, NAYLA K 786.2 Cough 06/22/2012 MCKEON DO, NAYLA K 787.01 Nausea With Vomiting 06/22/2012 MCKEON DO, NAYLA K 796.2 ELEVATED BLOOD PRESSURE READING WITHOUT DIAGNOSIS OF HYPERTENSION 06/22/2012 [employer] DEPLOYMENT LEAD, KIERSTEN 564.00 CONSTIPATION 06/22/2012 [employer] 7 DEPLOYMENT LEAD, KIERSTEN 786.05 Shortness Of Breath 06/22/2012 [employer] 7 DEPLOYMENT LEAD, KIERSTEN 786.2 Cough 06/22/2012 [employer] 7 DEPLOYMENT LEAD, KIERSTEN 787.01 Nausea With Vomiting 06/22/2012 [employer] 7 DEPLOYMENT LEAD, KIERSTEN 796.2 ELEVATED BLOOD PRESSURE READING WITHOUT DIAGNOSIS OF HYPERTENSION 06/22/2012 TIGRE MOLINA PHD 564.00 CONSTIPATION 06/22/2012 TIGRE MOLINA PHD 786.05 Shortness Of Breath 06/22/2012 TIGRE MOLINA PHD 786.2 Cough 06/22/2012 TIGRE MOLINA PHD 787.01 Nausea With Vomiting 06/22/2012 TRACY VALADEZ, [address] 796.2 ELEVATED BLOOD PRESSURE READING WITHOUT DIAGNOSIS OF HYPERTENSION 06/22/2012 [employer] 7 DEPLOYMENT LEAD, KIERSTEN 564.00 CONSTIPATION 06/22/2012 [employer] 7 DEPLOYMENT LEAD, KIERSTEN 786.05 Shortness Of Breath 06/22/2012 [employer] DEPLOYMENT LEAD, KIERSTEN 786.2 Cough 06/22/2012 [employer] 7 DEPLOYMENT LEAD, KIERSTEN 787.01 Nausea With Vomiting 06/22/2012 [employer] DEPLOYMENT LEAD, KIERSTEN 796.2 ELEVATED BLOOD PRESSURE READING WITHOUT DIAGNOSIS OF HYPERTENSION 07/06/2012 227.0 BENIGN NEOPLASM OF ADRENAL GLAND 07/06/2012 227.0 BENIGN NEOPLASM OF ADRENAL GLAND 07/06/2012 MCKEON DO NAYLA K 227.0 BENIGN NEOPLASM OF ADRENAL GLAND 07/06/2012 MCKEON DO NAYLA K 227.0 BENIGN NEOPLASM OF ADRENAL GLAND 07/06/2012 SARATH STAFFORD APRNINA R 227.0 BENIGN NEOPLASM OF ADRENAL GLAND 07/06/2012 RACQUEL SY APRN 227.0 BENIGN NEOPLASM OF ADRENAL GLAND 07/06/2012 RIVERA JANE BECKIE R 227.0 BENIGN NEOPLASM OF ADRENAL GLAND 07/06/2012 VICKY MCKEON DOA K 227.0 BENIGN NEOPLASM OF ADRENAL GLAND 07/06/2012 RIVERA JANE BECKIE R 227.0 BENIGN NEOPLASM OF ADRENAL GLAND 07/06/2012 DAMIAN GIRALDO APRN R 227.0 BENIGN NEOPLASM OF ADRENAL GLAND 07/06/2012 RIVERA JANE BECKIE R 227.0 BENIGN NEOPLASM OF ADRENAL GLAND 07/06/2012 TIGRE MOLINA PHD 227.0 BENIGN NEOPLASM OF ADRENAL GLAND 07/06/2012 TRACY ELLIOTT, CRISTÓBAL R 227.0 BENIGN NEOPLASM OF ADRENAL GLAND 07/06/2012 JASPREET MARRERO MD 227.0 BENIGN NEOPLASM OF ADRENAL GLAND 07/06/2012 TIGRE MOLINA PHD 227.0 BENIGN NEOPLASM OF ADRENAL GLAND 07/06/2012 [employer] DEPLOYMENT LEADKIERSTEN Spencer 227.0 BENIGN NEOPLASM OF ADRENAL GLAND 07/06/2012 DAMIAN GIRALDO APRN R 227.0 BENIGN NEOPLASM OF ADRENAL GLAND 07/06/2012 [employer] 7 DEPLOYMENT LEAD, KIERSTEN 227.0 BENIGN NEOPLASM OF ADRENAL GLAND 07/06/2012 VICKY MCKEON DOA K 227.0 BENIGN NEOPLASM OF ADRENAL GLAND 07/06/2012 TIGRE MOLINA PHD 227.0 BENIGN NEOPLASM OF ADRENAL GLAND 07/06/2012 MCKEON DO, NAYLA K 227.0 BENIGN NEOPLASM OF ADRENAL GLAND 07/06/2012 MCKEON DO, NAYLA K 227.0 BENIGN NEOPLASM OF ADRENAL GLAND 07/06/2012 [employer] DEPLOYMENT LEAD, KIERSTEN 227.0 BENIGN NEOPLASM OF ADRENAL GLAND 07/06/2012 TRACY VALADEZ, [address] 227.0 BENIGN NEOPLASM OF ADRENAL GLAND 07/06/2012 [employer] DEPLOYMENT LEAD, KIERSTEN 227.0 BENIGN NEOPLASM OF ADRENAL GLAND 10/02/2012 MCKEON DO, NAYLA K 784.0 HEADACHE 10/02/2012 MCKEON DO, NAYLA K 784.0 HEADACHE 10/02/2012 [employer]MENT LE[employer], BECKIE R 784.0 HEADACHE 10/02/2012 [employer] DEPLOYMENT LEAD, RACQUEL S 784.0 HEADACHE 10/02/2012 [employer] DEPLOYMENT LEAD, BECKIE R 784.0 HEADACHE 10/02/2012 MCKEON DO, NAYLA K 784.0 HEADACHE 10/02/2012 [employer] DEPLOYMENT LEAD, BECKIE R 784.0 HEADACHE 10/02/2012 KRISTAL JANE, DAMIAN R 784.0 HEADACHE 10/02/2012 [employer] DEPL[employer]MENT LEAD, BECKIE R 784.0 HEADACHE 10/02/2012 TRACY VALADEZ, [address] 784.0 HEADACHE 10/02/2012 TRACY [facility], CRISTÓBAL R 784.0 HEADACHE 10/02/2012 JASPREET MARRERO MD 784.0 HEADACHE 10/02/2012 TRACY VALADEZ, [address] 784.0 HEADACHE 10/02/2012 [employer] DEPLOYMENT LEAD, KIERSTEN 784.0 HEADACHE 10/02/[address] KRIST[address] JANE DAMIAN R 784.0 HEADACHE 10/02/2012 [employer] DEPLOYMENT LEAD, KIERSTEN 784.0 HEADACHE 10/02/2012 LINDA REYES, NAYLA K 784.0 HEADACHE 10/02/2012 TRACY VALADEZ, [address] 784.0 HEADACHE 10/02/2012 MCKEON DO, NAYLA K 784.0 HEADACHE 10/02/2012 MCKEON DO, NAYLA K 784.0 HEADACHE 10/02/2012 [employer] 7 DEPLOYMENT LEAD, KIERSTEN 784.0 HEADACHE 10/02/2012 TRACY VALADEZ, [address] 784.0 HEADACHE 10/02/2012 [employer] DEPLOYMENT LEAD, KIERSTEN 784.0 HEADACHE 01/01/2013 MCKEON DO, NAYLA K 692.9 CONTACT DERMATITIS AND OTHER ECZEMA UNSPECIFIED CAUSE 01/01/2013 MCKEON DO, NAYLA K 692.9 CONTACT DERMATITIS AND OTHER ECZEMA UNSPECIFIED CAUSE 01/01/2013 [employer] DEPLOYMENT LEAD, BECKIE R 692.9 CONTACT DERMATITIS AND OTHER ECZEMA UNSPECIFIED CAUSE 01/01/2013 [employer] DEPLOYMENT LEAD, RACQUEL S 692.9 CONTACT DERMATITIS AND OTHER ECZEMA UNSPECIFIED CAUSE 01/01/2013 [employer] DEPLOYMENT LEAD, BECKIE R 692.9 CONTACT DERMATITIS AND OTHER ECZEMA UNSPECIFIED CAUSE 01/01/2013 MCKEON DO, NAYLA K 692.9 CONTACT DERMATITIS AND OTHER ECZEMA UNSPECIFIED CAUSE 01/01/2013 [employer] DEPLOYMENT LEAD, BECKIE R 692.9 CONTACT DERMATITIS AND OTHER ECZEMA UNSPECIFIED CAUSE 01/01/2013 DAMIAN GIRALDO APRN R 692.9 CONTACT DERMATITIS AND OTHER ECZEMA UNSPECIFIED CAUSE 01/01/2013 RIVERA JOHNSONN, BECKIE R 692.9 CONTACT DERMATITIS AND OTHER ECZEMA UNSPECIFIED CAUSE 01/01/2013 TIGRE MOLINA PHD 692.9 CONTACT DERMATITIS AND OTHER ECZEMA UNSPECIFIED CAUSE 01/01/2013 TRACY ELLIOTT, CRISTÓBAL R 692.9 CONTACT DERMATITIS AND OTHER ECZEMA UNSPECIFIED CAUSE 01/01/2013 JASPREET MARRERO MD 692.9 CONTACT DERMATITIS AND OTHER ECZEMA UNSPECIFIED CAUSE 01/01/2013 TIGRE MOLINA PHD 692.9 CONTACT DERMATITIS AND OTHER ECZEMA UNSPECIFIED CAUSE 01/01/2013 KIERSTEN CORBIN APRN 692.9 CONTACT DERMATITIS AND OTHER ECZEMA UNSPECIFIED CAUSE 01/01/2013 DAMIAN GIRALDO APRN R 692.9 CONTACT DERMATITIS AND OTHER ECZEMA UNSPECIFIED CAUSE 01/01/2013 KIERSTEN CORBIN APRN 692.9 CONTACT DERMATITIS AND OTHER ECZEMA UNSPECIFIED CAUSE 01/01/2013 MCKEON DO, NAYLA K 692.9 CONTACT DERMATITIS AND OTHER ECZEMA UNSPECIFIED CAUSE 01/01/2013 TIGRE MOLINA PHD 692.9 CONTACT DERMATITIS AND OTHER ECZEMA UNSPECIFIED CAUSE 01/01/2013 MCKEON DO, NAYLA K 692.9 CONTACT DERMATITIS AND OTHER ECZEMA UNSPECIFIED CAUSE 01/01/2013 MCKEON DO, NAYLA K 692.9 CONTACT DERMATITIS AND OTHER ECZEMA UNSPECIFIED CAUSE 01/01/2013 KIERSTEN CORBIN APRN 692.9 CONTACT DERMATITIS AND OTHER ECZEMA UNSPECIFIED CAUSE 01/01/2013 TIGRE MOLINA PHD 692.9 CONTACT DERMATITIS AND OTHER ECZEMA UNSPECIFIED CAUSE 01/01/2013 EMERALD JANE, KIERSTEN 692.9 CONTACT DERMATITIS AND OTHER ECZEMA UNSPECIFIED CAUSE 01/12/2013 NAYLA MCKEON DO K 462 ACUTE PHARYNGITIS 01/12/2013 [employer] DE[employer]MENT LEAD, BECKIE R 462 ACUTE PHARYNGITIS 01/12/2013 RACQUEL SY APRN S 462 ACUTE PHARYNGITIS 01/12/2013 RIVERA JANE, BECKIE R 462 ACUTE PHARYNGITIS 01/12/2013 NAYLA MCKEON DO K 462 ACUTE PHARYNGITIS 01/12/2013 RIVERA JANE, BECKIE R 462 ACUTE PHARYNGITIS 01/12/2013 DAMIAN GIRALDO APRN R 462 ACUTE PHARYNGITIS 01/12/2013 BECKIE STAFFORD APRN R 462 ACUTE PHARYNGITIS 01/12/2013 TRACY VALADEZ, [address] 462 ACUTE PHARYNGITIS 01/12/2013 TRACY [facility], CRISTÓBAL R 462 ACUTE PHARYNGITIS 01/12/2013 ELIDA BISWAS, JASPREET 462 ACUTE PHARYNGITIS 01/12/2013 TRACY VALADEZ, [address] 462 ACUTE PHARYNGITIS 01/12/2013 [employer] DEPLOYMENT LEAD, KIERSTEN 462 ACUTE PHARYNGITIS 01/12/2013 DAMIAN GIRALDO APRN R 462 ACUTE PHARYNGITIS 01/12/2013 EMERALD JANE, KIERSTEN 462 ACUTE PHARYNGITIS 01/12/2013 NAYLA MCKEON DO K 462 ACUTE PHARYNGITIS 01/12/2013 TRACY VALADEZ, [address] 462 ACUTE PHARYNGITIS 01/12/2013 NAYLA MCKEON DO K 462 ACUTE PHARYNGITIS 01/12/2013 NAYLA MCKEON DO K 462 ACUTE PHARYNGITIS 01/12/2013 [employer] DEPLOYMENT LEAD, KIERSTEN 462 ACUTE PHARYNGITIS 01/12/2013 TRACY VALADEZ, [address] 462 ACUTE PHARYNGITIS 01/12/2013 [employer] 7 DEPLOYMENT LEAD, KIERSTEN 462 ACUTE PHARYNGITIS 03/06/2013 SARATH STAFFORD APRNINA R 786.2 COUGH 03/06/2013 RACQUEL SY APRN S 786.2 COUGH 03/06/2013 SARATH STAFFORD APRNINA R 786.2 COUGH 03/06/2013 MCKEON DO, NAYLA K 786.2 COUGH 03/06/2013 [employer] DE[employer]MENT LEAD, BECKIE R 786.2 COUGH 03/06/2013 EVELYN GIRALDO APRNRICIA R 786.2 COUGH 03/06/2013 [employer] DEPLOYMENT LEAD, BECKIE R 786.2 COUGH 03/06/2013 TRACY VALADEZ, [address] 786.2 COUGH 03/06/2013 [facility], CRISTÓBAL R 786.2 COUGH 03/06/2013 JASPREET MARRERO MD 786.2 COUGH 03/06/2013 TRACY VALADEZ, [address] 786.2 COUGH 03/06/2013 [employer] DEPLOYMENT LEAD, KIERSTEN 786.2 COUGH 03/06/2013 [employer] DEPLOYMENT LEAD, DAMIAN R 786.2 COUGH 03/06/2013 [employer] 7 DEPLOYMENT LEAD, KIERSTEN 786.2 COUGH 03/06/2013 MCKEON DO, NAYLA K 786.2 COUGH 03/06/2013 TRACY VALADEZ, [address] 786.2 COUGH 03/06/2013 MCKEON DO, NAYLA K 786.2 COUGH 03/06/2013 MCKEON DO, NAYLA K 786.2 COUGH 03/06/2013 [employer] DEPLOYMENT LEAD, KIERSTEN 786.2 COUGH 03/06/2013 TRACY VALADEZ, [address] 786.2 COUGH 03/06/2013 [employer] DEPLOYMENT LEAD, KIERSTEN 786.2 COUGH 05/01/2013 SARATH STAFFORD APRNINA R 368.8 OTHER SPECIFIED VISUAL DISTURBANCES 05/01/2013 RACQUEL SY APRN S 368.8 OTHER SPECIFIED VISUAL DISTURBANCES 05/01/2013 SARATH STAFFORD APRNINA R 368.8 OTHER SPECIFIED VISUAL DISTURBANCES 05/01/2013 LINDA REYES, NAYLA K 368.8 OTHER SPECIFIED VISUAL DISTURBANCES 05/01/2013 RIVERA JANE BECKIE R 368.8 OTHER SPECIFIED VISUAL DISTURBANCES 05/01/2013 TINY GIRALDO APRNIA R 368.8 OTHER SPECIFIED VISUAL DISTURBANCES 05/01/2013 SARATH STAFFORD APRNINA R 368.8 OTHER SPECIFIED VISUAL DISTURBANCES 05/01/2013 TIGRE MOLINA PHD 368.8 OTHER SPECIFIED VISUAL DISTURBANCES 05/01/2013 TRACY [facility], CRISTÓBAL R 368.8 OTHER SPECIFIED VISUAL DISTURBANCES 05/01/2013 JASPREET MARRERO MD 368.8 OTHER SPECIFIED VISUAL DISTURBANCES 05/01/2013 TIGRE MOLINA PHD 368.8 OTHER SPECIFIED VISUAL DISTURBANCES 05/01/2013 [employer] DEPLOYMENT LEAD, KIERSTEN 368.8 OTHER SPECIFIED VISUAL DISTURBANCES 05/01/2013 DAMIAN GIRALDO APRN R 368.8 OTHER SPECIFIED VISUAL DISTURBANCES 05/01/2013 [employer] 7 DEPLOYMENT LEAD, KIERSTEN 368.8 OTHER SPECIFIED VISUAL DISTURBANCES 05/01/2013 LINDA REYES NAYLA K 368.8 OTHER SPECIFIED VISUAL DISTURBANCES 05/01/2013 TIGRE MOLINA PHD 368.8 OTHER SPECIFIED VISUAL DISTURBANCES 05/01/2013 MCKEON DO, NAYLA K 368.8 OTHER SPECIFIED VISUAL DISTURBANCES 05/01/2013 MCKEON DO, NAYLA K 368.8 OTHER SPECIFIED VISUAL DISTURBANCES 05/01/2013 [employer] 7 DEPLOYMENT LEAD, KIERSTEN 368.8 OTHER SPECIFIED VISUAL DISTURBANCES 05/01/2013 TIGRE MOLINA PHD 368.8 OTHER SPECIFIED VISUAL DISTURBANCES 05/01/2013 [employer] 7 DEPLOYMENT LEAD, KIERSTEN 368.8 OTHER SPECIFIED VISUAL DISTURBANCES 06/24/2013 KERRIE JANE, RACQUEL S 461.0 SINUSITIS, ACUTE MAXILLARY 06/24/2013 RIVERA JOHNSONN, BECKIE R 461.0 SINUSITIS, ACUTE MAXILLARY 06/24/2013 VICKY MCKEON DOA K 461.0 SINUSITIS, ACUTE MAXILLARY 06/24/2013 RIVERA JOHNSONN, BECKIE R 461.0 SINUSITIS, ACUTE MAXILLARY 06/24/2013 DAMIAN GIRALDO APRN R 461.0 SINUSITIS, ACUTE MAXILLARY 06/24/2013 RIVERA JANE, BECKIE R 461.0 SINUSITIS, ACUTE MAXILLARY 06/24/2013 TRACY VALADEZ, [address] 461.0 SINUSITIS, ACUTE MAXILLARY 06/24/2013 [facility], CRISTÓBAL R 461.0 SINUSITIS, ACUTE MAXILLARY 06/24/2013 ELIDA BISWAS, JASPREET 461.0 SINUSITIS, ACUTE MAXILLARY 06/24/2013 TRACY VALADEZ, [address] 461.0 SINUSITIS, ACUTE MAXILLARY 06/24/2013 EMERALD JANE, KIERSTEN 461.0 SINUSITIS, ACUTE MAXILLARY 06/24/2013 DAMIAN GIRALDO APRN R 461.0 SINUSITIS, ACUTE MAXILLARY 06/24/2013 EMERALD JANE, KIERSTEN 461.0 SINUSITIS, ACUTE MAXILLARY 06/24/2013 VICKY MCKEON DOA K 461.0 SINUSITIS, ACUTE MAXILLARY 06/24/2013 TRACY VALADEZ, [address] 461.0 SINUSITIS, ACUTE MAXILLARY 06/24/2013 MCKEON DO, NAYLA K 461.0 SINUSITIS, ACUTE MAXILLARY 06/24/2013 MCKEON DO, NAYLA K 461.0 SINUSITIS, ACUTE MAXILLARY 06/24/2013 [employer] DEPLOYMENT LEAD, KIERSTEN 461.0 SINUSITIS, ACUTE MAXILLARY 06/24/2013 TRACY VALADEZ, [address] 461.0 SINUSITIS, ACUTE MAXILLARY 06/24/2013 [employer] 7 DEPLOYMENT LEAD, KIERSTEN 461.0 SINUSITIS, ACUTE MAXILLARY 07/11/2013 [employer] DEPL[employer]MENT LEAD, BECKIE R 780.60 FEVER, UNSPECIFIED 07/11/2013 [employer] DEPL[employer]MENT LEAD, BECKIE R 787.01 NAUSEA WITH VOMITING 07/11/2013 [employer] DEPL[employer]MENT LEAD, BECKIE R 789.07 ABDOMINAL PAIN GENERALIZED 07/11/2013 MCKEON DO, NAYLA K 780.60 FEVER, UNSPECIFIED 07/11/2013 MCKEON DO, NAYLA K 787.01 NAUSEA WITH VOMITING 07/11/2013 MCKEON DO, NAYLA K 789.07 ABDOMINAL PAIN GENERALIZED 07/11/2013 RIVERA JOHNSONN, BECKIE R 780.60 FEVER, UNSPECIFIED 07/11/2013 [employer] [employer] 7 DEPLOYMENT LEAD, BECKIE R 787.01 NAUSEA WITH VOMITING 07/11/2013 [employer] [employer] 7 DEPLOYMENT LEAD, BECKIE R 789.07 ABDOMINAL PAIN GENERALIZED 07/11/2013 KRISTAL JANE, DAMIAN R 780.60 FEVER, UNSPECIFIED 07/11/2013 KRISTAL JANE, DAMIAN R 787.01 NAUSEA WITH VOMITING 07/11/2013 KRISTAL JANE, DAMIAN R 789.07 ABDOMINAL PAIN GENERALIZED 07/11/2013 [employer] [employer] 7 DEPLOYMENT LEAD, BECKIE R 780.60 FEVER, UNSPECIFIED 07/11/2013 [employer] [employer] 7 DEPLOYMENT LEAD, BECKIE R 787.01 NAUSEA WITH VOMITING 07/11/2013 [employer] [employer] 7 DEPLOYMENT LEAD, BECKIE R 789.07 ABDOMINAL PAIN GENERALIZED 07/11/2013 TRACY PHD, [address] 780.60 FEVER, UNSPECIFIED 07/11/2013 TRACY PHD, [address] 787.01 NAUSEA WITH VOMITING 07/11/2013 TRACY PHD, [address] 789.07 ABDOMINAL PAIN GENERALIZED 07/11/2013 [facility], CRISTÓBAL R 780.60 FEVER, UNSPECIFIED 07/11/2013 [facility], CRISTÓBAL R 787.01 NAUSEA WITH VOMITING 07/11/2013 [facility], CRISTÓBAL R 789.07 ABDOMINAL PAIN GENERALIZED 07/11/2013 JASPREET MARRERO MD 780.60 FEVER, UNSPECIFIED 07/11/2013 ELIDA BISWAS, JASPREET 787.01 NAUSEA WITH VOMITING 07/11/2013 JASPREET MARRERO MD 789.07 ABDOMINAL PAIN GENERALIZED 07/11/2013 TRACY VALADEZ, [address] 780.60 FEVER, UNSPECIFIED 07/11/2013 TRACY VALADEZ, [address] 787.01 NAUSEA WITH VOMITING 07/11/2013 TRACY VALADEZ, [address] 789.07 ABDOMINAL PAIN GENERALIZED 07/11/2013 [address] [employer] [address] [employer], KIERSTEN 780.60 FEVER, UNSPECIFIED 07/11/2013 [address] [employer], KIERSTEN 787.01 NAUSEA WITH VOMITING 07/11/2013 [address] [employer], KIERSTEN 789.07 ABDOMINAL PAIN GENERALIZED 07/11/2013 EVELYN GIRALDO APRNRICIA R 780.60 FEVER, UNSPECIFIED 07/11/2013 GIR[address] [employer], DAMIAN R 787.01 NAUSEA WITH VOMITING 07/11/2013 [address] [employer], DAMIAN R 789.07 ABDOMINAL PAIN GENERALIZED 07/11/2013 [address] [employer], KIERSTEN 780.60 FEVER, UNSPECIFIED 07/11/2013 [address] [employer] KIERSTEN 787.01 NAUSEA WITH VOMITING 07/11/2013 [address] [employer], KIERSTEN 789.07 ABDOMINAL PAIN GENERALIZED 07/11/2013 MCKEON DO, NAYLA K 780.60 FEVER, UNSPECIFIED 07/11/2013 MCKEON DO, NAYLA K 787.01 NAUSEA WITH VOMITING 07/11/2013 MCKEON DO, NAYLA K 789.07 ABDOMINAL PAIN GENERALIZED 07/11/2013 TRACY VALADEZ, [address] 780.60 FEVER, UNSPECIFIED 07/11/2013 TRACY VALADEZ, [address] 787.01 NAUSEA WITH VOMITING 07/11/2013 TRACY VALADEZ, [address] 789.07 ABDOMINAL PAIN GENERALIZED 07/11/2013 MCKEON DO, NAYLA K 780.60 FEVER, UNSPECIFIED 07/11/2013 MCKEON DO, NAYLA K 787.01 NAUSEA WITH VOMITING 07/11/2013 MCKEON DO, NAYLA K 789.07 ABDOMINAL PAIN GENERALIZED 07/11/2013 MCKEON DO, NAYLA K 780.60 FEVER, UNSPECIFIED 07/11/2013 MCKEON DO, NAYLA K 787.01 NAUSEA WITH VOMITING 07/11/2013 MCKEON DO, NAYLA K 789.07 ABDOMINAL PAIN GENERALIZED 07/11/2013 [address] [employer], KIERSTEN 780.60 FEVER, UNSPECIFIED 07/11/2013 [address] [employer], KIERSTEN 787.01 NAUSEA WITH VOMITING 07/11/2013 [address] [employer], KIERSTEN 789.07 ABDOMINAL PAIN GENERALIZED 07/11/2013 TIGRE MOLINA PHD 780.60 FEVER, UNSPECIFIED 07/11/2013 TIGRE MOLINA PHD 787.01 NAUSEA WITH VOMITING 07/11/2013 TIGRE MOLINA PHD 789.07 ABDOMINAL PAIN GENERALIZED 07/11/2013 [address] [employer] [address], KIERSTEN 780.60 FEVER, UNSPECIFIED 07/11/2013 [address] [employer], KIERSTEN 787.01 NAUSEA WITH VOMITING 07/11/2013 [address] [employer], KIERSTEN 789.07 ABDOMINAL PAIN GENERALIZED 07/29/2013 NAYLA MCKEON DO K 461.9 SINUSITIS ACUTE 07/29/2013 BECKIE STAFFORD APRN R 461.9 SINUSITIS ACUTE 07/29/2013 DAMIAN GIRALDO APRN R 461.9 SINUSITIS ACUTE 07/29/2013 SARATH STAFFORD APRNINA R 461.9 SINUSITIS ACUTE 07/29/2013 TIGRE MOLINA PHD 461.9 SINUSITIS ACUTE 07/29/2013 TRACY [facility], [place] R 461.9 SINUSITIS ACUTE 07/29/2013 JASPREET MARRERO MD 461.9 SINUSITIS ACUTE 07/29/2013 TIGRE MOLINA PHD 461.9 SINUSITIS ACUTE 07/29/2013 [address], KIERSTEN 461.9 SINUSITIS ACUTE 07/29/2013 DAMIAN GIRALDO APRN R 461.9 SINUSITIS ACUTE 07/29/2013 [address] [employer], KIERSTEN 461.9 SINUSITIS ACUTE 07/29/2013 NAYLA MCKEON DO K 461.9 SINUSITIS ACUTE 07/29/2013 TIGRE MOLINA PHD 461.9 SINUSITIS ACUTE 07/29/2013 VICKY MCKEON DOA K 461.9 SINUSITIS ACUTE 07/29/2013 NAYLA MCKEON DO K 461.9 SINUSITIS ACUTE 07/29/2013 [address], KIERSTEN 461.9 SINUSITIS ACUTE 07/29/2013 TIGRE MOLINA PHD 461.9 SINUSITIS ACUTE 07/29/2013 [employer] [employer], KIERSTEN 461.9 SINUSITIS ACUTE 09/17/2013 [place] [employer], BECKIE R 787.91 DIARRHEA 09/17/2013 TINY GIRALDO APRNIA R 787.91 DIARRHEA 09/17/2013 RIVERA JANE, BECKIE R 787.91 DIARRHEA 09/17/2013 TRACY VALADEZ, [address] 787.91 DIARRHEA 09/17/2013 [facility], [place] 787.91 DIARRHEA 09/17/2013 JASPREET MARRERO MD 787.91 DIARRHEA 09/17/2013 TRACY , [address] 787.91 DIARRHEA 09/17/2013 [employer] [employer], KIERSTEN 787.91 DIARRHEA 09/17/2013 TINY GIRALDO APRNIA R 787.91 DIARRHEA 09/17/2013 [address] [employer], KIERSTEN 787.91 DIARRHEA 09/17/2013 MCKEON DO, NAYLA K 787.91 DIARRHEA 09/17/2013 TRACY VALADEZ, [address] 787.91 DIARRHEA 09/17/2013 MCKEON DO, NAYLA K 787.91 DIARRHEA 09/17/2013 MCKEON DO, NAYLA K 787.91 DIARRHEA 09/17/2013 [address] [employer], KIERSTEN 787.91 DIARRHEA 09/17/2013 TRACY VALADEZ, [address] 787.91 DIARRHEA 09/17/2013 [address], KIERSTEN 787.91 DIARRHEA 11/11/2013 DAMIAN GIRALDO APRN R 372.30 CONJUNCTIVITIS UNSPECIFIED 11/11/2013 BECKIE STAFFORD APRN R 372.30 CONJUNCTIVITIS UNSPECIFIED 11/11/2013 TIGRE MOLINA PHD 372.30 CONJUNCTIVITIS UNSPECIFIED 11/11/2013 [facility], [place] 372.30 CONJUNCTIVITIS UNSPECIFIED 11/11/2013 JASPREET MARRERO MD 372.30 CONJUNCTIVITIS UNSPECIFIED 11/11/2013 TIGRE MOLINA PHD 372.30 CONJUNCTIVITIS UNSPECIFIED 11/11/2013 [employer], KIERSTEN 372.30 CONJUNCTIVITIS UNSPECIFIED 11/11/2013 DAMIAN GIRALDO APRN R 372.30 CONJUNCTIVITIS UNSPECIFIED 11/11/2013 [employer]MENT LE[employer], KIERSTEN 372.30 CONJUNCTIVITIS UNSPECIFIED 11/11/2013 MCKEON DO, NAYLA K 372.30 CONJUNCTIVITIS UNSPECIFIED 11/11/2013 TIGRE MOLINA PHD 372.30 CONJUNCTIVITIS UNSPECIFIED 11/11/2013 MCKEON DO, NAYLA K 372.30 CONJUNCTIVITIS UNSPECIFIED 11/11/2013 NAYLA MCKEON DO 372.30 CONJUNCTIVITIS UNSPECIFIED 11/11/2013 KIERSTEN CORBIN APRN 372.30 CONJUNCTIVITIS UNSPECIFIED 11/11/2013 TIGRE MOLINA PHD 372.30 CONJUNCTIVITIS UNSPECIFIED 11/11/2013 KIERSTEN CORBIN APRN 372.30 CONJUNCTIVITIS UNSPECIFIED 11/19/2013 BECKIE STAFFORD APRN R 300.00 ANXIETY UNSPEC 11/19/2013 TIGRE MOLINA PHD 300.00 ANXIETY UNSPEC 11/19/2013 [facility], CRISTÓBAL R 300.00 ANXIETY UNSPEC 11/19/2013 JASPREET MARRERO MD 300.00 ANXIETY UNSPEC 11/19/2013 TIGRE MOLINA PHD 300.00 ANXIETY UNSPEC 11/19/2013 KIERSTEN CORBIN APRN 300.00 ANXIETY UNSPEC 11/19/2013 DAMIAN GIRALDO APRN 300.00 ANXIETY UNSPEC 11/19/2013 KIERSTEN CORBIN APRN 300.00 ANXIETY UNSPEC 11/19/2013 NAYLA MCKEON DO 300.00 ANXIETY UNSPEC 11/19/2013 TIGRE MOLINA PHD 300.00 ANXIETY UNSPEC 11/19/2013 NAYLA MCKEON DO 300.00 ANXIETY UNSPEC 11/19/2013 NAYLA MCKEON DO 300.00 ANXIETY UNSPEC 11/19/2013 KIERSTEN CORBIN APRN 300.00 ANXIETY UNSPEC 11/19/2013 TIGRE MOLINA PHD 300.00 ANXIETY UNSPEC 11/19/2013 KIERSTEN CORBIN APRN 300.00 ANXIETY UNSPEC 12/23/2013 TIGRE MOLINA PHD 296.90 MOOD DISORDER NOS 12/23/2013 [facility], CRIST[place] R 296.90 MOOD DISORDER NOS 12/23/2013 JASPREET MARRERO MD 296.90 MOOD DISORDER NOS 12/23/2013 TIGRE MOLINA PHD 296.90 MOOD DISORDER NOS 12/23/2013 KIERSTEN CORBIN APRN 296.90 MOOD DISORDER NOS 12/23/2013 DAMIAN GIRALDO APRN 296.90 MOOD DISORDER NOS 12/23/2013 KIERSTEN CORBIN APRN 296.90 MOOD DISORDER NOS 12/23/2013 NAYLA MCKEON DO 296.90 MOOD DISORDER NOS 12/23/2013 TIGRE MOLINA PHD 296.90 MOOD DISORDER NOS 12/23/2013 NAYLA MCKEON DO 296.90 MOOD DISORDER NOS 12/23/2013 MCKEON DO, NAYLA K 296.90 MOOD DISORDER NOS 12/23/2013 [employer], KIERSTEN 296.90 MOOD DISORDER NOS 12/23/2013 TRACY VALADEZ, TIGRE Street 296.90 MOOD DISORDER NOS 12/23/2013 [employer], KIERSTEN 296.90 MOOD DISORDER NOS 01/20/2014 ELIDA BISWAS, JASPREET 466.0 ACUTE BRONCHITIS 01/20/2014 TRACY VALADEZ, TIGRE Street 466.0 ACUTE BRONCHITIS 01/20/2014 [employer] DE[employer]MENT [employer], KIERSTEN 466.0 ACUTE BRONCHITIS 01/20/2014 DAMIAN GIRALDO APRN R 466.0 ACUTE BRONCHITIS 01/20/2014 [employer] DE[employer]MENT LE[employer], KIERSTEN 466.0 ACUTE BRONCHITIS 01/20/2014 VICKY MCKEON DOA K 466.0 ACUTE BRONCHITIS 01/20/2014 TRACY VALADEZ, TIGRE [address] 466.0 ACUTE BRONCHITIS 01/20/2014 VICKY MCKEON DOA K 466.0 ACUTE BRONCHITIS 01/20/2014 VICKY MCKEON DOA K 466.0 ACUTE BRONCHITIS 01/20/2014 [employer] DE[employer]MENT LE[employer], KIERSTEN 466.0 ACUTE BRONCHITIS 01/20/2014 TRACY VALADEZ, TIGRE Street 466.0 ACUTE BRONCHITIS 01/20/2014 [employer] DE[employer]MENT LE[employer], KIERSTEN 466.0 ACUTE BRONCHITIS 02/19/2014 TINY GIRALDO APRNIA R 305.1 TOBACCO ABUSE 02/19/2014 EMERALD JANE KIERSTEN 305.1 TOBACCO ABUSE 02/19/2014 VICKY MCKEON DOA K 305.1 TOBACCO ABUSE 02/19/2014 TRACY VALADEZ, TIGRE [address] 305.1 TOBACCO ABUSE 02/19/2014 NAYLA MCKEON DO K 305.1 TOBACCO ABUSE 02/19/2014 NAYLA MCKEON DO K 305.1 TOBACCO ABUSE 02/19/2014 EMERALD JANE KIERSTEN 305.1 TOBACCO ABUSE 02/19/2014 TRACY VALADEZ, TIGRE Street 305.1 TOBACCO ABUSE 02/19/2014 KIERSTEN CORBIN APRN 305.1 TOBACCO ABUSE 04/15/2014 Ot 564.00 04/15/2014 Ot 787.01 04/15/2014 Ot 255.9 04/15/2014 Ot 492.8 04/15/2014 Ot 564.00 04/15/2014 Ot 787.01 04/15/2014 BECKIE STAFFORD APRN Ot 368.9 04/15/2014 BECKIE STAFFORD APRN Ot 784.0 04/15/2014 MOLLY BISWAS, DENEEN Street Ot 487.1 FLU W RESP MANIFEST NEC 04/15/2014 MOLLY BISWAS, DENEEN Strete Ot 780.60 FEVER, UNSPECIFIED 04/15/2014 Ot 564.00 04/15/2014 Ot 787.01 04/15/2014 Ot 255.9 04/15/2014 Ot 492.8 04/15/2014 Ot 564.00 04/15/2014 Ot 787.01 04/15/2014 BECKIE STAFFORD APRN Ot 368.9 04/15/2014 BECKIE STAFFORD APRN Ot 784.0 04/23/2014 NAYLA MCKEON DO K 786.2 COUGH 04/23/2014 NAYLA MCKEON DO K 786.2 COUGH 04/23/2014 [employer] DE[employer]MENT LE[employer], KIERSTEN 786.2 COUGH 04/23/2014 TRACY PHD, TIGRE Street 786.2 COUGH 04/23/2014 [employer] DE[employer]MENT LE[employer], KIERSTEN 786.2 COUGH 05/01/2014 NAYLA MCKEON DO 491.21 OBSTRUCTIVE CHRONIC BRONCHITIS WITH (ACUTE) EXACERBATION 05/01/2014 NAYLA MCKEON DO 491.21 OBSTRUCTIVE CHRONIC BRONCHITIS WITH (ACUTE) EXACERBATION 05/01/2014 EMERALD BUCK KIERSTEN 491.21 OBSTRUCTIVE CHRONIC BRONCHITIS WITH (ACUTE ) EXACERBATION 05/01/2014 TRACY PHD, TIGRE Street 491.21 OBSTRUCTIVE CHRONIC BRONCHITIS WITH ( ACUTE) EXACERBATION 05/01/2014 EMERALDKIERSTEN MAO APRN 491.21 OBSTRUCTIVE CHRONIC BRONCHITIS WITH (ACUTE ) EXACERBATION 06/27/2014 Ot 564.00 06/27/2014 Ot 787.01 06/27/2014 Ot 255.9 06/27/2014 Ot 492.8 06/27/2014 Ot 564.00 06/27/2014 Ot 787.01 06/27/2014 BECKIE STAFFORD APRN Ot 368.9 06/27/2014 BECKIE STAFFORD APRN Ot 784.0 11/11/2014 Ot 564.00 11/11/2014 Ot 787.01 11/11/2014 Ot 255.9 11/11/2014 Ot 492.8 11/11/2014 Ot 564.00 11/11/2014 Ot 787.01 11/11/2014 BECKIE STAFFORD [employer] DEPL[employer]MENT LEAD Ot 368.9 11/11/2014 BECKIE STAFFORD [employer] DEPL[employer]MENT LEAD Ot 784.0 11/11/2014 RONNIE COLON MD (DDU) Ot V68.01 11/11/2014 RONNIE COLON MD (DDU) Ot V82.89 11/15/2014 NAYLA MCKEON DO Ot 305.1 TOBACCO USE DISORDER 11/15/2014 NAYLA MCKEON DO Ot 401.9 HYPERTENSION NOS 11/15/2014 NAYLA MCKEON DO Ot 491.21 OBSTR CHRONIC BRONCHITIS, W (ACUTE) EXAC 11/15/2014 NAYLA MCKEON DO K Ot 518.81 ACUTE RESPIRATORY FAILURE 11/15/2014 NAYLA MCKEON DO Ot 790.29 OTHER ABNORMAL GLUCOSE 12/09/2014 Ot 564.00 12/09/2014 Ot 787.01 12/09/2014 Ot 255.9 12/09/2014 Ot 492.8 12/09/2014 Ot 564.00 12/09/2014 Ot 787.01 12/09/2014 BECKIE STAFFORD [employer] DEPL[employer]MENT LEAD Ot 368.9 12/09/2014 BECKIE STAFFORD APRN Ot 784.0 12/09/2014 RONNIE COLON MD (DDU) Ot V68.01 12/09/2014 RONNIE COLON MD (DDU) Ot V82.89 12/12/2014 Ot 564.00 12/12/2014 Ot 787.01 12/12/2014 Ot 255.9 12/12/2014 Ot 492.8 12/12/2014 Ot 564.00 12/12/2014 Ot 787.01 12/12/2014 BECKIE STAFFORD [employer] DEPL[employer]MENT LEAD Ot 368.9 12/12/2014 BECKIE STAFFORD [employer] 7 DEPLOYMENT LEAD Ot 784.0 12/12/2014 RONNIE COLON MD (DDU) Ot V68.01 12/12/2014 RONNIE COLON MD (DDU) Ot V82.89 12/12/2014 JEREMY SNOWDEN [employer] 7 DEPLOYMENT LEAD Ot V76.12 01/19/2015 GERDA STARKS [employer] 7 DEPLOYMENT LEAD Ot Z12.31 04/01/2015 Ot 564.00 04/01/2015 Ot 787.01 04/01/2015 Ot 255.9 04/01/2015 Ot 492.8 04/01/2015 Ot 564.00 04/01/2015 Ot 787.01 04/01/2015 BECKIE STAFFORD [employer] 7 DEPLOYMENT LEAD Ot 368.9 04/01/2015 BECKIE STAFFORD [employer] 7 DEPLOYMENT LEAD Ot 784.0 04/01/2015 RONNIE COLON MD (DDU) Ot V68.01 04/01/2015 RONNIE COLON MD (DDU) Ot V82.89 04/01/2015 ISISVETLANAJEREMY Monty [employer] 7 DEPLOYMENT LEAD Ot V76.12 04/01/2015 GERDA STARKS [employer] 7 DEPLOYMENT LEAD Ot Z12.31 04/15/2015 ISI, JEREMY A WIND[employer] 7 DEPLOYMENT LEAD Ot V76.12 05/02/2015 ISISVETLANAJEREMY A [employer]IND[employer] 7 DEPLOYMENT LEAD Ot V76.12 11/30/2015 Ot 564.00 UNSPEC CONSTIPATION 11/30/2015 Ot 787.01 NAUSEA WITH VOMITING 11/30/2015 Ot 255.9 ADRENAL DISORDER N0S 11/30/2015 Ot 492.8 EMPHYSEMA NEC 11/30/2015 Ot 564.00 UNSPEC CONSTIPATION 11/30/2015 Ot 787.01 NAUSEA WITH VOMITING 11/30/2015 BECKIE STAFFORD [employer] DEPL[employer]MENT LEAD Ot 368.9 VISUAL DISTURBANCE NOS 11/30/2015 BECKIE STAFFORD [employer] DEPLOYMENT LEAD Ot 784.0 HEADACHE 11/30/2015 RONNIE COLON MD (DDU) Ot V68.01 DISABILITY EXAMINATION 11/30/2015 RONNIE COLON MD (DDU) Ot V82.89 SCREEN FOR OTH SPECIF CONDITIONS 11/30/2015 ISISVETLANAJEREMY A [employer] 7 DEPLOYMENT LEAD Ot V76.12 OTH SCREEN MAMMO-MALIGN NEOPLASM OF [place] 11/30/2015 GERDA STARKS [employer] 7 DEPLOYMENT LEAD Ot Z12.31 ENCNTR SCREEN MAMMOGRAM FOR MALIGNANT NE 11/30/2015 Ot 564.00 UNSPEC CONSTIPATION 11/30/2015 Ot 787.01 NAUSEA WITH VOMITING 11/30/2015 Ot 255.9 ADRENAL DISORDER N0S 11/30/2015 Ot 492.8 EMPHYSEMA NEC 11/30/2015 Ot 564.00 UNSPEC CONSTIPATION 11/30/2015 Ot 787.01 NAUSEA WITH VOMITING 11/30/2015 BECKIE STAFFORD [employer] 7 DEPLOYMENT LEAD Ot 368.9 VISUAL DISTURBANCE NOS 11/30/2015 BECKIE STAFFORD [employer] 7 DEPLOYMENT LEAD Ot 784.0 HEADACHE 11/30/2015 RONNIE COLON MD (DDU) Ot V68.01 DISABILITY EXAMINATION 11/30/2015 RONNIE COLON MD (DDU) Ot V82.89 SCREEN FOR OTH SPECIF CONDITIONS 11/30/2015 JEREMY SNOWDEN [employer] 7 DEPLOYMENT LEAD Ot V76.12 OTH SCREEN MAMMO-MALIGN NEOPLASM OF [place] 11/30/2015 GERDA STARKS [employer] 7 DEPLOYMENT LEAD Ot Z12.31 ENCNTR SCREEN MAMMOGRAM FOR MALIGNANT NE 11/30/2015 Ot 255.9 ADRENAL DISORDER N0S 11/30/2015 Ot 492.8 EMPHYSEMA NEC 11/30/2015 Ot 564.00 UNSPEC CONSTIPATION 11/30/2015 Ot 787.01 NAUSEA WITH VOMITING 11/30/2015 BECKIE STAFFORD [employer] 7 DEPLOYMENT LEAD Ot 368.9 VISUAL DISTURBANCE NOS 11/30/2015 BECKIE STAFFORD [employer] 7 DEPLOYMENT LEAD Ot 784.0 HEADACHE 11/30/2015 Ot 564.00 UNSPEC CONSTIPATION 11/30/2015 Ot 787.01 NAUSEA WITH VOMITING 11/30/2015 BECKIE STAFFORD [employer] 7 DEPLOYMENT LEAD Ot 368.9 VISUAL DISTURBANCE NOS 11/30/2015 BECKIE STAFFORD [employer] 7 DEPLOYMENT LEAD Ot 784.0 HEADACHE 11/30/2015 Ot 255.9 ADRENAL DISORDER N0S 11/30/2015 Ot 492.8 EMPHYSEMA NEC 12/01/2015 Ot 564.00 UNSPEC CONSTIPATION 12/01/2015 Ot 787.01 NAUSEA WITH VOMITING 12/01/2015 MARILU SQUIRES MD Ot E78.5 HYPERLIPIDEMIA, UNSPECIFIED 12/01/2015 MARILU SQUIRES MD Ot I10 ESSENTIAL (PRIMARY) HYPERTENSION 12/01/2015 MARILU SQUIRES MD Ot I48.91 UNSPECIFIED ATRIAL FIBRILLATION 12/01/2015 MARILU SQUIRES MD Ot R55 SYNCOPE AND COLLAPSE 12/06/2015 MARILU SQUIRES MD Ot E78.5 HYPERLIPIDEMIA, UNSPECIFIED 12/06/2015 MARILU SQUIRES MD Ot I10 ESSENTIAL (PRIMARY) HYPERTENSION 12/06/2015 MARILU SQUIRES MD Ot I48.91 UNSPECIFIED ATRIAL FIBRILLATION 12/06/2015 MRAILU SQUIRES MD Ot R55 SYNCOPE AND COLLAPSE 12/07/2015 Ot 564.00 UNSPEC CONSTIPATION 12/07/2015 Ot 787.01 NAUSEA WITH VOMITING 12/07/2015 Ot 255.9 ADRENAL DISORDER N0S 12/07/2015 Ot 492.8 EMPHYSEMA NEC 12/07/2015 Ot 564.00 UNSPEC CONSTIPATION 12/07/2015 Ot 787.01 NAUSEA WITH VOMITING 12/07/2015 BECKIE STAFFORD [employer] 7 DEPLOYMENT LEAD Ot 368.9 VISUAL DISTURBANCE NOS 12/07/2015 BECKIE STAFFORD [employer] 7 DEPLOYMENT LEAD Ot 784.0 HEADACHE 12/07/2015 RONNIE COLON MD (DDU) Ot V68.01 DISABILITY EXAMINATION 12/07/2015 RONNIE COLON MD (DDU) Ot V82.89 SCREEN FOR OTH SPECIF CONDITIONS 12/07/2015 JEREMY SNOWDEN [employer] 7 DEPLOYMENT LEAD Ot V76.12 OTH SCREEN MAMMO-MALIGN NEOPLASM OF [place] 12/07/2015 GERDA STARKS APRN Ot Z12.31 ENCNTR SCREEN MAMMOGRAM FOR MALIGNANT NE 12/07/2015 MARILU SQUIRES MD Ot E78.5 HYPERLIPIDEMIA, UNSPECIFIED 12/07/2015 MARILU SQUIRES MD Ot I10 ESSENTIAL (PRIMARY) HYPERTENSION 12/07/2015 MARILU SQUIRES MD Ot I48.91 UNSPECIFIED ATRIAL FIBRILLATION 12/07/2015 MARILU SQUIRES MD Ot R55 SYNCOPE AND COLLAPSE 12/23/2015 Ot 564.00 UNSPEC CONSTIPATION 12/23/2015 Ot 787.01 NAUSEA WITH VOMITING 12/23/2015 Ot 255.9 ADRENAL DISORDER N0S 12/23/2015 Ot 492.8 EMPHYSEMA NEC 12/23/2015 Ot 564.00 UNSPEC CONSTIPATION 12/23/2015 Ot 787.01 NAUSEA WITH VOMITING 12/23/2015 BECKIE STAFFORD [employer] 7 DEPLOYMENT LEAD Ot 368.9 VISUAL DISTURBANCE NOS 12/23/2015 BECKIE STAFFORD [employer] 7 DEPLOYMENT LEAD Ot 784.0 HEADACHE 12/23/2015 RONNIE COLON MD (DDU) Ot V68.01 DISABILITY EXAMINATION 12/23/2015 RONNIE COLON MD (DDU) Ot V82.89 SCREEN FOR OTH SPECIF CONDITIONS 12/23/2015 JEREMY SNOWDEN [employer] 7 DEPLOYMENT LEAD Ot V76.12 OTH SCREEN MAMMO-MALIGN NEOPLASM OF [place] 12/23/2015 GERDA STARKS APRN Ot Z12.31 ENCNTR SCREEN MAMMOGRAM FOR MALIGNANT NE 12/23/2015 MARILU SQUIRES MD Ot E78.5 HYPERLIPIDEMIA, UNSPECIFIED 12/23/2015 MARILU SQUIRES MD Ot I10 ESSENTIAL (PRIMARY) HYPERTENSION 12/23/2015 MARILU SQUIRES MD Ot I48.91 UNSPECIFIED ATRIAL FIBRILLATION 12/23/2015 MARILU SQUIRES MD Ot R55 SYNCOPE AND COLLAPSE 12/23/2015 MARILU SQUIRES MD Ot E78.5 HYPERLIPIDEMIA, UNSPECIFIED 12/23/2015 MARILU SQUIRES MD Ot I10 ESSENTIAL (PRIMARY) HYPERTENSION 12/23/2015 MARILU SQUIRES MD Ot I48.91 UNSPECIFIED ATRIAL FIBRILLATION 12/23/2015 MARILU SQUIRES MD Ot R55 SYNCOPE AND COLLAPSE 12/23/2015 MARILU SQUIRES MD Ot E78.5 HYPERLIPIDEMIA, UNSPECIFIED 12/23/2015 MARILU SQUIRES MD Ot I10 ESSENTIAL (PRIMARY) HYPERTENSION 12/23/2015 MARILU SQUIRES MD Ot I48.91 UNSPECIFIED ATRIAL FIBRILLATION 12/23/2015 MARILU SQUIRES MD Ot R55 SYNCOPE AND COLLAPSE 12/23/2015 BECKIE STAFFORD [employer] 7 DEPLOYMENT LEAD Ot 368.9 VISUAL DISTURBANCE NOS 12/23/2015 BECKIE STAFFORD APRN Ot 784.0 HEADACHE 12/23/2015 Ot 564.00 UNSPEC CONSTIPATION 12/23/2015 Ot 787.01 NAUSEA WITH VOMITING 12/23/2015 Ot 255.9 ADRENAL DISORDER N0S 12/23/2015 Ot 492.8 EMPHYSEMA NEC 12/24/2015 Ot 110.5 DERMATOPHYTOSIS OF BODY 12/24/2015 Ot 782.1 NONSPECIF SKIN ERUPT NEC 12/24/2015 DENEEN BARNES MD Ot 487.1 FLU W RESP MANIFEST NEC 12/24/2015 DENEEN BARNES MD Ot 780.60 FEVER, UNSPECIFIED 12/29/2015 Ot 300.29 12/29/2015 Ot 723.1 12/29/2015 Ot 729.5 12/29/2015 Ot V64.3 12/29/2015 Ot 564.00 UNSPEC CONSTIPATION 12/29/2015 Ot 787.01 NAUSEA WITH VOMITING 12/29/2015 Ot 255.9 ADRENAL DISORDER N0S 12/29/2015 Ot 492.8 EMPHYSEMA NEC 12/29/2015 Ot 564.00 UNSPEC CONSTIPATION 12/29/2015 Ot 787.01 NAUSEA WITH VOMITING 12/29/2015 BECKIE STAFFORD [employer] DEPLOYMENT LEAD Ot 368.9 VISUAL DISTURBANCE NOS 12/29/2015 BECKIE STAFFORD [employer] 7 DEPLOYMENT LEAD Ot 784.0 HEADACHE 12/29/2015 RONNIE COLON MD (DDU) Ot V68.01 DISABILITY EXAMINATION 12/29/2015 RONNIE COLON MD (DDU) Ot V82.89 SCREEN FOR OTH SPECIF CONDITIONS 12/29/2015 ISISVETLANAJEREMY A WIND[employer] 7 DEPLOYMENT LEAD Ot V76.12 OTH SCREEN MAMMO-MALIGN NEOPLASM OF [place] 12/29/2015 GERDA STARKS [employer] 7 DEPLOYMENT LEAD Ot Z12.31 ENCNTR SCREEN MAMMOGRAM FOR MALIGNANT NE 12/29/2015 MARILU SQUIRES MD Ot E78.5 HYPERLIPIDEMIA, UNSPECIFIED 12/29/2015 MARILU SQUIRES MD Ot I10 ESSENTIAL (PRIMARY) HYPERTENSION 12/29/2015 MARILU SQUIRES MD Ot I48.91 UNSPECIFIED ATRIAL FIBRILLATION 12/29/2015 MARILU SQUIRES MD Ot R55 SYNCOPE AND COLLAPSE 12/29/2015 MARILU SQUIRES MD Ot E78.5 HYPERLIPIDEMIA, UNSPECIFIED 12/29/2015 MARILU SQUIRES MD Ot I10 ESSENTIAL (PRIMARY) HYPERTENSION 12/29/2015 MARILU SQUIRES MD Ot I48.91 UNSPECIFIED ATRIAL FIBRILLATION 12/29/2015 MARILU SQUIRES MD Ot R55 SYNCOPE AND COLLAPSE 12/29/2015 Ot 564.00 UNSPEC CONSTIPATION 12/29/2015 Ot 787.01 NAUSEA WITH VOMITING 12/29/2015 Ot 255.9 ADRENAL DISORDER N0S 12/29/2015 Ot 492.8 EMPHYSEMA NEC 12/29/2015 Ot 564.00 UNSPEC CONSTIPATION 12/29/2015 Ot 787.01 NAUSEA WITH VOMITING 12/29/2015 BECKIE STAFFORD [employer] 7 DEPLOYMENT LEAD Ot 368.9 VISUAL DISTURBANCE NOS 12/29/2015 BECKIE STAFFORD [employer] 7 DEPLOYMENT LEAD Ot 784.0 HEADACHE 12/29/2015 RONNIE COLON MD (DDU) Ot V68.01 DISABILITY EXAMINATION 12/29/2015 RONNIE COLON MD (DDU) Ot V82.89 SCREEN FOR OTH SPECIF CONDITIONS 12/29/2015 ISISVETLANAJEREMY A [employer] 7 DEPLOYMENT LEAD Ot V76.12 OTH SCREEN MAMMO-MALIGN NEOPLASM OF [place] 12/29/2015 GERDA STARKS [employer] 7 DEPLOYMENT LEAD Ot Z12.31 ENCNTR SCREEN MAMMOGRAM FOR MALIGNANT NE 12/29/2015 MARILU SQUIRES MD Ot E78.5 HYPERLIPIDEMIA, UNSPECIFIED 12/29/2015 MARILU SQUIRES MD Ot I10 ESSENTIAL (PRIMARY) HYPERTENSION 12/29/2015 MARILU SQUIRES MD Ot I48.91 UNSPECIFIED ATRIAL FIBRILLATION 12/29/2015 MARILU SQUIRES MD Ot R55 SYNCOPE AND COLLAPSE 12/29/2015 MARILU SQUIRES MD Ot E78.5 HYPERLIPIDEMIA, UNSPECIFIED 12/29/2015 MARILU SQUIRES MD Ot I10 ESSENTIAL (PRIMARY) HYPERTENSION 12/29/2015 MARILU SQUIRES MD Ot I48.91 UNSPECIFIED ATRIAL FIBRILLATION 12/29/2015 MARILU SQUIRES MD Ot R55 SYNCOPE AND COLLAPSE 12/31/2015 MARILU SQUIRES MD Ot E78.5 HYPERLIPIDEMIA, UNSPECIFIED 12/31/2015 MARILU SQUIRES MD Ot I10 ESSENTIAL (PRIMARY) HYPERTENSION 12/31/2015 MARILU SQUIRES MD Ot I48.91 UNSPECIFIED ATRIAL FIBRILLATION 12/31/2015 MARILU SQUIRES MD Ot R55 SYNCOPE AND COLLAPSE 04/11/2016 Ot 564.00 UNSPEC CONSTIPATION 04/11/2016 Ot 787.01 NAUSEA WITH VOMITING 04/11/2016 Ot 255.9 ADRENAL DISORDER N0S 04/11/2016 Ot 492.8 EMPHYSEMA NEC 04/11/2016 Ot 564.00 UNSPEC CONSTIPATION 04/11/2016 Ot 787.01 NAUSEA WITH VOMITING 04/11/2016 BECKIE STAFFORD [employer] 7 DEPLOYMENT LEAD Ot 368.9 VISUAL DISTURBANCE NOS 04/11/2016 BECKIE STAFFORD W[employer] 7 DEPLOYMENT LEAD Ot 784.0 HEADACHE 04/11/2016 RONNIE COLON MD (DDU) Ot V68.01 DISABILITY EXAMINATION 04/11/2016 RONNIE COLON MD (DDU) Ot V82.89 SCREEN FOR OTH SPECIF CONDITIONS 04/11/2016 JEREMY SNOWDEN W[employer] 7 DEPLOYMENT LEAD Ot V76.12 OTH SCREEN MAMMO-MALIGN NEOPLASM OF [place] 04/11/2016 GERDA STARKS [employer] 7 DEPLOYMENT LEAD Ot Z12.31 ENCNTR SCREEN MAMMOGRAM FOR MALIGNANT NE 04/11/2016 MARILU SQUIRES MD Ot E78.5 HYPERLIPIDEMIA, UNSPECIFIED 04/11/2016 MARILU SQUIRES MD Ot I10 ESSENTIAL (PRIMARY) HYPERTENSION 04/11/2016 MARILU SQUIRES MD Ot I48.91 UNSPECIFIED ATRIAL FIBRILLATION 04/11/2016 MARILU SQUIRES MD, Ot R55 SYNCOPE AND COLLAPSE 04/11/2016 MARILU SQUIRES MD Ot E78.5 HYPERLIPIDEMIA, UNSPECIFIED 04/11/2016 MARILU SQUIRES MD Ot I10 ESSENTIAL (PRIMARY) HYPERTENSION 04/11/2016 MARILU SQUIRES MD Ot I48.91 UNSPECIFIED ATRIAL FIBRILLATION 04/11/2016 MARILU SQUIRES MD Ot R55 SYNCOPE AND COLLAPSE 04/11/2016 Ot 564.00 UNSPEC CONSTIPATION 04/11/2016 Ot 787.01 NAUSEA WITH VOMITING 04/11/2016 Ot 255.9 ADRENAL DISORDER N0S 04/11/2016 Ot 492.8 EMPHYSEMA NEC 04/11/2016 Ot 564.00 UNSPEC CONSTIPATION 04/11/2016 Ot 787.01 NAUSEA WITH VOMITING 04/11/2016 BECKIE STAFFORD [employer] 7 DEPLOYMENT LEAD Ot 368.9 VISUAL DISTURBANCE NOS 04/11/2016 BECKIE STAFFORD W[employer] 7 DEPLOYMENT LEAD Ot 784.0 HEADACHE 04/11/2016 RONNIE COLON MD (DDU) Ot V68.01 DISABILITY EXAMINATION 04/11/2016 RONNIE COLON MD (DDU) Ot V82.89 SCREEN FOR OTH SPECIF CONDITIONS 04/11/2016 JEREMY SNOWDEN W[employer] 7 DEPLOYMENT LEAD Ot V76.12 OTH SCREEN MAMMO-MALIGN NEOPLASM OF [place] 04/11/2016 GERDA STARKS [employer] 7 DEPLOYMENT LEAD Ot Z12.31 ENCNTR SCREEN MAMMOGRAM FOR MALIGNANT NE 04/11/2016 MARILU SQUIRES MD Ot E78.5 HYPERLIPIDEMIA, UNSPECIFIED 04/11/2016 MARILU SQUIRES MD Ot I10 ESSENTIAL (PRIMARY) HYPERTENSION 04/11/2016 MARILU SQUIRES MD Ot I48.91 UNSPECIFIED ATRIAL FIBRILLATION 04/11/2016 MARILU SQUIRES MD, Ot R55 SYNCOPE AND COLLAPSE 04/11/2016 MARILU SQUIRES MD Ot E78.5 HYPERLIPIDEMIA, UNSPECIFIED 04/11/2016 MARILU SQUIRES MD Ot I10 ESSENTIAL (PRIMARY) HYPERTENSION 04/11/2016 MARILU SQUIRES MD Ot I48.91 UNSPECIFIED ATRIAL FIBRILLATION 04/11/2016 TAVIA MD, BASHAR J Ot R55 SYNCOPE AND COLLAPSE 04/12/2016 TAVON STUART [employer]ICAL SOCIAL CONSULTANT Ot Z12.31 ENCNTR SCREEN MAMMOGRAM FOR MALIGNANT NE 04/17/2016 TAVON STUART MEDICAL SOCIAL CONSULTANT Ot Z12.31 ENCNTR SCREEN MAMMOGRAM FOR MALIGNANT NE 05/02/2016 TAVON STUART MEDICAL SOCIAL CONSULTANT Ot Z12.31 ENCNTR SCREEN MAMMOGRAM FOR MALIGNANT NE 02/17/2017 CAIO LANCASTER DO Ot L72.9 FOLLICULAR CYST OF THE SKIN AND SUBCUTAN 02/17/2017 CAIO LANCASTER DO Ot Z01.818 ENCOUNTER FOR OTHER PREPROCEDURAL EXAMIN Procedures Code Description [place] [address] ROUTINE VENIPUNCTURE 03/27/2012 48003 URINE TEST (IN-HOUSE) 03/27/2012 46957 MICRO ALBUMIN-IN HOUSE 03/27/2012 61263 A1C (IN-HOUSE) 57653 CMP 03/27/2012 4225248 GFR CALC (RESULT ONLY) 03/27/2012 15350 MAMMOGRAM, SCREENING 04/03/2012 41801 PAP SMEAR 2012 Q0091 PAP SMEAR OBTAIN SMEAR 04/03/2012 24975 UA W/ CULTURE IF INDICATED 04/11/2012 63351 CULTURE URINE 54218 URINE TEST (IN-HOUSE) 04/27/2012 91341 THERAPUTIC INJ SQ/IM 04/27/2012 J1055 DEPO-PROVERA INJ 150 MG 04/27/2012 03550 HEMOGLOBIN (IN-HOUSE) 06/08/2012 10570 XRAY CHEST 2 VIEW 06/24/[address] CHEST W/DYE 26922 XRAY ABDOMEN, 1 VIEW (KUB) 06/24/[address] ABDOMEN & PELVIS W/ & W/O CONTRAST 06/24/2012 [address] ABDOMEN & PELVIS W/ & W/O CONTRAST 01/12/2013 67054 ROUTINE VENIPUNCTURE 07/11/2013 16267 UA W/ CULTURE IF INDICATED 07/11/2013 35234 H PYLORI (IN-HOUSE) 07/11/2013 84245 CBC 07/11/2013 6984421 GFR CALC (RESULT ONLY) 07/11/2013 09349 CMP 07/11/2013 47484 LIPASE 2013 92740 MYCOPLASMA ANTIBODY 07/12/2013 15492 PSYCH DIAGNOSTIC EVALUATION 12/23/2013 77529 NO CHARGE 2013 83017 PSYTX PT&/FAMILY 30 MINUTES 01/21/2014 48688 OXIMETRY 2013 54974 PSYTX PT&/FAMILY 30 MINUTES 03/14/2014 75635 OXIMETRY 2013 73821 OXIMETRY 2014 95516 PSYTX PT&/FAMILY 30 MINUTES 06/10/2014 21545 PSYTX PT&/FAMILY 30 MINUTES 07/09/2014 Results Encounters ACCT No. Visit Date/Time Discharge Status Pt. Type Provider Facility Loc./Unit Complaint [id number] 07/15/2014 11:26:00 07/15/2014 23: 59:59 CLS Outpatient KIERSTEN CORBIN APRN [id number] 07/09/2014 12:51:00 07/09/2014 23: 59:59 TIGRE Stoddard PHD [id number] 06/10/2014 10:42:00 06/10/2014 23: 59:59 CLS Outpatient NAYLA MCKEON DO [id number] 05/30/2014 12:45:00 05/30/2014 23: 59:59 CLS Outpatient KIERSTEN CORBIN APRN [id number] 05/01/2014 14:48:00 05/01/2014 23: 59:59 CLS Outpatient NAYLA MCKEON DO [id number] 03/14/2014 13:41:00 03/14/2014 23: 59:59 TIGRE Stoddard PHD [id number] 03/11/2014 14:27:00 03/11/2014 23: 59:59 CLS Outpatient NAYLA MCKEON DO [id number] 03/04/2014 08:54:00 03/04/2014 23: 59:59 CLS Outpatient KIERSTEN CORBIN APRN [id number] 02/19/2014 14:54:00 02/19/2014 23: 59:59 CLS Outpatient DAMIAN GIRALDO APRN [id number] 02/04/2014 12:52:00 02/04/2014 23: 59:59 CLS Outpatient KIERSTEN CORBIN APRN [id number] 01/21/2014 13:08:00 01/21/2014 23: 59:59 CLS Outpatient TIGRE MOLINA PHD [id number] 01/20/2014 16:36:00 01/20/2014 23: 59:59 CLS Outpatient JASPREET MARRERO MD [id number] 01/02/2014 15:26:00 01/02/2014 23: 59:59 CLS Outpatient TRACY MCGRATH CRISTÓBAL Kaiser [id number] 12/23/2013 09:54:00 12/23/2013 23: 59:59 CLS Outpatient TIGRE MOLINA PHD [id number] 11/19/2013 10:35:00 11/19/2013 23: 59:59 CLS Outpatient RIVERA WINDOWS [employer] [facility] [id number] 11/11/2013 13:56:00 11/11/2013 23: 59:59 CLS Outpatient DAMIAN GIRALDO APRN [id number] 09/17/2013 11:34:00 09/17/2013 23: 59:59 CLS Outpatient RIVERA [employer] Spencer [id number] 07/29/2013 16:47:00 07/29/2013 23: 59:59 CLS Outpatient NAYLA MCKEON DO [id number] 07/11/2013 14:51:00 07/11/2013 23: 59:59 CLS Outpatient RIVERA JOHNSONBECKIE Spencer [id number] 06/24/2013 11:14:00 06/24/2013 23: 59:59 CLS Outpatient RACQUEL SY APRN [id number] 05/01/2013 15:11:00 05/01/2013 23: 59:59 CLS Outpatient RIVERA [employer] Spencer [id number] 01/12/2013 10:17:00 01/12/2013 23: 59:59 CLS Outpatient NAYLA MCKEON DO [id number] 01/01/2013 11:29:00 01/01/2013 23: 59:59 CLS Outpatient NAYLA MCKEON DO [id number] 06/22/2012 13:22:00 06/22/2012 23: 59:59 CLS Outpatient NAYLA MCKEON DO [id number] 06/08/2012 15:52:00 06/08/2012 23: 59:59 CLS Outpatient [id number] 04/27/2012 09:48:00 04/27/2012 23: 59:59 CLS Outpatient [id number] 04/11/2012 13:49:00 04/11/2012 23: 59:59 CLS Outpatient [id number] 04/02/2012 14:45:00 04/02/2012 23: 59:59 CLS Outpatient NAYLA MCKEON DO [id number] 03/27/2012 08:47:00 03/27/2012 23: 59:59 CLS Outpatient NAYLA MCKEON DO [id number] 01/26/2012 09:30:00 01/26/2012 23:59 :59 CLS Outpatient NAYLA MCKEON DO [id number] 07/25/2012 16:56:00 Document Registration [id number] 07/06/2012 13:14:00 Document Registration [id number] 02/16/2017 05:30:00 2016 09:05:00 DIS Outpatient CAIO LANCASTER DO D [facility] PREOP CYST HEAD [id number] 04/11/2016 14:09:00 2016 23:59:59 CLS Outpatient STUARTTAVON [employer] CONSULTANT [facility] RAD SCREENING [id number] 12/07/2015 11:46:00 2015 23:59:59 CLS Outpatient MARILU SQUIRES MD [facility] CARD HTN,SYNCOPE,ABIB,HLP [id number] 11/30/2015 10:41:00 2015 23:59:59 CLS Outpatient MARILU SQUIRES MD [facility] CARD SYNCOPE,AFIB,HTN,HLP [id number] 01/14/2015 10:33:00 2014 23:59:59 CLS Outpatient GERDA STARKS [employer] [facility] RAD SCREENING [id number] 12/09/2014 13:27:00 2014 23:59:59 CLS Outpatient JEREMY SNOWDEN [employer] [facility] RAD SCREENING [id number] 11/11/2014 08:55:00 2014 13:13:00 DIS Inpatient NAYLA MCKEON DO [facility] 4TH HYPOXIA COPD EXACERBATION ABD PAIN [id number] 06/27/2014 13:09:00 2014 23:59:59 CLS Outpatient RONNIE COLON MD (DDU) [facility] RAD DDU [id number] 04/15/2014 09:27:00 2014 11:30:00 DIS Emergency DENEEN BARNES MD [facility] ER COUGH BACK/CHEST PAIN [id number] 05/08/2013 09:57:00 2013 23:59:59 CLS Outpatient BECKIE STAFFORD APRN [facility] RAD HEADACHE,BLURRY VISION [id number] 02/23/2017 08:00:00 PEN Preadmit CAIO LANCASTER DO [facility] SDC CYST HEAD [id number] 12/29/2015 14:58:00 Document Registration [id number] 12/29/2015 14:58:00 Document Registration [id number] 04/15/2014 09:27:00 Document Registration [id number] 07/04/2012 08:09:00 Document Registration [id number] 06/26/2012 09:58:00 Document Registration [id number] 06/22/2012 15:28:00 Document Registration [id number] 01/30/2010 21:05:00 Document Registration [id number] 09/28/2009 12:42:00 Document Registration [id number] 11/08/2007 11:54:00 Document Registration
[2017-02-23] MEDS ORDERED: LACTATED RINGERS 1,000 ML IV PRN (08:03)
[2017-02-23] MEDS ORDERED: NS (IVPB) 50 ML ONE (08:43)
[2017-02-23] MEDS ORDERED: ceFAZolin 1,000 MG (ANCEF) VIAL ONE (08:43)
[2017-02-23] MEDS ORDERED: SEVOFLURANE (ULTANE) 15 ML INHAL SOLN ONE ×4 (09:36→10:52)
[2017-02-23] MEDS ORDERED: ROCURONIUM 50 MG/5 ML (ZEMURON) VIAL IV ONE (09:36)
[2017-02-23] MEDS ORDERED: MIDAZOLAM 2 MG/2 ML (VERSED) VIAL ONE (09:36)
[2017-02-23] MEDS ORDERED: proPOfol 200 MG/20 ML (DIPRIVAN) VIAL IV ONE (09:36)
[2017-02-23] MEDS ORDERED: LIDOCAINE PF 2% 5 ML (XYLOCAINE) VIAL ONE (09:36)
[2017-02-23] MEDS ORDERED: ONDANSETRON 4 MG/2 ML (SDV) Z0FRAN ONE (09:36)
[2017-02-23] MEDS ORDERED: fentaNYL INJECTION 100 MCG/2 ML AMP ONE (09:37)
[2017-02-23] MEDS ORDERED: BUPIVACAINE 0.5% 30 ML (SENSORCAINE) VIAL ONE (09:37)
[2017-02-23] MEDS ORDERED: LIDOCAINE 1% INJ 20 ML (XYLOCAINE) VIAL ONE (09:38)
[2017-02-23] MEDS ORDERED: CATHETER FLUSH 10 ML SYR IV PRN (10:00)
[2017-02-23] MEDS ORDERED: ceFAZolin 1 GM/NS 50 ML IVPB IV ONE ×2 (10:00)
[2017-02-23] MEDS ORDERED: NEOSTIGMINE (BLOXIVERZ ) 1 MG/1ML 10 ML VIAL ONE (10:12)
[2017-02-23] MEDS ORDERED: GLYCOPYRROLATE 0.2 MG/ML (ROBINUL) 2 ML VIAL ONE (10:12)
--- NOTE | 2017-02-23 10:45 | Progress Note-Post Operative ---
Post-Operative Progess Note Surgeon (s)/Metrology Technician (s) Surgeon CAIO LANCASTER DO Metrology Technician: na Pre-Operative Diagnosis cyst of head Post-Operative Diagnosis cyst scalp subcutaneous layer Procedure & Operative Findings Date of Procedure 02/23/17 Procedure Performed/Findings excision cyst of scalp Anesthesia Type general Estimated Blood Loss Estimated blood loss (mL): minimal Specimens/Packing Specimens Removed cyst of scalp CAIO LANCASTER DO Feb 23, 2017 10:45
--- NOTE | 2017-02-23 10:52 | Discharge Inst-Simple/Standard ---
Discharge Inst-Standard Patient Instructions/Follow Up Plan of Care/Instructions/FU: 10 days [place] Activity as Tolerated: Yes Discharge Diet: Regular Diet Other Inst to Patient Follow up Appt: Make appointment for 10 days. Instructions: May shower in 24 hours, no tub bath or soaking. Wash scalp in shower and then place antibiotic ointment over incision. Keep area clean and dry. Use incentive spirometer at home as directed. No Smoking Skin/Wound Care: May remove bandages. You need to leave the white strips over incision on they will fall off on their own. Symptoms to Report: Appetite Changes, Extremity Discoloration, Numbness/Tingling, Swelling Increased , Bleeding Excessive, Eyesight Changes, Pain Increased, Urine Color Change, Constipation(Persistent), Fever over 101 degree F, Pain/Pressure in chest, Urinating Difficulty, Cough Up/Vomit Blood, Heart Beat Irreg/Pounding, Pain/ Pressure in jaw, Vaginal Bleeding Increase, Cramps in feet or legs, Lightheadedness, Pain/Pressure in shoulder, Diarrhea(Persistent), Memory Changes Suddenly, Questions/Concerns, Weight gain consecutive days, Dizziness/ Fainting, Nausea/Vomiting, Shortness of Breath, Weight gain over 2 pounds If questions or concerns contact your physician Or seek help at emergency department. CAIO LANCASTER DO Feb 23, 2017 10:52
[2017-02-23 11:50] VITALS: BP 137/68
[2017-02-23 11:55] VITALS: BP 137/68
[2017-02-23 12:15] VITALS: BP 127/52
[2017-02-23 12:50] VITALS: BP 116/50
--- NOTE | 2017-02-23 13:51 | OPERATIVE REPORT ---
DATE OF SERVICE: 02/23/2017 PREOPERATIVE DIAGNOSIS: Cyst . POSTOPERATIVE DIAGNOSIS: Cyst of scalp, subcutaneous layer. PROCEDURE: Excision of cyst of scalp. SURGEON: Caio Quinn DO. ANESTHESIA: General. ESTIMATED BLOOD LOSS: Minimal. COMPLICATIONS: None. INDICATIONS: The patient is a 51-year-old female with a cyst on the posterior aspect of her scalp that causes significant pain. The patient will barely let you palpate it without jumping off of the table. She was explained risks and benefits of procedure and wished to proceed with procedure. Consent was signed on the chart. DESCRIPTION OF PROCEDURE: The patient was taken to the operating suite. She was prepped and draped in sterile fashion. Surgical pause was performed. 15 blade scalpel was used to make a small incision measuring 1.3 cm over the palpable mass. Hemostat was used to dissect around it and the cyst was able to be delivered through the incision. Hemostasis was achieved. The wound was then irrigated with copious amounts of irrigation. Local anesthetic of 0.5% Marcaine and 1% lidocaine 50:50 ratio was used to anesthetize the area. Skin was then closed using 3-0 Prolene in simple interrupted fashion. The patient tolerated the procedure well without any complications. She was taken to recovery room in stable condition. Job ID: [id number] DocumentID: [id number] Dictated Date: 02/23/2017 10:55:02 Joint Setter Date: 02/23/2017 13:50:25 Dictated By: CAIO QUINN DO
== END 2017-02-23 13:45 | disposition home or self-care (01) ==
LOC: SDC 06:57
PROVIDERS: ATTEND Surgery
DX: D36.11 Benign neoplasm of peripheral nerves and autonomic nervous system of face, head, and neck (principal); I48.0 Paroxysmal atrial fibrillation; E11.9 Type 2 diabetes mellitus without complications; I10 Essential (primary) hypertension; E78.5 Hyperlipidemia, unspecified; I49.3 Ventricular premature depolarization; J44.9 Chronic obstructive pulmonary disease, unspecified; F17.210 Nicotine dependence, cigarettes, uncomplicated; Z79.84 Long term (current) use of oral hypoglycemic drugs; Z79.899 Other long term (current) drug therapy
CPT/HCPCS: 82962; 84703; 87081; 88305

== ENCOUNTER → 2017-05-18 | Outpatient (CLI) | payer MEDICAID, MEDICARE ==
--- NOTE | 2017-05-18 18:51 | Diagnostic Imaging Report ---
INDICATION: Routine screening. The current study was also evaluated with a Computer Aided Detection (CAD) system. Comparison is made with prior study from 04/11/2016 and 12/09/2014. FINDINGS: Both breasts are heterogeneously dense, limiting the sensitivity of mammography. The parenchymal pattern is stable. Benign calcifications are noted bilaterally. No new mass or malignant-appearing microcalcifications are seen. The axillae are unremarkable. IMPRESSION: No mammographic features suspicious for malignancy are identified. ACR BI-RADS Category 2: Benign findings. Result letter will be mailed to the patient. Note: At least 10% of breast cancer is not imaged by mammography. Dictated by: Dictated on workstation # [id number]
== END ==
LOC: RAD 14:26
PROVIDERS: ATTEND Nurse Practitioner Family
DX: Z12.31 Encounter for screening mammogram for malignant neoplasm of breast (principal)
CPT/HCPCS: 77067

== ENCOUNTER 2017-07-19 18:32 | Emergency (ER) | payer MEDICARE ==
[~2017-07-19] VITALS: Ht 167.6 cm; Wt 78.9 kg
[2017-07-19] MEDS ORDERED: diphenhydrAMINE 25 MG TAB (BENADRYL) PO ONE (18:45)
[2017-07-19] MEDS ORDERED: predniSONE 20 MG TAB PO ONE (18:45)
[2017-07-19] MEDS ORDERED: EPIN0.3P2 IJ (18:48)
--- NOTE | 2017-07-19 18:48 | ED Integumentary General ---
General Stated Complaint: STUNG BY BEE ON FOOT, ALLERGIC Source: patient Exam Limitations: no limitations History of Present Illness Date Seen by Provider: July 19, 2017 Time Seen by Provider: 18:43 Initial Comments To ER with reports of a bee sting to the dorsal aspect of the left foot 1 hour prior to arrival. She states that she was barefoot outside in the yard when she got stung. She has pain redness and swelling to the area. She reports a history of allergic reactions to bee stings that usually includes difficulty breathing. She normally has an epinephrine pen but she is out and she also like a refill this. She did not take any Benadryl prior to arrival. She denies any systemic symptoms such as itching, nausea vomiting lightheadedness sweating chest pain or trouble breathing. Timing/Duration: constant Severity: moderate Location: feet Allergies and Home Medications Allergies Coded Allergies: varenicline (Verified Adverse Reaction, Mild, NAUSEA, 02/16/17) amitriptyline (Verified Adverse Reaction, Unknown, NAUSEA, 02/16/17) cephalexin (Verified Adverse Reaction, Unknown, PER PRACHI LIGHTHEADNESS , 02/23/17) Dizziness fluticasone (Verified Adverse Reaction, Unknown, 02/16/17) Epitaxis gabapentin (Verified Adverse Reaction, Unknown, NAUSEA, 02/16/17) quetiapine (Verified Adverse Reaction, Unknown, NAUSEA, 02/16/17) Home Medications Albuterol Sulfate 6.7 Gm Hfa.aer.ad, 2 PUFF IH Q4H PRN for SHORTNESS OF BREATH, (Reported) Albuterol Sulfate 2.5 Mg/3 Ml Vial.neb, 2.5 MG NEB Q6H PRN for SHORTNESS OF BREATH, (Reported) Aspirin 81 Mg Tablet.dr, 81 MG PO DAILY, (Reported) Fluticasone/Salmeterol 1 Each Blst.w.dev, 1 PUFF IH BID Must be used twice daily every day. Rinse your mouth and spit after use. Pt. has at home this is a change in direction. Prescribed by: JUVE HERNANDEZ on 11/14/14 1053 Tiotropium [place] 4 Gm Mist.inhal, 4 GM IH DAILY Prescribed by: JUVE HERNANDEZ on 11/14/14 1058 Patient Home Medication List Home Medication List Reviewed: Yes Constitutional: see HPI EENTM: see HPI Respiratory: no symptoms reported Cardiovascular: no symptoms reported Genitourinary: no symptoms reported Musculoskeletal: no symptoms reported Skin: see HPI Psychiatric/Neurological: No Symptoms Reported Endocrine: No Symptoms Reported Past Xwicbgy-Yziqkr-Nypljn Hx Patient Social History Type Used: Cigarettes Recent Foreign Travel: No Contact w/Someone Who Travel: No Recent Hopitalizations: No Immunizations Up To Date Tetanus Booster (TDap): Unknown PED Vaccines UTD: No Seasonal Allergies Seasonal Allergies: Yes Past Medical History Section, Tubal Ligation COPD Currently Using CPAP: No Currently Using BIPAP: No Hypertension Reproductive Disorders: No [employer] History: Tubal Ligation Sexually Transmitted Disease: No HIV/AIDS: No Chronic Back Pain Loss of Vision: Bilateral Anxiety, Depression Adverse Reaction/Blood Tranf: No Family Medical History Alzheimer's disease 19 FATHER 19 MOTHER Colon cancer 19 MOTHER Dementia 19 FATHER FH: pancreatic cancer 19 MOTHER Hypertension 19 MOTHER Myocardial infarction 19 FATHER 19 MOTHER Physical Exam Vital Signs Capillary Refill : General Appearance: WD/WN, no apparent distress HEENT: PERRL/EOMI, normal ENT inspection; No pharyngeal erythema; other (No uvular swelling) Neck: non-tender, full range of motion Respiratory: normal breath sounds, no respiratory distress, no accessory muscle use Gastrointestinal: normal bowel sounds, non tender, soft Extremities: normal range of motion, non-tender Neurologic/Psychiatric: alert, normal mood/affect, oriented x 3 Skin: normal color, warm/dry Skin Problem Character: other (Erythema and swelling dorsal aspect left foot without lymphangitis. This erythema and swelling does not extend proximally beyond the mid foot.) Progress/Results/Core Measures My Orders Orders - BALTA AMRR APRN Diphenhydramine Tablet (Benadryl Tablet) (07/19/17 18:45) Prednisone Tablet (Deltasone Tablet) (07/19/17 18:45) Departure Impression Primary Impression: Insect sting Disposition: 01 HOME, SELF-CARE Condition: Stable Departure-Patient Inst. Decision time for Depature: 18:47 Referrals: YANDEL HUNT APRN (PCP/Family) Primary Care Physician Patient Instructions: Insect Bites and Stings Add. Discharge Instructions: 1. Return to ER for any worsening symptoms 2. Benadryl one tablet every 4-6 hours as needed for itching and pain and swelling in the foot. Use an ice pack to the foot as well for 30 minutes every 1 -2 hours for the rest of tonight. This will help with pain and swelling. He may also take Tylenol and Motrin for pain control. Scripts Epinephrine (Epipen) 0.3 Mg/0.3 Ml Auto.injct 0.3 MG IJ PRN PRN for allergic reaction, #2 EACH Prov: BALTA MARR APRN 07/19/17 BALTA MARR APRN July 19, 2017 18:48
[2017-07-19 19:00] VITALS: BP 172/94
== END 2017-07-19 19:00 | disposition home or self-care (01) ==
LOC: EDUNIT# 18:32 → ER 18:32
DX: T63.441A Toxic effect of venom of bees, accidental (unintentional), initial encounter (principal); J44.9 Chronic obstructive pulmonary disease, unspecified; I10 Essential (primary) hypertension; F41.9 Anxiety disorder, unspecified; F32.9 Major depressive disorder, single episode, unspecified; Z88.1 Allergy status to other antibiotic agents; Z88.8 Allergy status to other drugs, medicaments and biological substances; Z80.0 Family history of malignant neoplasm of digestive organs; Z82.49 Family history of ischemic heart disease and other diseases of the circulatory system; Z79.82 Long term (current) use of aspirin; Z79.51 Long term (current) use of inhaled steroids; Z87.59 Personal history of other complications of pregnancy, childbirth and the puerperium; Z98.51 Tubal ligation status
CPT/HCPCS: 99283

== ENCOUNTER 2017-08-19 23:24 | Emergency (ER) | payer MEDICARE ==
[~2017-08-19] VITALS: Ht 167.6 cm; Wt 86.2 kg
[~2017-08-19 23:24] MED LIST changes: +EPIN0.3P2 IJ
--- NOTE | 2017-08-20 | ED Fall/Injury ---
General Stated Complaint: FALL Source: patient Exam Limitations: no limitations History of Present Illness Date Seen by Provider: Aug 19, 2017 Time Seen by Provider: 23:43 Initial Comments Here with report of fall while at [employer] approximately 2 hours ago. States that she was walking 4 word and tripped over a board and fell backwards. She is not exactly sure how she did it. States that her friends are doing. Does have ecchymosis at the left great toe and left second, third and fourth finger at the IP joints. Swelling noted to both areas. Does have abrasions to the top of the left foot and bilateral knees. Also complains of neck pain on the left side and states that she feels like she hit the board with the left side of her neck. Denies hitting her head or loss of consciousness. Denies pain to her head. Occurred: just prior to arrival Severity: moderate Injuries/Pain Location: upper extremity Context: tripped Loss of Consciousness: no loss of consciousness Modifying Factors: Improves With Immobilization; Worse With Movement Associated Symptoms (Fall): No Abdominal Pain, No Chest Pain, No Confusion, No Lightheadedness; Muscle Spasms; No Nausea/Vomiting; Neck Pain Allergies and Home Medications Allergies Coded Allergies: varenicline (Verified Adverse Reaction, Mild, NAUSEA, 02/16/17) amitriptyline (Verified Adverse Reaction, Unknown, NAUSEA, 02/16/17) cephalexin (Verified Adverse Reaction, Unknown, PER PRACHI LIGHTHEADNESS , 02/23/17) Dizziness fluticasone (Verified Adverse Reaction, Unknown, 02/16/17) Epitaxis gabapentin (Verified Adverse Reaction, Unknown, NAUSEA, 02/16/17) quetiapine (Verified Adverse Reaction, Unknown, NAUSEA, 02/16/17) Home Medications Albuterol Sulfate 6.7 Gm Hfa.aer.ad, 2 PUFF IH Q4H PRN for SHORTNESS OF BREATH, (Reported) Albuterol Sulfate 2.5 Mg/3 Ml Vial.neb, 2.5 MG NEB Q6H PRN for SHORTNESS OF BREATH, (Reported) Aspirin 81 Mg Tablet.dr, 81 MG PO DAILY, (Reported) Epinephrine 0.3 Mg/0.3 Ml Auto.injct, 0.3 MG IJ PRN PRN for allergic reaction Prescribed by: BALTA MARR on 07/19/17 4693 Fluticasone/Salmeterol 1 Each Blst.w.dev, 1 PUFF IH BID Must be used twice daily every day. Rinse your mouth and spit after use. Pt. has at home this is a change in direction. Prescribed by: JUEV HERNANDEZ on 11/14/14 1058 Tiotropium [place] 4 Gm Mist.inhal, 4 GM IH DAILY Prescribed by: JUVE HERNANDEZ on 11/14/14 1058 Patient Home Medication List Home Medication List Reviewed: Yes Review of Systems Constitutional: see HPI; No chills, No fever Eyes: No Symptoms Reported Ears, Nose, Mouth, Throat: no symptoms reported Respiratory: no symptoms reported; No cough, No short of breath Cardiovascular: No chest pain Gastrointestinal: No nausea, No vomiting Genitourinary: no symptoms reported Musculoskeletal: see HPI, joint pain, joint swelling, neck pain Skin: change in color, lesions Psychiatric/Neurological: Denies Headache, Denies Numbness, Denies Weakness All Other Systems Reviewed Negative Unless Noted: Yes Past Szrxqkq-Itxtil-Gjvrfp Hx Past Med/Social Hx: Reviewed Nursing Past Med/Soc Hx Patient Social History Alcohol Use: Denies Use Recreational Drug Use: No Smoking Status: Current Everyday Smoker Type Used: Cigarettes Recent Foreign Travel: No Contact w/Someone Who Travel: No Recent Hopitalizations: No Immunizations Up To Date Tetanus Booster (TDap): Unknown PED Vaccines UTD: No Seasonal Allergies Seasonal Allergies: Yes Past Medical History Surgeries: Yes (I&D OF ABSCESS, NECK SURGERY) Section, Tubal Ligation Respiratory: Yes COPD Currently Using CPAP: No Currently Using BIPAP: No Cardiac: Yes Hypertension Neurological: No 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 Sexually Transmitted Disease: No HIV/AIDS: No Gastrointestinal: No Musculoskeletal: Yes Chronic Back Pain Endocrine: Yes Loss of Vision: Bilateral Cancer: No Psychosocial: Yes (UNKNOWN PSYCH ISSUES--ON MULTIPLE PSYCH MEDICATIONS) Anxiety, Depression Integumentary: No Blood Disorders: No Adverse Reaction/Blood Tranf: No Family Medical History Reviewed Nursing Family Hx Alzheimer's disease 19 FATHER 19 MOTHER Colon cancer 19 MOTHER Dementia 19 FATHER FH: pancreatic cancer 19 MOTHER Hypertension 19 MOTHER Myocardial infarction 19 FATHER 19 MOTHER Physical Exam Vital Signs Vital Signs - First Documented 08/19/17 23:44 Pulse 73 Resp 18 B/P (MAP) 171/86 (114) Pulse Ox 97 O2 Delivery Room Air Capillary Refill : General Appearance: WD/WN, no apparent distress HEENT: PERRL/EOMI, pharynx normal Neck: full range of motion, supple, tender lateral; No tender midline Cardiovascular: regular rate, rhythm, no murmur Respiratory: lungs clear, normal breath sounds Gastrointestinal: non tender, soft Back: normal inspection, no CVA tenderness, no vertebral tenderness Extremities: swelling (middle portion of left second, third and fourth fingers greatest the IP joint. Also noted on left great toe with bruising and swelling at the MTP.) Neurologic/Psychiatric: alert, oriented x 3 Skin: warm/dry, ecchymosis (fingers and toes as listed above), other (abrasion to the top of the left foot and the anterior portion of the lower leg linear in fashion. Small circular abrasion to the anterior bilateral knees.) Tai Coma Score Best Eye Response: (4) Open Spontaneously Best Verbal Response: (5) Oriented Best Motor Response: (6) Obeys Commands Progress/Results/Core Measures Results/Orders My Orders Orders - DENEEN BARNES MD Ct Cervical Spine Wo (08/20/17 00:08) Hand, Left, 3 Views (08/20/17 00:08) Foot, Left, 3 Views (08/20/17 00:08) Hydrocodone/Apap 5/325 Tablet (Lortab 5 (08/20/17 01:20) Vital Signs/I&O 08/19/17 23:44 Pulse 73 Resp 18 B/P (MAP) 171/86 (114) Pulse Ox 97 O2 Delivery Room Air Progress Progress Note : Progress Note Seen and evaluated. CT neck ordered. X-ray left hand and left foot. Monitor patient. Finger fractures noted. Splints applied. Walking shoe applied to the left foot. CT scan of C-spine negative. Discharged home with return precautions. Patient verbalize understanding instructions and agreement with plan. Hydrocodone 5/325 one tab by mouth given. Diagnostic Imaging Diagonstic Imaging: CT Plain Films/CT/US/NM/MRI: c-spine Comments Degenerative changes. No fracture or dislocation. Reviewed: Reviewed Night Jefry Study, Reviewed by Me Diagonstic Imaging: Xray Plain Films/CT/US/NM/MRI: hand Comments Left second and third finger middle phalanx proximal and with small avulsion fractures. Reviewed: Reviewed by Me Diagonstic Imaging: Xray Plain Films/CT/US/NM/MRI: other Comments Three-view x-ray of left foot shows no acute fractures specifically in the first digit. Reviewed: Reviewed by Me Departure Impression Primary Impression: Fracture, finger, multiple sites Additional Impressions: Strain of toe of left foot Qualified Codes: S96.912A - Strain of unspecified muscle and tendon at ankle and foot level, left foot, initial encounter Neck muscle strain Qualified Codes: S16.1XXA - Strain of muscle, fascia and tendon at neck level , initial encounter Disposition: HOME, SELF-CARE Condition: Improved Departure-Patient Inst. Decision time for Depature: 01:47 Referrals: YANDEL HUNT APRN (PCP) Primary Care Physician SHANNAN GARCIA MD Patient Instructions: Finger Fracture (DC), Neck Sprain (DC), Toe Injury (DC) Add. Discharge Instructions: You may take Tylenol/acetaminophen 1000 mg every 8 hours as needed for pain. You may take ibuprofen 600 mg every 8 hours as needed for pain. Use ice packs to affected area to reduce swelling. Follow up with your doctor and 2-3 days for recheck and further evaluation. Follow-up with orthopedist listed or your choosing within one week for recheck and further evaluation. Return for worse pain, fever, vomiting, weakness, breathing problems or other concerns as needed. DENEEN BARNES MD Aug 20, 2017 00:00
[2017-08-20] MEDS ORDERED: METO-370 (00:03)
[2017-08-20] MEDS ORDERED: METF500T8 (00:03)
[2017-08-20] MEDS ORDERED: ATOR10TA66 (00:03)
[2017-08-20] MEDS ORDERED: HYDROcodone/APAP 5 MG/325 MG (LORTAB) TAB PO STA (01:20)
[2017-08-20 02:03] VITALS: BP 171/86
--- NOTE | 2017-08-20 06:57 | Diagnostic Imaging Report ---
PROCEDURE: CT cervical spine without contrast. TECHNIQUE: Multiple contiguous axial images were obtained through the cervical spine without the use of intravenous contrast. Sagittal and coronal reformations were then performed. INDICATION: Neck pain after fall. Findings: There is straightening of the normal cervical lordosis. There has been previous C6-7 fusion. There is slight anterolisthesis of C5 on C6. The vertebral body heights are well-maintained. There is no fracture or traumatic subluxation. The odontoid is intact and lateral masses are well aligned. Prevertebral soft tissues are within normal limits. The odontoid is intact and lateral masses are well aligned. IMPRESSION: Fusion of C6-7 with slight anterolisthesis of C5 on C6. No acute fracture or traumatic subluxation. Dictated by: Dictated on workstation # [id number]
--- NOTE | 2017-08-20 08:16 | Diagnostic Imaging Report ---
INDICATION: Pain. FINDINGS: There are minimally displaced volar plate fractures involving the proximal aspect of middle phalanx of the second and third fingers. Alignment is otherwise normal. There is no acute fracture or dislocation. IMPRESSION: Nondisplaced volar plate fractures involving the proximal aspect of the middle phalanx of the left second and third middle phalanges. Dictated by: Dictated on workstation # [id number]
--- NOTE | 2017-08-20 08:27 | Diagnostic Imaging Report ---
Indication: Fall, pain Comparison: None available. Technique: 3 radiographs of the left foot dated August 20, 2017. Findings: No acute fracture or dislocation. No destructive osseous process. Mild scattered degenerative changes. Lisfranc joint is well aligned. No suspicious radiopaque foreign body. Impression: No acute osseous abnormality with mild degenerative changes. Dictated by: Dictated on workstation # [id number]
== END 2017-08-20 02:03 | disposition home or self-care (01) ==
LOC: EDUNIT# 23:24 → ER 23:26
DX: S62.611A Displaced fracture of proximal phalanx of left index finger, initial encounter for closed fracture (principal); S62.613A Displaced fracture of proximal phalanx of left middle finger, initial encounter for closed fracture; S16.1XXA Strain of muscle, fascia and tendon at neck level, initial encounter; S96.912A Strain of unspecified muscle and tendon at ankle and foot level, left foot, initial encounter; R40.2142 Coma scale, eyes open, spontaneous, at arrival to emergency department; R40.2252 Coma scale, best verbal response, oriented, at arrival to emergency department; R40.2362 Coma scale, best motor response, obeys commands, at arrival to emergency department; J44.9 Chronic obstructive pulmonary disease, unspecified; I10 Essential (primary) hypertension; F41.9 Anxiety disorder, unspecified; F32.9 Major depressive disorder, single episode, unspecified; F17.210 Nicotine dependence, cigarettes, uncomplicated; Z98.51 Tubal ligation status; Z87.59 Personal history of other complications of pregnancy, childbirth and the puerperium; Z79.51 Long term (current) use of inhaled steroids; Z79.82 Long term (current) use of aspirin; Z88.1 Allergy status to other antibiotic agents; Z88.8 Allergy status to other drugs, medicaments and biological substances; Z88.6 Allergy status to analgesic agent; W18.09XA Striking against other object with subsequent fall, initial encounter; Y92.008 Other place in unspecified non-institutional (private) residence as the place of occurrence of the external cause
CPT/HCPCS: 72125; 73130; 73630

== ENCOUNTER → 2018-06-29 | Outpatient (CLI) | payer MEDICARE, OTHER ==
[~2018-06-29] MED LIST changes: +ATOR10TA66; +METF500T8; +METO-370; +TRAZ-190 PO; -TRAZ100T92 PO
--- NOTE | 2018-06-29 19:35 | Diagnostic Imaging Report ---
INDICATION: Screening. The current study was also evaluated with a Computer Aided Detection (CAD) system. COMPARISON: Comparison made with prior examinations from 05/18/2017 back through 12/09/2014. 3D tomosynthesis was performed and reviewed. FINDINGS: The fibroglandular tissue is heterogeneously dense bilaterally. There are a few benign-type calcifications. There is no dominant mass, spiculated lesion, or suspicious calcification identified. The skin, nipples, and axillae are unremarkable. IMPRESSION: Benign. ACR BI-RADS Category 2: Benign findings. Result letter will be mailed to the patient. Note: At least 10% of breast cancer is not imaged by mammography. Dictated by: Dictated on workstation # [id number]
== END ==
LOC: RAD 10:09
PROVIDERS: ATTEND Nurse Practitioner Primary Care
DX: Z12.31 Encounter for screening mammogram for malignant neoplasm of breast (principal)
CPT/HCPCS: 77067

== ENCOUNTER → 2018-12-24 | Outpatient (CLI) | payer MEDICARE ==
--- NOTE | 2018-12-24 08:39 | Diagnostic Imaging Report ---
PROCEDURE: CT chest without contrast. TECHNIQUE: Multiple contiguous axial images were obtained through the chest without the use of intravenous contrast. Auto Exposure Controls were utilized during the CT exam to meet ALARA standards for radiation dose reduction. DATE: December 24, 2018. COMPARISON: CT chest, abdomen, and pelvis of November 11, 2014. INDICATION: 53-year-old female, cough. History of tobacco use. PROCEDURE: Axial noncontrasted CT images of the chest. Noncontrasted limits the evaluation of the mediastinum and vascular structures. FINDINGS: There are mild upper lobe predominant changes of emphysema. There is a 2 mm calcified right upper lobe granuloma on axial image 37. There is no identified pulmonary nodule which is noncalcified. There is no lung mass. There is no focal airspace consolidation. There is no pneumothorax. There is no pleural effusion. The central airways are patent. The heart is not enlarged. There is no pericardial effusion. There is no abnormally enlarged mediastinal or axillary lymph node meeting CT size criteria for adenopathy. There is an area of right renal cortical scarring with adjacent coarse benign calcification. Mild atherosclerotic calcifications are noted. There is a low-attenuation left adrenal nodule on axial image 148 measuring up to maximally 2.0 cm in size with internal attenuation diagnostic for a left adrenal adenoma. There is no identified acute bony abnormality. There are degenerative changes of the spine. IMPRESSION: 1. No identified noncalcified pulmonary nodule or lung mass. 2. No acute cardiopulmonary abnormality. 3. Benign left adrenal adenoma. Dictated by: Dictated on workstation # [id number]
== END ==
LOC: RAD 08:09
PROVIDERS: ATTEND Family Medicine
DX: D35.02 Benign neoplasm of left adrenal gland (principal); F17.210 Nicotine dependence, cigarettes, uncomplicated; R05 Cough
CPT/HCPCS: 71250

== ENCOUNTER 2019-02-04 22:40 | Emergency (ER) | payer MEDICARE ==
[~2019-02-04] VITALS: Ht 168 cm; Wt 74.6 kg
[2019-02-04] MEDS ORDERED: KETOROLAC 30 MG/ML VIAL IVP STA (23:01)
[2019-02-04] MEDS ORDERED: meTOproloL SUCCINATE 50 MG (TOPROL XL) TAB PO SCH (23:15)
[2019-02-04] MEDS ORDERED: cloNIDine 0.1 MG (CATAPRES) TAB PO ONE (23:15)
[2019-02-04] MEDS ORDERED: RT-ALBUTEROL/IPRATROPIUM 3 ML (DUONEB) VIAL INH ONE (23:15)
--- NOTE | 2019-02-04 23:16 | ED General ---
General Chief Complaint: Cardiac/General Problems Stated Complaint: FEVER,HEADACHE Nursing Triage Note: HEADACHE, COUGH, OUT OF BP MEDICATION. Nursing Sepsis Screen: No Definite Risk Source of Information: Patient Exam Limitations: No Limitations History of Present Illness Date Seen by Provider: Feb 04, 2019 Time Seen by Provider: 22:53 Initial Comments Here with a variety of complaints. Initial complains of headache that is frontal bilateral and moderate today. Also noted cough today that is worse with some wheezing. She did do a breathing treatment at home and that did not help very much. She does smoke and continues to smoke and in fact had a cigarette on the way here. She is hypertensive and admits that she is out of her blood pressure medicines as well with her last dose of that being yesterday reportedly. She states that she takes that as needed. She also has diabetes but states that it's actually been pretty controlled with blood sugars typically in the 120s. Denies nausea or vomiting. Denies chest pain or diarrhea. Timing/Duration: 1 Day Severity: Moderate Modifying Factors: improves with Medication Associated Systoms: No Chest Pain; Cough; No Fever/Chills; Headaches; No Nausea/Vomiting; Shortness of Air Allergies and Home Medications Allergies Coded Allergies: varenicline (Verified Adverse Reaction, Mild, NAUSEA, 02/16/17) amitriptyline (Verified Adverse Reaction, Unknown, NAUSEA, 02/16/17) cephalexin (Verified Adverse Reaction, Unknown, PER PRACHI LIGHTHEADNESS, 02/23/17) Dizziness fluticasone (Verified Adverse Reaction, Unknown, 02/16/17) Epitaxis gabapentin (Verified Adverse Reaction, Unknown, NAUSEA, 02/16/17) quetiapine (Verified Adverse Reaction, Unknown, NAUSEA, 02/16/17) Home Medications Albuterol Sulfate 6.7 Gm Hfa.aer.ad, 2 PUFF IH Q4H PRN for SHORTNESS OF BREATH, (Reported) Albuterol Sulfate 2.5 Mg/3 Ml Vial.neb, 2.5 MG NEB Q6H PRN for SHORTNESS OF BREATH, (Reported) Aspirin 81 Mg Tablet.dr, 81 MG PO DAILY, (Reported) Epinephrine 0.3 Mg/0.3 Ml Auto.injct, 0.3 MG IJ PRN PRN for allergic reaction Prescribed by: BALTA MARR on 07/19/17 928 Fluticasone/Salmeterol 1 Each Blst.w.dev, 1 PUFF IH BID Must be used twice daily every day. Rinse your mouth and spit after use. Pt. has at home this is a change in direction. Prescribed by: JUVE HERNANDEZ on 11/14/14 1058 Tiotropium [place] 4 Gm Mist.inhal, 4 GM IH DAILY Prescribed by: JUVE HERNANDEZ on 11/14/14 1058 Patient Home Medication List Home Medication List Reviewed: Yes Review of Systems Review of Systems Constitutional: see HPI, chills; No fever EENTM: nose congestion, throat pain Respiratory: cough, short of breath, wheezing Cardiovascular: No chest pain, No edema Gastrointestinal: No abdominal pain, No vomiting Genitourinary: no symptoms reported Musculoskeletal: no symptoms reported Skin: no symptoms reported All Other Systems Reviewed Negative Unless Noted: Yes Past Jsuscyz-Qoeltc-Watfym Hx Past Med/Social Hx: Reviewed Nursing Past Med/Soc Hx Patient Social History Alcohol Use: Denies Use Recreational Drug Use: No Smoking Status: Current Everyday Smoker Type Used: Cigarettes Recent Foreign Travel: No Contact w/Someone Who Travel: No Recent Infectious Disease Expo: No Recent Hopitalizations: No Physical Abuse: No Sexual Abuse: No Mistreated: No Fear: No Immunizations Up To Date Tetanus Booster (TDap): Unknown PED Vaccines UTD: No Seasonal Allergies Seasonal Allergies: Yes Past Medical History Surgeries: Yes (I&D OF ABSCESS, NECK SURGERY) Section, Tubal Ligation Respiratory: Yes COPD Currently Using CPAP: No Currently Using BIPAP: No Cardiac: Yes High Cholesterol, Hypertension Neurological: No : No 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 Sexually Transmitted Disease: No HIV/AIDS: No Genitourinary: No Gastrointestinal: No Musculoskeletal: Yes Chronic Back Pain Endocrine: Yes Diabetes, Non-Insulin dep Loss of Vision: Bilateral Cancer: No Psychosocial: Yes Anxiety, Depression Integumentary: No Blood Disorders: No Adverse Reaction/Blood Tranf: No Family Medical History Reviewed Nursing Family Hx Alzheimer's disease 19 FATHER 19 MOTHER Colon cancer 19 MOTHER Dementia 19 FATHER FH: pancreatic cancer 19 MOTHER Hypertension 19 MOTHER Myocardial infarction 19 FATHER 19 MOTHER Physical Exam Vital Signs Vital Signs - First Documented 02/04/19 22:43 Temp 37.2 Pulse 106 Resp 18 B/P (MAP) 226/120 (155) Pulse Ox 95 O2 Delivery Room Air Capillary Refill : Less Than 3 Seconds Height, Weight, BMI Height: 5'6.00" Weight: 190lbs. 0.0oz. [id number]; 26.00 BMI Method:Stated General Appearance: No Apparent Distress, WD/WN HEENT: PERRL/EOMI, Pharynx Normal Neck: Non Tender, Supple Respiratory: No Accessory Muscle Use, Expiration, Wheezing Cardiovascular: Regular Rate, Rhythm, No Murmur Gastrointestinal: Non Tender, Soft Back: Normal Inspection, No CVA Tenderness, No Vertebral Tenderness Extremity: Normal Range of Motion, Non Tender Neurologic/Psychiatric: Alert, Oriented x3 Skin: Normal Color, Warm/Dry Progress/Results/Core Measures Suspected Sepsis Recent Fever Within 48 Hours: No Infection Criteria Present: None New/Unexplained Altered Menta: No Sepsis Screen: No Definite Risk SIRS Temperature: Pulse: 106 Respiratory Rate: 18 Laboratory Tests 02/04/19 23:05: White Blood Count 6.3 Blood Pressure 226 /120 Mean: 155 Laboratory Tests 02/04/19 23:05: Creatinine 0.71, Platelet Count 262, Total Bilirubin 0.4 Results/Orders Lab Results Laboratory Tests Test 02/04/19 23:05 Range/Units White Blood Count 6.3 4.3-11.0 10^3/uL Red Blood Count 4.81 4.35-5.85 10^6/uL Hemoglobin 15.0 11.5-16.0 G/DL Hematocrit 44 35-52 % Mean Corpuscular Volume 92 80-99 FL Mean Corpuscular Hemoglobin 31 25-34 PG Mean Corpuscular Hemoglobin Concent 34 32-36 G/DL Red Cell Distribution Width 13.3 10.0-14.5 % Platelet Count 262 130-400 10^3/uL Mean Platelet Volume 9.3 7.4-10.4 FL Neutrophils (%) (Auto) 74 42-75 % Lymphocytes (%) (Auto) 16 12-44 % Monocytes (%) (Auto) 8 0-12 % Eosinophils (%) (Auto) 2 0-10 % Basophils (%) (Auto) 0 0-10 % Neutrophils # (Auto) 4.6 1.8-7.8 X 10^3 Lymphocytes # (Auto) 1.0 1.0-4.0 X 10^3 Monocytes # (Auto) 0.5 0.0-1.0 X 10^3 Eosinophils # (Auto) 0.1 0.0-0.3 10^3/uL Basophils # (Auto) 0.0 0.0-0.1 10^3/uL Sodium Level 142 135-145 MMOL/L Potassium Level 4.0 3.6-5.0 MMOL/L Chloride Level 107 98-107 MMOL/L Carbon Dioxide Level 21 21-32 MMOL/L Anion Gap 14 5-14 MMOL/L Blood Urea Nitrogen 10 7-18 MG/DL Creatinine 0.71 0.60-1.30 MG/DL Estimat Glomerular Filtration Rate > 60 BUN/Creatinine Ratio 14 Glucose Level 104 70-105 MG/DL Calcium Level 9.4 8.5-10.1 MG/DL Corrected Calcium 9.1 8.5-10.1 MG/DL Total Bilirubin 0.4 0.1-1.0 MG/DL Aspartate Amino Transf (AST/SGOT) 19 5-34 U/L Alanine Aminotransferase (ALT/SGPT) 16 0-55 U/L Alkaline Phosphatase 72 40-136 U/L C-Reactive Protein High Sensitivity 0.36 0.00-0.50 MG/DL Total Protein 7.2 6.4-8.2 GM/DL Albumin 4.4 3.2-4.5 GM/DL My Orders Orders - DENEEN BARNES MD Clonidine Tablet (Catapres Tablet) (02/04/19 23:15) Metoprolol Succinate (Xl) Tab (Toprol Xl (02/04/19 23:15) Cbc With Automated Diff (02/04/19 23:) Comprehensive Metabolic Panel (02/04/19 23:) Hs C Reactive Protein (02/04/19 23:01) Ketorolac Injection (Toradol Injection) (02/04/19 23:01) Albuterol/Ipra Inhalation Soln (Duoneb I (02/04/19 23:15) Chest Pa/Lat (2 View) (02/04/19 23:01) Svn Small Volume Nebulizer (02/04/19 23:01) Ed Iv/Invasive Line Start (02/04/19 23:04) Medications Given in ED Current Medications Medications Dose Ordered Sig/Bennett Route Start Time Stop Time Status Last Admin Dose Admin Albuterol/ Ipratropium 3 ml ONCE ONCE INH 02/04/19 23:15 02/04/19 23:16 DC 02/04/19 23:20 3 ML Clonidine HCl 0.1 mg ONCE ONCE PO 02/04/19 23:15 02/04/19 23:16 DC 02/04/19 23:07 0.1 MG Vital Signs/I&O 02/04/19 02/04/19 22:43 23:20 Temp 37.2 Pulse 106 Resp 18 B/P (MAP) 226/120 (155) Pulse Ox 95 97 O2 Delivery Room Air Room Air Capillary Refill : Less Than 3 Seconds Blood Pressure Mean: 155 POS Progress Note : Progress Note Seen and evaluated. IV, labs, chest x-ray, DuoNeb, metoprolol XL 50 mg by mouth, clonidine 0.1 mg by mouth and Toradol 30 mg IV ordered. Monitor patient. 0034: Overall feeling better with blood pressure declining to the 170 systolic. I will send a prescription for metoprolol for one month until she can get her doctor's appointment that she has scheduled in early February. Discharged home with return precautions. Patient verbalize understanding instructions and agreement with plan. Diagnostic Imaging Diagonstic Imaging: Xray Plain Films/CT/US/NM/MRI: chest Comments Chronic lung disease but no acute findings. Departure Impression Primary Impression: Uncontrolled hypertension Additional Impression: Bronchitis Disposition: 01 HOME, SELF-CARE Condition: Improved Departure-Patient Inst. Decision time for Depature: 00:35 Referrals: JUVENAL BLACKMON MD (PCP/Family) Primary Care Physician Patient Instructions: Acute Bronchitis, Adult (DC), High Blood Pressure (DC) Add. Discharge Instructions: All discharge instructions reviewed with patient and/or family. Voiced understanding. You should stop smoking. Talk with Dr. Blackmon about this. Keep your appointment as scheduled and ensure that you get your blood pressure medicines refilled. You were given a prescription for one month to carry you through that time. Return for worse pain, fever, vomiting, weakness, breathing problems or other concerns as needed. Continue to use your inhaler as previously prescribed. Scripts Metoprolol Succinate (Metoprolol Succinate) 50 Mg Tab.er.24h 50 MG PO DAILY, #30 TAB Prov: DENEEN BARNES MD 02/05/19 Copy Copies To 1: JUVENAL BLACKMON MD, TIMOTHY D MD Feb 04, 2019 23:16 POS
[2019-02-04 23:18] LABS: BASOPHILS % (AUTO) 0 % (0-10); EOSINOPHILS # (AUTO) 0.1 10^3/uL (0.0-0.3); EOSINOPHILS % (AUTO) 2 % (0-10); HEMATOCRIT 44 % (35-52); LYMPHOCYTES % (AUTO) 16 % (12-44); MEAN CORPUSCULAR HEMOGLOBIN 31 PG (25-34); MEAN CORPUSCULAR HGB CONC 34 G/DL (32-36); MEAN CORPUSCULAR VOLUME 92 FL (80-99); MEAN PLATELET VOLUME 9.3 FL (7.4-10.4); MONOCYTES # (AUTO) 0.5 X 10^3 (0.0-1.0); MONOCYTES % (AUTO) 8 % (0-12); NEUTROPHILS # (AUTO) 4.6 X 10^3 (1.8-7.8); NEUTROPHILS % (AUTO) 74 % (42-75); PLATELET COUNT 262 10^3/uL (130-400); RED CELL DISTRIBUTION WIDTH 13.3 % (10.0-14.5); WHITE BLOOD COUNT 6.3 10^3/uL (4.3-11.0)
[2019-02-04 23:44] LABS: ALANINE AMINOTRANSFERASE 16 U/L (0-55); ALBUMIN 4.4 GM/DL (3.2-4.5); ALKALINE PHOSPHATASE 72 U/L (40-136); BILIRUBIN,TOTAL 0.4 MG/DL (0.1-1.0); BUN/CREATININE RATIO 14; CALCIUM 9.4 MG/DL (8.5-10.1); CARBON DIOXIDE 21 MMOL/L (21-32); CHLORIDE 107 MMOL/L (98-107); CREATININE SERUM 0.71 MG/DL (0.60-1.30); GFR ESTIMATED > 60; GLUCOSE 104 MG/DL (70-105); SODIUM 142 MMOL/L (135-145); TOTAL PROTEIN 7.2 GM/DL (6.4-8.2)
[2019-02-05] MEDS ORDERED: METO-370 PO (00:42)
[2019-02-05 00:45] VITALS: BP 171/89
--- NOTE | 2019-02-05 07:39 | Diagnostic Imaging Report ---
Reason for examination: Cough. Two views of the chest were obtained and compared to 11/13/2014. The heart size is within normal limits. No mediastinal widening. No pneumothorax. No effusions, heart failure or focal pneumonia. IMPRESSION: 1. No acute disease or significant change in the chest. Dictated by: Dictated on workstation # [id number]
== END 2019-02-05 00:45 | disposition home or self-care (01) ==
LOC: EDUNIT# 22:40 → ER 22:41
DX: I10 Essential (primary) hypertension (principal); J40 Bronchitis, not specified as acute or chronic; J44.9 Chronic obstructive pulmonary disease, unspecified; E78.00 Pure hypercholesterolemia, unspecified; E11.9 Type 2 diabetes mellitus without complications; F41.9 Anxiety disorder, unspecified; F32.9 Major depressive disorder, single episode, unspecified; F17.210 Nicotine dependence, cigarettes, uncomplicated; Z98.51 Tubal ligation status; Z88.1 Allergy status to other antibiotic agents; Z88.8 Allergy status to other drugs, medicaments and biological substances; Z79.82 Long term (current) use of aspirin; Z79.51 Long term (current) use of inhaled steroids; Z82.49 Family history of ischemic heart disease and other diseases of the circulatory system; Z80.0 Family history of malignant neoplasm of digestive organs
CPT/HCPCS: 36415; 71046; 80053; 85025; 86141; 94640; 96374

== ENCOUNTER → 2019-08-01 | Outpatient (CLI) | payer MEDICARE ==
[~2019-08-01] MED LIST changes: +METF-865; +METF-865 PO; -METF500T8; -METF500T8 PO; -METO-370; +METO50TA7; +METO50TA7 PO; -TRAZ-190 PO; +TRAZ-227 PO
[2019-08-01 09:25] LABS: BASOPHILS % (AUTO) 0 % (0-10); EOSINOPHILS # (AUTO) 0.2 10^3/uL (0.0-0.3); EOSINOPHILS % (AUTO) 2 % (0-10); HEMATOCRIT 46 % (35-52); HEMOGLOBIN 15.2 G/DL (11.5-16.0); LYMPHOCYTES % (AUTO) 39 % (12-44); MEAN CORPUSCULAR HEMOGLOBIN 31 PG (25-34); MEAN CORPUSCULAR HGB CONC 33 G/DL (32-36); MEAN CORPUSCULAR VOLUME 94 FL (80-99); MONOCYTES # (AUTO) 0.4 X 10^3 (0.0-1.0); MONOCYTES % (AUTO) 6 % (0-12); NEUTROPHILS % (AUTO) 53 % (42-75); PLATELET COUNT 353 10^3/uL (130-400); RED CELL DISTRIBUTION WIDTH 13.9 % (10.0-14.5); WHITE BLOOD COUNT 7.6 10^3/uL (4.3-11.0)
[2019-08-01 09:49] LABS: ALANINE AMINOTRANSFERASE 15 U/L (0-55); ALBUMIN 4.3 GM/DL (3.2-4.5); ALKALINE PHOSPHATASE 71 U/L (40-136); BILIRUBIN,TOTAL 0.3 MG/DL (0.1-1.0); BUN/CREATININE RATIO 27; CALCIUM 9.1 MG/DL (8.5-10.1); CARBON DIOXIDE 23 MMOL/L (21-32); CHLORIDE 108 MMOL/L (98-107); CHOLESTEROL 226 MG/DL (< 200); CREATININE SERUM 0.71 MG/DL (0.60-1.30); GFR ESTIMATED > 60; GLUCOSE 99 MG/DL (70-105); HDL CHOLESTEROL 60 MG/DL (40-60); SODIUM 142 MMOL/L (135-145); TOTAL PROTEIN 7.4 GM/DL (6.4-8.2); TRIGLYCERIDES 121 MG/DL (<150); VLDL CHOLESTEROL 24 MG/DL (5-40)
== END ==
LOC: LAB 09:01
PROVIDERS: ATTEND Nurse Practitioner Family
DX: E78.2 Mixed hyperlipidemia (principal); I10 Essential (primary) hypertension; E11.9 Type 2 diabetes mellitus without complications
CPT/HCPCS: 36415; 80053; 80061; 83036; 84443; 85025

== ENCOUNTER → 2019-08-13 | Outpatient (CLI) | payer MEDICARE ==
--- NOTE | 2019-08-13 14:49 | Diagnostic Imaging Report ---
INDICATION: Routine screening. COMPARISON: 06/29/2018 and 05/18/2017. TECHNIQUE: 2D and 3D bilateral screening mammography was performed with CAD. FINDINGS: Both breasts are heterogeneously dense, limiting the sensitivity of mammography. There are benign calcifications. No mass or malignant appearing microcalcifications are identified. The axillae are unremarkable. IMPRESSION: No mammographic features suspicious for malignancy are identified. ACR BI-RADS Category 2: Benign findings. Result letter will be mailed to the patient. Note: At least 10% of breast cancer is not imaged by mammography. Dictated by: Dictated on workstation # [id number]
== END ==
LOC: RAD 13:20
PROVIDERS: ATTEND Nurse Practitioner Family
DX: Z12.31 Encounter for screening mammogram for malignant neoplasm of breast (principal)
CPT/HCPCS: 77063; 77067

== ENCOUNTER → 2019-11-20 | Outpatient (CLI) | payer MEDICARE ==
[2019-11-20 09:22] LABS: ALBUMIN 4.1 GM/DL (3.2-4.5)
[2019-11-20 09:27] LABS: BILIRUBIN,TOTAL 0.3 MG/DL (0.1-1.0)
[2019-11-20 09:30] LABS: BILIRUBIN,DIRECT 0.1 MG/DL (0.0-0.3); BILIRUBIN,INDIRECT 0.2 MG/DL
== END ==
LOC: LAB 08:54
PROVIDERS: ATTEND Nurse Practitioner Family
DX: E78.2 Mixed hyperlipidemia (principal)
CPT/HCPCS: 36415; 80061; 80076

== ENCOUNTER → 2020-05-15 | Outpatient (CLI) | payer MEDICARE ==
[~2020-05-15] MED LIST changes: -LISI10TA2 PO; +LISI10TA25 PO
--- NOTE | 2020-05-15 11:59 | Diagnostic Imaging Report ---
INDICATION: Neck pain COMPARISON: 08/20/2017 TECHNIQUE: 4 radiographs of cervical spine dated 05/15/2020 FINDINGS: Minimal anterolisthesis of C5 on C6, unchanged since 2018. No new anterolisthesis or retrolisthesis. Severe disc space height loss at C6/C7, appearing similar to the prior examination. Vertebral body heights appear stable from the prior exam without evidence of recent vertebral body compression deformity. No new severe disc space height loss. Stable minimal disc space height loss at C5/C6. The lateral masses are well seated. The dens is predominantly obscured by overlying osseous structures. Mild scattered facet joint degenerative changes. No acute fracture or dislocation. No destructive osseous process. Prevertebral soft tissues are unremarkable. IMPRESSION: No acute osseous abnormality with stable minimal anterolisthesis of C5 on C6 with stable disc space height loss and fusion of C6 and C7. Dictated by: Dictated on workstation # [id number]
== END ==
LOC: RAD 10:46
PROVIDERS: ATTEND Nurse Practitioner Family
DX: M50.322 Other cervical disc degeneration at C5-C6 level (principal); M43.12 Spondylolisthesis, cervical region; M43.22 Fusion of spine, cervical region
CPT/HCPCS: 72040

== ENCOUNTER 2020-05-27 13:00 | Outpatient (RCR) | payer MEDICARE ==
[2020-06-06] MEDS ORDERED: METH-731 PO (19:42)
[2020-06-06] MEDS ORDERED: PRD20T PO (19:47)
== END 2020-07-02 10:00 | disposition home or self-care (01) ==
PROVIDERS: ATTEND Nurse Practitioner Family
DX: M54.2 Cervicalgia (principal); Z98.1 Arthrodesis status

== ENCOUNTER 2020-06-06 17:15 | Emergency (ER) | payer MEDICARE ==
[~2020-06-06] VITALS: Ht 167.7 cm; Wt 81.6 kg
--- NOTE | 2020-06-06 17:55 | ED Fall/Injury ---
General Chief Complaint: General Problems/Pain Stated Complaint: NECK/BACK PAIN Nursing Triage Note: PT AMB TO [facility] 7 WITH COMPLAINT OF NECK AND BACK PAIN. NECK PAIN HAS BEEN ONGOING FOR 2 WEEKS. STATES BACK PAIN STARTED AFTER A FALL ON MONDAY. HAS TAKEN ASPIRIN, TYLENOL, ALEVE, ADVIL FOR PAIN WITH NO RELIEF. Source: patient Exam Limitations: no limitations History of Present Illness Date Seen by Provider: Jun 06, 2020 Time Seen by Provider: 17:41 Initial Comments This is a well-appearing 54-year-old female who presents to the ER with complaints of headache, neck pain, upper and lower back pain after sustaining a fall 3 days ago. States she was walking down the hallway and slipped and fell on her back. Reports 10/10 pain in her back, neck, and head. Worse with movement. States she has tried taking aspirin, Advil, Flexeril for pain and nothing helps. She denies any LOC, nausea, vomiting. No loss of bowel/bladder sensation. No numbness in her groin or buttocks. Denies any numbness, tingling, shooting sensation down her extremities. Allergies and Home Medications Allergies Coded Allergies: varenicline (Verified Adverse Reaction, Mild, NAUSEA, 02/16/17) amitriptyline (Verified Adverse Reaction, Unknown, NAUSEA, 02/16/17) cephalexin (Verified Adverse Reaction, Unknown, PER PRACHI LIGHTHEADNESS, 02/23/17) Dizziness fluticasone (Verified Adverse Reaction, Unknown, 02/16/17) Epitaxis gabapentin (Verified Adverse Reaction, Unknown, NAUSEA, 02/16/17) quetiapine (Verified Adverse Reaction, Unknown, NAUSEA, 02/16/17) Home Medications Albuterol Sulfate 6.7 Gm Hfa.aer.ad, 2 PUFF IH Q4H PRN for SHORTNESS OF BREATH, (Reported) Albuterol Sulfate 2.5 Mg/3 Ml Vial.neb, 2.5 MG NEB Q6H PRN for SHORTNESS OF BREATH, (Reported) Aspirin 81 Mg Tablet.dr, 81 MG PO DAILY, (Reported) Epinephrine 0.3 Mg/0.3 Ml Auto.injct, 0.3 MG IJ PRN PRN for allergic reaction Prescribed by: BALTA MARR on 07/19/17 1143 Fluticasone/Salmeterol 1 Each Blst.w.dev, 1 PUFF IH BID Must be used twice daily every day. Rinse your mouth and spit after use. Pt. has at home this is a change in direction. Prescribed by: JUVE HERNANDEZ on 11/14/14 105 Methocarbamol 500 Mg Tablet, 1,000 MG PO Q6-8HR Prescribed by: MATEO MAYA on 06/06/201941 Metoprolol Succinate 50 Mg Tab.er.24h, 50 MG PO DAILY Prescribed by: DENEEN BARNES on 02/05/1941 Prednisone 20 Mg Tab, 20 MG PO DAILY Prescribed by: MATEO MAYA on 06/06/201946 Tiotropium Hudson 4 Gm Mist.inhal, 4 GM IH DAILY Prescribed by: JUVE HERNANDEZ on 11/14/14 105 Patient Home Medication List Home Medication List Reviewed: Yes Review of Systems Review of Systems Constitutional: no symptoms reported Eyes: No Symptoms Reported Ears, Nose, Mouth, Throat: no symptoms reported Respiratory: no symptoms reported Cardiovascular: no symptoms reported Gastrointestinal: no symptoms reported Genitourinary: no symptoms reported Musculoskeletal: see HPI Skin: no symptoms reported Psychiatric/Neurological: No Symptoms Reported Past Qtxbpla-Mzrddb-Nmvxgw Hx Patient Social History Alcohol Use: Denies Use Smoking Status: Current Everyday Smoker Type Used: Cigarettes Recent Infectious Disease Expo: No Recent Hopitalizations: No Immunizations Up To Date Tetanus Booster (TDap): Unknown PED Vaccines UTD: No Seasonal Allergies Seasonal Allergies: Yes Past Medical History Surgeries: Yes (I&D OF ABSCESS, NECK SURGERY) Section, Tubal Ligation Respiratory: Yes COPD Currently Using CPAP: No Currently Using BIPAP: No Cardiac: Yes High Cholesterol, Hypertension Neurological: No 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 [employer] History: Tubal Ligation Sexually Transmitted Disease: No HIV/AIDS: No Genitourinary: No Gastrointestinal: No Musculoskeletal: Yes Chronic Back Pain Endocrine: Yes Diabetes, Non-Insulin dep Loss of Vision: Bilateral Cancer: No Psychosocial: Yes Anxiety, Depression Integumentary: No Blood Disorders: No Adverse Reaction/Blood Tranf: No Family Medical History Alzheimer's disease 19 FATHER 19 MOTHER Colon cancer 19 MOTHER Dementia 19 FATHER FH: pancreatic cancer 19 MOTHER Hypertension 19 MOTHER Myocardial infarction 19 FATHER 19 MOTHER Physical Exam Vital Signs Vital Signs - First Documented 06/06/20 17:30 Temp 36.8 Pulse 90 Resp 17 B/P (MAP) 180/92 (121) Pulse Ox 97 O2 Delivery Room Air Capillary Refill : Less Than 3 Seconds Height, Weight, BMI Height: 5'6.00" Weight: 190lbs. 0.0oz. 86.414975of; 29.00 BMI Method:Stated General Appearance: WD/WN, no apparent distress HEENT: PERRL/EOMI, normal ENT inspection, pharynx normal Neck: full range of motion, normal inspection, tender midline Cardiovascular: regular rate, rhythm, no murmur Respiratory: lungs clear, normal breath sounds Gastrointestinal: normal bowel sounds, non tender, soft Back: normal inspection, vertebral tenderness (Entire spine) Extremities: normal range of motion, non-tender, normal inspection, normal capillary refill, pelvis stable Neurologic/Psychiatric: no motor/sensory deficits, alert, normal mood/affect, oriented x 3 Skin: normal color, warm/dry; No ecchymosis Tai Coma Score Best Eye Response: (4) Open Spontaneously Best Verbal Response: (5) Oriented Best Motor Response: (6) Obeys Commands Tai Total: 15 Progress/Results/Core Measures Results/Orders Lab Results Laboratory Tests Test 06/06/20 17:58 Range/Units Urine Color YELLOW Urine Clarity CLEAR Urine pH 6.0 5-9 Urine Specific Hudson <=1.005 1.016-1.022 Urine Protein NEGATIVE NEGATIVE Urine Glucose (UA) NEGATIVE NEGATIVE Urine Ketones NEGATIVE NEGATIVE Urine Nitrite NEGATIVE NEGATIVE Urine Bilirubin NEGATIVE NEGATIVE Urine Urobilinogen 0.2 < = 1.0 MG/DL Urine Leukocyte Esterase NEGATIVE NEGATIVE Urine RBC (Auto) TRACE-L NEGATIVE Urine RBC 0-2 /HPF Urine WBC NONE /HPF Urine Squamous Epithelial Cells 2-5 /HPF Urine Crystals NONE /LPF Urine Bacteria NEGATIVE /HPF Urine Casts NONE /LPF Urine Mucus NEGATIVE /LPF Urine Culture Indicated NO My Orders Orders - MATEO MAYA APRN Ua Culture If Indicated (06/06/20 17:35) Fentanyl Inj (Sublimaze Injection) (06/06/20 18:00) Orphenadrine Inj (Ed Only) (Norflex Inje (06/06/20 18:00) Ct Head/Cervical Spine Wo (06/06/20 18:35) Thoracic Spine, 2 Views Only (06/06/20 18:35) Lumbar Spine - 2-3 Views (06/06/20 18:35) Methocarbamol Tablet (Robaxin Tablet) (06/06/20 20:00) Prednisone Tablet (Deltasone Tablet) (06/06/20 20:00) Medications Given in ED Current Medications Medications Dose Ordered Sig/Bennett Route Start Time Stop Time Status Last Admin Dose Admin Fentanyl Citrate 50 mcg ONCE ONCE IM 06/06/20 18:00 06/06/20 18:01 DC 06/06/20 18:13 50 MCG Methocarbamol 750 mg ONCE ONCE PO 06/06/20 20:00 06/06/20 20:01 DC 06/06/20 20:08 750 MG Orphenadrine Citrate 60 mg ONCE ONCE IM 06/06/20 18:00 06/06/20 18:01 DC 06/06/20 18:12 60 MG Prednisone 20 mg ONCE ONCE PO 06/06/20 20:00 06/06/20 20:01 DC 06/06/20 20:09 20 MG Vital Signs/I&O 06/06/20 06/06/20 17:30 20:10 Temp 36.8 36.8 Pulse 90 72 Resp 17 18 B/P (MAP) 180/92 (121) 172/91 (121) Pulse Ox 97 98 O2 Delivery Room Air Room Air Blood Pressure Mean: 121 Progress Progress Note : Progress Note Patient examined in no acute distress. During exam her pain appears very exaggerated as she started screaming out in pain with very light touch, had not even began to palpate her spine. During palpation reported severe pain through her entire spine, midline. Orders placed for CT head/cervical spine without contrast, radiographs of thoracic and lumbar spine. Additionally orders placed for fentanyl 50 mcg IM and Norflex 60 mg IM. Reported improvement in pain after fentanyl and Norflex. Was able to tolerate CT and obtaining radiographs. Images reviewed and showed no acute pathology in head, cervical spine, thoracic or lumbar spine. Discussed with her that she likely has pain and inflammation sustained during fall. Will plan to give her prescription for Robaxin as she reports her Flexeril is not helping. Additionally will give her prednisone 20 mg p.o. for 4 days. Discussed following up with her primary care provider if her symptoms persist for further evaluation. She is agreeable with this. She is noted to have elevated blood pressure in the ED states she is due to take her antihypertensive this evening. Reviewed discharge plan of care and she is agreeable with plan. She is able to independently ambulate out of the emergency department. Diagnostic Imaging Diagonstic Imaging: Xray Plain Films/CT/US/NM/MRI: other Comments NAME: KIARRA DUCKWORTH [facility] REC#: [id number] PT STATUS: DEP ER : 1965 PHYSICIAN: MATEO MAYA APRN ADMIT DATE: 06/06/20/ER Signed Date of Exam:06/06/20 THORACIC SPINE, 2 VIEWS ONLY INDICATION: Back pain. EXAMINATION: Thoracic spine. AP and lateral views were obtained. FINDINGS: The upper most thoracic spine is not well-visualized on the lateral view. The lateral view shows the vertebral body heights and alignment to be within normal limits and similar to the prior chest exam of 02/04/2019. There is no fracture or acute bony abnormality noted. The intervertebral spaces are fairly well maintained. There is no sign of a paraspinal mass. IMPRESSION: 1. There is no evidence for an acute bony abnormality. 2. If clinical concern regarding an underlying abnormality persists, then MRI would be recommended for additional study. Dictated by: Dictated on workstation # [id number] Dict: 06/06/201904 Trans: 06/06/202242 [facility] [id number] Interpreted by: RONNIE WHEELER MD Electronically signed by: RONNIE WHEELER MD 06/06/202242 Reviewed: Reviewed by Me Diagonstic Imaging: Xray Plain Films/CT/US/NM/MRI: other Comments NAME: KIARRA DUCKWORTH [facility] REC#: [id number] PT STATUS: DEP ER : 1965 PHYSICIAN: MATEO MAYA APRN ADMIT DATE: 06/06/20/ER Signed Date of Exam:06/06/20 LUMBAR SPINE - 2-3 VIEWS INDICATION: Fell, back pain. EXAMINATION: Lumbar spine. Three views were obtained. COMPARISON: There is no prior study available for comparison. FINDINGS: The lateral view shows slight reversal of the normal lordosis of the lumbar spine. This may be secondary to muscle spasm and/or positioning. There may be a very mild compression deformity of the superior endplate of L2. I suspect this injury is long-standing in nature. The vertebral body heights are otherwise within normal limits. There is no fracture or acute bony abnormality identified. The intervertebral spaces are fairly well maintained. There is no sign of a paraspinal mass. IMPRESSION: 1. There is a mild compression deformity of the superior endplate of L2. This injury appears to be long-standing in nature. There is no acute bony abnormality appreciated. 2. If clinical concern regarding an underlying abnormality persists, then MRI would be recommended for additional study. Dictated by: Dictated on workstation # [id number] Dict: 06/06/201901 Trans: 06/06/202242 [facility] [id number] Interpreted by: RONNIE WHEELER MD Electronically signed by: RONNIE WHEELER MD 06/06/202242 Diagonstic Imaging: CT Plain Films/CT/US/NM/MRI: c-spine, head Comments NAME: KIARRA DUCKWORTH [facility] REC#: [id number] PT STATUS: DEP ER : 1965 PHYSICIAN: MATEO MAYA STAFF ANALYST ADMIT DATE: 06/06/20/ER Signed Date of Exam:06/06/20 CT HEAD/CERVICAL SPINE WO PROCEDURE: CT head and CT cervical spine without contrast. TECHNIQUE: Multiple contiguous axial images were obtained through the brain and cervical spine without the use of intravenous contrast. Sagittal and coronal reformations through the cervical spine were then performed. Auto Exposure Controls were utilized during the CT exam to meet ALARA standards for radiation dose reduction. INDICATION: Fell, head and neck pain. CT HEAD: There is no mass, shift of the midline or hemorrhage to suggest an acute intracranial abnormality. The known tentorial blush is evident. The ventricles are not abnormally dilated and stable in size when compared to the prior exam of 05/08/2013. The bone windows show no sign of a fracture or of a destructive lesion. The orbits are symmetrical and within normal limits. The sinuses, where visualized, are clear. IMPRESSION: 1. There is no evidence for an acute intracranial abnormality. 2. If clinical concern regarding an underlying abnormality persists, then MRI would be recommended for further study. CT CERVICAL SPINE: The previous CT cervical spine exam of 08/20/2017 noted a fusion of C6 and C7. On this exam the fused vertebral bodies are again evident and seem similar in appearance. Also, as noted on the prior exam, there is mild reversal of the normal lordosis of the cervical spine. The thecal sac is relatively generous. There is no high-grade central stenosis noted. The bone windows are unremarkable for a fracture or for a destructive lesion. There is no sign of retropharyngeal edema. The thyroid gland was obscured by streak artifact. The lung apices are clear. IMPRESSION: 1. There is no evidence for an acute bony abnormality of the cervical spine. 2. The fusion of C6 and C7, seen previously, appears stable. Dictated by: Dictated on workstation # [id number] Dict: 06/06/201855 Trans: 06/06/202238 [facility] [phone] Interpreted by: RONNIE WHEELER MD Electronically signed by: RONNIE WHEELER MD 06/06/202238 Reviewed: Reviewed by Me Departure Impression Primary Impression: Fall Additional Impression: Contusion, back Disposition: HOME, SELF-CARE Condition: Improved Departure-Patient Inst. Decision time for Depature: 19:21 Referrals: JUVENAL CEJA MD (PCP/Family) Primary Care Physician Patient Instructions: CHRONIC PAIN, Acute Pain, Adult Add. Discharge Instructions: Plan: 1. Discharge home. 2. Follow up with your doctor if your symptoms persist. 3. May take Tylenol/Ibuprofen as needed for pain. Take Methocarbamol as directed for back pain. 4. Apply ice/heat to affected areas for pain. Take steroids as directed with food as they can upset your stomach. 5. Return to ER for any new, worsening, or concerning symptoms. All discharge instructions reviewed with patient and/or family. Voiced understanding. Scripts Prednisone (Prednisone) 20 Mg Tab 20 MG PO DAILY for 4 Days, #4 TAB 0 Refills Prov: MATEO MAYA STAFF ANALYST 06/06/20 Methocarbamol (Methocarbamol) 500 Mg Tablet 1000 MG PO Q6-8HR for Back Pain, #30 TAB 0 Refills Prov: MATEO MAYA STAFF ANALYST 06/06/20 MATEO MAYA STAFF ANALYST Jun 06, 2020 17:55
[2020-06-06] MEDS ORDERED: fentaNYL INJ 100 MCG/2 ML AMP IM ONE (18:00)
[2020-06-06] MEDS ORDERED: ORPHENADRINE 60 MG/2 ML (NORFLEX) AMP (ED ONLY) IM ONE (18:00)
[2020-06-06 18:05] LABS: BILIRUBIN,URINE NEGATIVE (NEGATIVE); CLARITY,URINE CLEAR; COLOR,URINE YELLOW; GLUCOSE, URINE (UA) NEGATIVE (NEGATIVE); KETONES,URINE NEGATIVE (NEGATIVE); LEUKOCYTE ESTERASE ,URINE NEGATIVE (NEGATIVE); NITRITE,URINE NEGATIVE (NEGATIVE); PROTEIN,URINE NEGATIVE (NEGATIVE)
[2020-06-06 18:28] LABS: BACTERIA,URINE NEGATIVE /HPF; RBC,URINE 0-2 /HPF
--- NOTE | 2020-06-06 19:11 | Diagnostic Imaging Report ---
INDICATION: Fell, back pain. EXAMINATION: Lumbar spine. Three views were obtained. COMPARISON: There is no prior study available for comparison. FINDINGS: The lateral view shows slight reversal of the normal lordosis of the lumbar spine. This may be secondary to muscle spasm and/or positioning. There may be a very mild compression deformity of the superior endplate of L2. I suspect this injury is long-standing in nature. The vertebral body heights are otherwise within normal limits. There is no fracture or acute bony abnormality identified. The intervertebral spaces are fairly well maintained. There is no sign of a paraspinal mass. IMPRESSION: 1. There is a mild compression deformity of the superior endplate of L2. This injury appears to be long-standing in nature. There is no acute bony abnormality appreciated. 2. If clinical concern regarding an underlying abnormality persists, then MRI would be recommended for additional study. Dictated by: Dictated on workstation # [id number]
--- NOTE | 2020-06-06 19:16 | Diagnostic Imaging Report ---
INDICATION: Back pain. EXAMINATION: Thoracic spine. AP and lateral views were obtained. FINDINGS: The upper most thoracic spine is not well-visualized on the lateral view. The lateral view shows the vertebral body heights and alignment to be within normal limits and similar to the prior chest exam of 02/04/2019. There is no fracture or acute bony abnormality noted. The intervertebral spaces are fairly well maintained. There is no sign of a paraspinal mass. IMPRESSION: 1. There is no evidence for an acute bony abnormality. 2. If clinical concern regarding an underlying abnormality persists, then MRI would be recommended for additional study. Dictated by: Dictated on workstation # [id number]
[2020-06-06] MEDS ORDERED: METH-731 PO (19:42)
--- NOTE | 2020-06-06 19:46 | Diagnostic Imaging Report ---
PROCEDURE: CT head and CT cervical spine without contrast. TECHNIQUE: Multiple contiguous axial images were obtained through the brain and cervical spine without the use of intravenous contrast. Sagittal and coronal reformations through the cervical spine were then performed. Auto Exposure Controls were utilized during the CT exam to meet ALARA standards for radiation dose reduction. INDICATION: Fell, head and neck pain. CT HEAD: There is no mass, shift of the midline or hemorrhage to suggest an acute intracranial abnormality. The known tentorial blush is evident. The ventricles are not abnormally dilated and stable in size when compared to the prior exam of 05/08/2013. The bone windows show no sign of a fracture or of a destructive lesion. The orbits are symmetrical and within normal limits. The sinuses, where visualized, are clear. IMPRESSION: 1. There is no evidence for an acute intracranial abnormality. 2. If clinical concern regarding an underlying abnormality persists, then MRI would be recommended for further study. CT CERVICAL SPINE: The previous CT cervical spine exam of 08/20/2017 noted a fusion of C6 and C7. On this exam the fused vertebral bodies are again evident and seem similar in appearance. Also, as noted on the prior exam, there is mild reversal of the normal lordosis of the cervical spine. The thecal sac is relatively generous. There is no high-grade central stenosis noted. The bone windows are unremarkable for a fracture or for a destructive lesion. There is no sign of retropharyngeal edema. The thyroid gland was obscured by streak artifact. The lung apices are clear. IMPRESSION: 1. There is no evidence for an acute bony abnormality of the cervical spine. 2. The fusion of C6 and C7, seen previously, appears stable. Dictated by: Dictated on workstation # [id number]
[2020-06-06] MEDS ORDERED: PRD20T PO (19:47)
[2020-06-06] MEDS ORDERED: predniSONE 20 MG TAB PO ONE (20:00)
[2020-06-06] MEDS ORDERED: METHOCARBAMOL 750 MG (ROBAXIN) TAB PO ONE (20:00)
[2020-06-06 20:10] VITALS: BP 172/91
== END 2020-06-06 20:10 | disposition home or self-care (01) ==
LOC: EDUNIT# 17:15 → ER 17:16
DX: S30.0XXA Contusion of lower back and pelvis, initial encounter (principal); S20.229A Contusion of unspecified back wall of thorax, initial encounter; I10 Essential (primary) hypertension; J44.9 Chronic obstructive pulmonary disease, unspecified; F17.210 Nicotine dependence, cigarettes, uncomplicated; Z79.82 Long term (current) use of aspirin; Z79.52 Long term (current) use of systemic steroids; Z79.51 Long term (current) use of inhaled steroids; Z88.1 Allergy status to other antibiotic agents; Z88.8 Allergy status to other drugs, medicaments and biological substances; Z80.0 Family history of malignant neoplasm of digestive organs; W01.0XXA Fall on same level from slipping, tripping and stumbling without subsequent striking against object, initial encounter
CPT/HCPCS: 70450; 72070; 72100; 72125; 81000

== ENCOUNTER → 2020-07-29 | Outpatient (CLI) | payer MEDICARE ==
[~2020-07-29] MED LIST changes: +METH-731 PO; +PRD20T PO
--- NOTE | 2020-07-29 15:02 | Diagnostic Imaging Report ---
INDICATION: Persistent cough and dyspnea. TIME OF EXAM: 2:41 PM. COMPARISON: 02/04/2019. FINDINGS: The nodular density in the left upper lobe appears to be stable. The lungs are clear of acute infiltrates. The pulmonary vascularity is normal. The heart size is normal. No effusion or pneumothorax is detected. IMPRESSION: Stable chest. No acute feature is identified. Dictated by: Dictated on workstation # [id number]
== END ==
LOC: RAD 14:23
PROVIDERS: ATTEND Nurse Practitioner Family
DX: R05 Cough (principal); R06.00 Dyspnea, unspecified
CPT/HCPCS: 71046

== ENCOUNTER → 2020-11-24 | Outpatient (CLI) | payer MEDICARE | END | disposition home or self-care (01) | LOC: PREOP 05:45 | PROVIDERS: ATTEND Surgery | DX: Z01.818 Encounter for other preprocedural examination (principal) ==

== ENCOUNTER → 2021-01-06 | Outpatient (CLI) | payer MEDICARE | LOC: RAD 12:15 | PROVIDERS: ATTEND Nurse Practitioner | DX: Z12.2 Encounter for screening for malignant neoplasm of respiratory organs (principal); F17.210 Nicotine dependence, cigarettes, uncomplicated ==

== ENCOUNTER 2022-10-24 10:39 | Outpatient (CLI) | payer MEDICARE ==
[~2022-10-24 10:39] MED LIST changes: +LEVO750T PO; -LEVO750T39 PO
== END 2022-10-24 11:20 ==
LOC: SLEEP 10:39
PROVIDERS: ATTEND Nurse Practitioner Family
DX: G47.10 Hypersomnia, unspecified (principal); J94.9 Pleural condition, unspecified
CPT/HCPCS: G0399